=== PATIENT | male | born 1980 | race African-American/Black ===

== ENCOUNTER 2016-07-09 21:00 | Emergency (ER) | payer MEDICAID ==
[~2016-07-09] VITALS: Ht 172.7 cm; Wt 75.0 kg
[~2016-07-09 21:00] MED LIST: BACT800T5 PO; CEPH-460 PO; PERC5TAB12 PO
[2016-07-09] MEDS ORDERED: SODIUM CHLOR 0.9% 1000 ML INJ 1,000 ML IV SCH (21:13)
[2016-07-09 21:15] VITALS: BP 145/85; PULSE 93; RESP 18; TEMP 98.5; O2SAT 98
[2016-07-09] MEDS ORDERED: KETOROLAC TROMETHAMINE 30 MG/ML (IVP) VIAL IVP ONE (21:15)
[2016-07-09] MEDS ORDERED: ONDANSETRON HCL 4 MG/2 ML VIAL IVP ONE (21:15)
[2016-07-09 21:55] LABS: AUTOMATED NEUTROPHIL # 4.3 TH/MM3 (1.8-7.7); BASOPHIL % 0.4 % (0.0-2.0); EOSINOPHIL % 0.2 % (0.0-4.0); HEMATOCRIT 44.5 % (39.0-51.0); HEMO FLAGS DIFF FINAL; LYMPH % 28.1 % (9.0-44.0); MEAN CELL VOLUME 88.4 FL (80.0-100.0); MEAN CORPUSCULAR HEMOGLOBIN 29.7 PG (27.0-34.0); MEAN CORPUSCULAR HGB CONC 33.6 % (32.0-36.0); MONO % 10.5 % (0.0-8.0); NEUT % 60.8 % (16.0-70.0); PLATELET COUNT 189 TH/MM3 (150-450); RED BLOOD COUNT 5.04 MIL/MM3 (4.50-5.90); RED CELL DISTRIBUTION WIDTH 12.9 % (11.6-17.2); WHITE BLOOD COUNT 7.1 TH/MM3 (4.0-11.0)
--- NOTE | 2016-07-09 21:55 | RADRPT ---
EXAM DATE/TIME: 07/09/2016 21:44 [place] COMPARISON: SCAPULA LEFT, December 30, 2014, 20:15. CHEST SINGLE AP, January 28, 2012, 6:13. INDICATIONS : Chest Pain MEDICAL HISTORY : Unobtainable SURGICAL HISTORY : Unobtainable ENCOUNTER: Initial ACUITY: 1 day PAIN SCORE: 5/10 LOCATION: Bilateral chest FINDINGS: A single view of the chest demonstrates prominent lucency in the left upper lobe. Similar changes but to a lesser degree in the right apex. No consolidation or pleural effusion. The cardiomediastinal co ntours are unremarkable. Osseous structures are intact. CONCLUSION: Prominent lucencies in the upper lobes greater in the left upper lobe possibly related to bullous aidan nges. These are new findings from previous study. Saurabh Michaels MD on July 09, 2016 at 21:51 Board Certified Radiologist. This report was verified electronically.
[2016-07-09 22:07] LABS: BLOOD, URINE NEG (NEG); GLUCOSE,URINE 1000 mg/dL (NEG); KETONE, URINE TRACE mg/dL (NEG); NITRITE,URINE NEG (NEG); SQUAMOUS EPITHELIAL CELL URINE <1 /hpf (0-5); URINE COLOR YELLOW (YELLW/STRAW)
[2016-07-09 22:08] LABS: COMMENT (UR) CULT NOT INDICATED; CULTURE IF INDICATED CULT NOT INDICATED
[2016-07-09 22:12] LABS: AMPHETAMINE, URINE NEG (NEG); BARBITURATES, URINE NEG (NEG); COCAINE, URINE POS (NEG)
--- NOTE | 2016-07-09 22:17 | PD ---
HPI Chief Complaint: General Weakness Time Seen by Provider: 22:12 Travel History International Travel<30 days: No Contact w/Intl Traveler<30days: No Traveled to known affect area: No History of Present Illness HPI 35-year-old male that presents to the ED for evaluation of generalized weakness. Patient is not really a good historian and all of the history I can obtain from him is that he cannot eat for the past 3 days and is feeling nauseous and continues to touch his belly when I asked him if he has any pain he states that he just has no appetite. He does appear to be in some discomfort. Per the ED nurse ambulance stated that apparently the friend stated that he might have been seeing things that weren't there. This is unclear as patient doesn't seem to be complaining of this. He completely denies this. Again history is somewhat limited. He is not really a good historian. He does appear to have a history of diabetes from her medical records. Unclear if he is compliant. He denies any drug abuse or alcohol. He states that he overall doesn't feel well. He continues to mention to me that he just doesn't feel like he wants to eat. Again history is limited. Per patient the symptoms have been ongoing for 3 days but worsening today. PFSH Past Medical History Hx Anticoagulant Therapy: No Asthma: No Autoimmune Disease: No Anxiety: Yes Cardiovascular Problems: No Chemotherapy: No COPD: No Cerebrovascular Accident: No Diabetes: No Diminished Hearing: No Respiratory: No Past Surgical History Surgical History: No Previous Surgery Hysterectomy: No Social History Alcohol Use: Yes (OCCASIONALLY) Tobacco Use: Yes (HALF A PACK PER DAY) Substance Use: No Allergies-Medications (Allergen,Severity, Reaction): Coded Allergies: No Known Allergies (Verified , 07/09/16) Reported Meds & Prescriptions Reported Meds & Active Scripts Active Review of Systems ROS Limitations: Poor Historian General / Constitutional: No: Fever, Chills, Weight Gain, Weight Loss, Other Eyes: No: Diploplia, Blurred Vision, Photophobia, Drainage, Redness, Foreign Body Sensation, Pain, Tearing, Blind Spots, Visual changes, Blindness, Other HENT: No: Headaches, Vertigo, Lightheadedness, Sore Throat, Rhinitis, Rhinorrhea, Congestion, Nosebleed, Neck Stiffness, Neck Pain, Masses, Gingival Bleeding, Dental Difficulties, Ear Discharge, Earache, Other Cardiovascular: No: Chest Pain or Discomfort, Palpitations, Irregular Rhythm, Tachycardia, Diaphoresis, Syncope, Dyspnea on exertion, Varicosities, Edema, Cyanosis, Varicosities, Phlebitis, Claudication, Other Respiratory: No: Cough, Shortness of Breath, Wheezing, Sneezing, Orthopnea, Hemoptysis, Stridor, Night Sweats, Pleuritic Pain, Other Gastrointestinal: Positive: Nausea, Vomiting, Abdominal Pain, Loss of Appetite , No: Diarrhea, Hematemesis, Hematochezia, Constipation, Changes in Bowel Habits, Indigestion, Dysphagia, Other Genitourinary: No: Urgency, Frequency, Dysuria, Nocturia, Hematuria, Decreased Urinary Output, Oliguria, Hesitancy, Dribbling, Incontinence, Pelvic Pain, Flank Pain, Dyspareunia, Discharge, Dysmenorrhea, Menorrhagia, Metorrhagia, Vaginal Bleeding, Other Musculoskeletal: No: Myalgias, Arthralgias, Limited ROM, Weakness, Cramping, Edema, Pain, Atrophy, Other Skin: No Rash, No Itching, No Dryness, No Lumps, No Hives, No Change in Pigmentation, No Change in nails, No Alopecia, No Lesions, No Breast Lumps, No Breast Tenderness, No Breast Swelling, No Other Neurologic: No: Weakness, Dizziness, Syncope, Focal Abnormalities, Coordination Problem, Tremor, Ataxia, Headache, Change in Mentation, Slurred Speech, Paresthesia, Incontinence, Seizures, Sensory Disturbance, Other Psychiatric: No: Anxiety, Depression, Suicidal Ideations, Disorder of Thought, Mood Disorder, Substance Abuse, Homicidal Ideation, Other Endocrine: No: Heat Intolerance, Cold Intolerance, Polyuria, Polydipsia, Other Hematologic/Lymphatic: No: Easy Bruising, Lymph Node Enlargement, Other Physical Exam Exam Limitations: Poor Historian Narrative GENERAL: SKIN: Warm and dry. HEAD: Atraumatic. Normocephalic. EYES: Pupils equal and round. No scleral icterus. No injection or drainage. ENT: No nasal bleeding or discharge. Mucous membranes pink and moist. Tongue is midline. No uvula deviation. NECK: Trachea midline. No JVD. CARDIOVASCULAR: Regular rate and rhythm. No murmurs, S3, S4. RESPIRATORY: No accessory muscle use. Clear to auscultation. Breath sounds equal bilaterally. GASTROINTESTINAL: Abdomen soft, non-tender, nondistended. Hepatic and splenic margins not palpable. MUSCULOSKELETAL: Extremities without clubbing, cyanosis, or edema. No obvious deformities. Full range of motion of the upper and lower extremities bilaterally. 2+ pulses bilaterally. NEUROLOGICAL: Awake and alert. No obvious cranial nerve deficits. Motor grossly within normal limits. Five out of 5 muscle strength in the arms and legs. Normal speech. PSYCHIATRIC: Appropriate mood and affect; insight and judgment normal. Data Data Last Documented VS Vital Signs Date Time Temp Pulse Resp B/P Pulse Ox O2 Delivery O2 Flow Rate FiO2 07/09/16 21:18 93 18 98 Room Air 07/09/16 21:15 98.5 145/85 Orders Complete Blood Count With Diff (07/09/16 21:13) Comprehensive Metabolic Panel (07/09/16 21:13) Lipase (07/09/16 21:13) Urinalysis - C+S If Indicated (07/09/16 21:13) Magnesium (Mg) (07/09/16 21:13) Thyroid Stimulating Hormone (07/09/16 21:13) Chest, Single Ap (07/09/16 21:13) Iv Access Insert/Monitor (07/09/16 21:13) Ecg Monitoring (07/09/16 21:13) Oximetry (07/09/16 21:13) Ondansetron Inj (Zofran Inj) (07/09/16 21:15) Sodium Chlor 0.9% 1000 Ml Inj (Ns 1000 M (07/09/16 21:13) Ketorolac Inj (Toradol Inj) (07/09/16 21:15) Drug Screen, Random Urine (07/09/16 21:13) Lactic Acid (07/09/16 21:18) Creatine Kinase (Cpk) (07/09/16 21:13) Troponin I (07/09/16 22:22) Ct Abd/Pel W Iv Contrast(Rout) (07/09/16 ) Electrocardiogram (07/09/16 ) CKMB (07/09/16 21:30) CKMB% (07/09/16 21:30) Labs Laboratory Tests Test 07/09/16 07/09/16 20:30 21:30 Urine Color YELLOW Urine Turbidity CLEAR Urine pH 6.0 Urine Specific [place] 1.021 Urine Protein TRACE mg/dL Urine Glucose (UA) 1000 mg/dL Urine Ketones TRACE mg/dL Urine Occult Blood NEG Urine Nitrite NEG Urine Bilirubin NEG Urine Urobilinogen 4.0 MG/DL Urine Leukocyte Esterase NEG Urine RBC LESS THAN 1 /hpf Urine WBC LESS THAN 1 /hpf Urine Squamous Epithelial <1 /hpf Cells Microscopic Urinalysis Comment CULT NOT INDICATED Urine Opiates Screen NEG Urine Barbiturates Screen NEG Urine Amphetamines Screen NEG Urine Benzodiazepines Screen NEG Urine Cocaine Screen POS Urine Cannabinoids Screen POS White Blood Count 7.1 TH/MM3 Red Blood Count 5.04 MIL/MM3 Hemoglobin 15.0 GM/DL Hematocrit 44.5 % Mean Corpuscular Volume 88.4 FL Mean Corpuscular Hemoglobin 29.7 PG Mean Corpuscular Hemoglobin 33.6 % Concent Red Cell Distribution Width 12.9 % Platelet Count 189 TH/MM3 Mean Platelet Volume 9.0 FL Neutrophils (%) (Auto) 60.8 % Lymphocytes (%) (Auto) 28.1 % Monocytes (%) (Auto) 10.5 % Eosinophils (%) (Auto) 0.2 % Basophils (%) (Auto) 0.4 % Neutrophils # (Auto) 4.3 TH/MM3 Lymphocytes # (Auto) 2.0 TH/MM3 Monocytes # (Auto) 0.7 TH/MM3 Eosinophils # (Auto) 0.0 TH/MM3 Basophils # (Auto) 0.0 TH/MM3 CBC Comment DIFF FINAL Differential Comment Sodium Level 137 MEQ/L Potassium Level 3.9 MEQ/L Chloride Level 101 MEQ/L Carbon Dioxide Level 25.6 MEQ/L Anion Gap 10 MEQ/L Blood Urea Nitrogen 10 MG/DL Creatinine 0.84 MG/DL Estimat Glomerular Filtration 126 ML/MIN Rate Random Glucose 174 MG/DL Lactic Acid Level 1.2 mmol/L Calcium Level 9.3 MG/DL Magnesium Level 2.3 MG/DL Total Bilirubin 1.9 MG/DL Aspartate Amino Transf 17 U/L (AST/SGOT) Alanine Aminotransferase 17 U/L (ALT/SGPT) Alkaline Phosphatase 65 U/L Total Creatine Kinase 379 U/L Creatine Kinase MB 1.9 NG/ML Creatine Kinase MB % 0.5 % Troponin I LESS THAN 0.02 NG/ML Total Protein 7.3 GM/DL Albumin 4.0 GM/DL Lipase 66 U/L Thyroid Stimulating Hormone 0.449 uIU/ML 3rd Gen [facility] Medical Decision Making Medical Screen Exam Complete: Yes Emergency Medical Condition: Yes Medical Record Reviewed: Yes Interpretation(s) CBC Diagram 07/09/16 21:30 UA shows some glucose Last Impressions Chest X-Ray 07/09/163 Signed Impressions: Service Date/Time: Saturday, July 09, 2016 21:44 - CONCLUSION: Prominent lucencies in the upper lobes greater in the left upper lobe possibly related to bullous changes. These are new findings from previous study. Saurabh Michaels MD BMP Diagram 07/09/16 21:30 EKG shows sinus rhythm with no sign of acute ischemia or arrhythmia ruled out by me and attending. Lactic acid within normal limits. Differential Diagnosis Electron abnormality versus abdominal pain versus sepsis versus infection versus DKA versus nausea and vomiting versus gastroenteritis versus gastritis versus pancreatitis versus acute abdomen Narrative Course 35-year-old male that presents to the ED for evaluation of generalized weakness and nausea and vomiting. Patient was properly examined and was found to have signs and symptoms of unclear etiology. Patient is not really good historian. Patient does have a history of diabetes and last time he was here he had an elevated sugars. Unclear if is compliant. At this time I recommend labs and imaging. Patient was given IV fluids and antiemetics. Initial labs and imaging were essentially unremarkable. Patient still seems to grab his abdomen as area of pain. Because of this CT of the belly will be done to any sign of acute disease. Case will be signed out to my attending pending disposition. Before patient was signed out to my attending patient opted to leave AMA. At this time patient is capable of making this decision. AMA: The risks of leaving against medical advice without further evaluation treatment were discussed with the patient. These risks include cardiac dysfunction, cardiac dysrhythmia, possible heart attack, possible stroke or . The patient indicated understanding of these risks and appeared to have the capacity to make this decision. Diagnosis Primary Impression: Left against medical advice Scripts No Active Prescriptions or Reported Meds Disposition: 07 AGAINST MEDICAL ADVICE Condition: Stable Richie Johnson Jul 09, 2016 22:17
[2016-07-09 22:20] LABS: ANION GAP 10 MEQ/L (5-15); AST (GOT) 17 U/L (15-37); BICARBONATE 25.6 MEQ/L (21.0-32.0); BLOOD UREA NITROGEN 10 MG/DL (7-18); CHLORIDE 101 MEQ/L (98-107); GLOMERULAR FILTRATION RATE 126 ML/MIN (>89); MAGNESIUM 2.3 MG/DL (1.5-2.5); POTASSIUM 3.9 MEQ/L (3.5-5.1); SODIUM (NA) 137 MEQ/L (136-145)
[2016-07-09 22:31] LABS: ALKALINE PHOSPHATASE 65 U/L (45-117); ALT (GPT) 17 U/L (12-78); CREATINE KINASE 379 U/L (39-308); TOTAL BILIRUBIN ADULT 1.9 MG/DL (0.2-1.0)
[2016-07-09 22:43] LABS: CKMB 1.9 NG/ML (0.5-3.6)
--- NOTE | 2016-07-09 23:58 | PD ---
Physical Exam Narrative General: The patient is a well-developed well-nourished male, intermittently crying on examination, intermittently holding his head, looking about the room in a paranoid fashion, at times asking if I hear which he is hearing. Head and Neck exam: Head is normocephalic atraumatic. Eyes: EOMI, pupils are equal round and reactive to light. Nose: Midline septum with pink mucous membranes Neck: No palpable lymphadenopathy. No nuchal rigidity. No thyromegaly. Cardiovascular: Regular rate and rhythm without murmurs, gallops, or rubs. Lungs: Clear to auscultation bilaterally. No wheezes, rhonchi, or rales. Abdomen: Soft, without tenderness to palpation in all 4 quadrants of the abdomen. No guarding, rebound, or rigidity. Normal bowel sounds are audible. Extremities: No clubbing, cyanosis, or edema. 2+ pulses in all 4 extremities. Neurologic Exam: Grossly nonfocal. Skin Exam: No rash noted. Intact skin that is warm and dry. Data Data Last Documented VS Vital Signs Date Time Temp Pulse Resp B/P Pulse Ox O2 Delivery O2 Flow Rate FiO2 07/10/16 06:28 115 18 142/88 96 Room Air 07/09/16 21:15 98.5 Orders Complete Blood Count With Diff (07/09/16 21:13) Comprehensive Metabolic Panel (07/09/16 21:13) Lipase (07/09/16 21:13) Urinalysis - C+S If Indicated (07/09/16 21:13) Magnesium (Mg) (07/09/16 21:13) Thyroid Stimulating Hormone (07/09/16 21:13) Chest, Single Ap (07/09/16 21:13) Iv Access Insert/Monitor (07/09/16 21:13) Ecg Monitoring (07/09/16 21:13) Oximetry (07/09/16 21:13) Ondansetron Inj (Zofran Inj) (07/09/16 21:15) Sodium Chlor 0.9% 1000 Ml Inj (Ns 1000 M (07/09/16 21:13) Ketorolac Inj (Toradol Inj) (07/09/16 21:15) Drug Screen, Random Urine (07/09/16 21:13) Lactic Acid (07/09/16 21:18) Creatine Kinase (Cpk) (07/09/16 21:13) Troponin I (07/09/16 22:22) CKMB (07/09/16 21:30) CKMB% (07/09/16 21:30) Lorazepam Inj (Ativan Inj) (07/10/16 00:00) Haloperidol Inj (Haldol Inj) (07/10/16 00:00) Diphenhydramine Inj (Benadryl Inj) (07/10/16 00:00) Diphenhydramine Inj (Benadryl Inj) (07/10/16 00:07) Haloperidol Inj (Haldol Inj) (07/10/16 00:07) Lorazepam Inj (Ativan Inj) (07/10/16 00:07) Psych Screen (07/10/16 01:54) Alcohol (Ethanol) (07/10/16 01:54) Restraints Violent (07/10/16 02:11) Diet Regular Basic (07/10/16 Breakfast) Labs Laboratory Tests Test 07/09/16 07/09/16 20:30 21:30 Urine Color YELLOW Urine Turbidity CLEAR Urine pH 6.0 Urine Specific [place] 1.021 Urine Protein TRACE mg/dL Urine Glucose (UA) 1000 mg/dL Urine Ketones TRACE mg/dL Urine Occult Blood NEG Urine Nitrite NEG Urine Bilirubin NEG Urine Urobilinogen 4.0 MG/DL Urine Leukocyte Esterase NEG Urine RBC LESS THAN 1 /hpf Urine WBC LESS THAN 1 /hpf Urine Squamous Epithelial <1 /hpf Cells Microscopic Urinalysis Comment CULT NOT INDICATED Urine Opiates Screen NEG Urine Barbiturates Screen NEG Urine Amphetamines Screen NEG Urine Benzodiazepines Screen NEG Urine Cocaine Screen POS Urine Cannabinoids Screen POS White Blood Count 7.1 TH/MM3 Red Blood Count 5.04 MIL/MM3 Hemoglobin 15.0 GM/DL Hematocrit 44.5 % Mean Corpuscular Volume 88.4 FL Mean Corpuscular Hemoglobin 29.7 PG Mean Corpuscular Hemoglobin 33.6 % Concent Red Cell Distribution Width 12.9 % Platelet Count 189 TH/MM3 Mean Platelet Volume 9.0 FL Neutrophils (%) (Auto) 60.8 % Lymphocytes (%) (Auto) 28.1 % Monocytes (%) (Auto) 10.5 % Eosinophils (%) (Auto) 0.2 % Basophils (%) (Auto) 0.4 % Neutrophils # (Auto) 4.3 TH/MM3 Lymphocytes # (Auto) 2.0 TH/MM3 Monocytes # (Auto) 0.7 TH/MM3 Eosinophils # (Auto) 0.0 TH/MM3 Basophils # (Auto) 0.0 TH/MM3 CBC Comment DIFF FINAL Differential Comment Sodium Level 137 MEQ/L Potassium Level 3.9 MEQ/L Chloride Level 101 MEQ/L Carbon Dioxide Level 25.6 MEQ/L Anion Gap 10 MEQ/L Blood Urea Nitrogen 10 MG/DL Creatinine 0.84 MG/DL Estimat Glomerular Filtration 126 ML/MIN Rate Random Glucose 174 MG/DL Lactic Acid Level 1.2 mmol/L Calcium Level 9.3 MG/DL Magnesium Level 2.3 MG/DL Total Bilirubin 1.9 MG/DL Aspartate Amino Transf 17 U/L (AST/SGOT) Alanine Aminotransferase 17 U/L (ALT/SGPT) Alkaline Phosphatase 65 U/L Total Creatine Kinase 379 U/L Creatine Kinase MB 1.9 NG/ML Creatine Kinase MB % 0.5 % Troponin I LESS THAN 0.02 NG/ML Total Protein 7.3 GM/DL Albumin 4.0 GM/DL Lipase 66 U/L Thyroid Stimulating Hormone 0.449 uIU/ML 3rd Gen Ethyl Alcohol Level 6 MG/DL MDM Medical Record Reviewed: Yes Supervised Visit with LUIS ENRIQUE: No Interpretation(s) Last Impressions Chest X-Ray 07/09/162112 Signed Impressions: Service Date/Time: Saturday, July 09, 2016 21:44 - CONCLUSION: Prominent lucencies in the upper lobes greater in the left upper lobe possibly related to bullous changes. These are new findings from previous study. Saurabh Michaels MD Differential Diagnosis Substance-induced mood disorder, versus acute substance intoxication, versus psychosis related to schizophrenia, versus bipolar with psychotic features. Narrative Course During the course of the patients emergency department visit, the patients history, examination, and differential diagnosis were reviewed with the patient. The patient had IV access obtained and blood work sent for analysis. The patient was initially seen by Constantine, the physician blood donor unit assistant. Please see his complete history and physical. He had ordered an evaluation on the patient , however the patient decided to leave AGAINST MEDICAL ADVICE. Prior to the patient leaving and signing out AGAINST MEDICAL ADVICE the patient became agitated, paranoid, and tearful. The patient was noted to be hallucinating. The patient reports that he is hearing voices. I asked that the patient had any history of psychiatric problems and he would shake his head yes. He also should his head yes that he would like to have a psychiatrist see him, however he then became increasingly agitated and began to scream. The patient was placed in restraints for his and the staff's safety. The patient was given Ativan 2 mg IM, Benadryl 25 mg IM, and Haldol 5 mg IM. A Martinez act was written. A psychiatric screen was ordered. The patients laboratory studies were reviewed and remarkable for a white count of 7.1, hemoglobin 15, platelets 189 with 10.5 monocytes, CMP is remarkable for glucose of 174, lactic acid 1.2, total bilirubin 1.9, CPK 379 with an MB percent is 0.5, troponin I less than 0.02, TSH 0.44, lipase 66, urinalysis shows 1000 glucose otherwise unremarkable, urine drug screen is positive for cocaine and marijuana, alcohol 6. Chest x-ray shows what appears to be bolus changes in the upper lobes of the lung. The patient has been medically cleared for evaluation by the psychiatric screener for acute psychosis. Diagnosis Primary Impression: Acute psychosis Additional Impressions: Paranoid delusion Auditory hallucinations Admitting Information Admitting Physician Requests: Admit Scripts No Active Prescriptions or Reported Meds Disposition: 07 AGAINST MEDICAL ADVICE Condition: Stable Tessie Marmolejo MD Jul 09, 2016 23:58
[2016-07-10] MEDS ORDERED: LORazepam 2 MG/ML VIAL IM ONE
[2016-07-10] MEDS ORDERED: HALOPERIDOL LACTATE 5 MG/ML AMP IM ONE
[2016-07-10] MEDS ORDERED: diphenhydrAMINE HCL 50 MG/ML VIAL IM ONE
[2016-07-10] MEDS ORDERED: HALOPERIDOL LACTATE 5 MG/ML AMP ONE (00:07)
[2016-07-10] MEDS ORDERED: LORazepam 2 MG/ML VIAL ONE (00:07)
[2016-07-10] MEDS ORDERED: diphenhydrAMINE HCL 50 MG/ML VIAL ONE (00:07)
[2016-07-10 06:28] VITALS: BP 142/88; PULSE 115; RESP 18; O2SAT 96
--- NOTE | 2016-07-10 11:02 | PD ---
History of Present Illness Chief Complaint: General Weakness Time Seen by Provider: 10:45 Travel History International Travel<30 Days: No Contact w/Intl Traveler<30days: No Known affected area: No Legal Status Legal Status: Michelle Martinez Act Signed By: Michelle Jefferson Comment: Dr. Tessie Marmolejo, [place] @ [facility] [place] of Present Illness: History of Present Illness HPI 35-year-old male with no reported psychiatric history that presents to the ED initially on a voluntary basis and later BA for evaluation of generalized weakness. As per Ed documentation he presented reporting feeling weak and unable to eat x 3 days. The EMS report indicated that his friends decided to call an ambulance as he was " seeing things that were not there".While in the ED he became suspicious and guarded and began to scream that he was hearing voices and that people were out to kill him. He could not be redirected and required an ETO. Patient was then transferred to J [facility] where he was monitored overnight. he presented no behavioral concerns while in [facility]. Patient's toxicology is positive for cannabinoids as well as cocaine but he continues to deny that he uses these substances. As per EMR he has presented to Ed for evaluation of anxiety and his last visit for such was in 2004. Patient is seen in J pod. Awake, alert and oriented. He is dressed in hospital blues and is maintaining basic hygiene. Speech is low tone. he answers questions appropriately. It is clear . He appears anxious and states that he is anxious being here and that he wants to go home. He appears to be of low intellectual capacity . He denies any hallucinations and does not appear internally stimulated. he denies any suicidal or homicidal ideation, intent or plan. He continues to deny that he uses marijuana. In terms of his friend's concerns for him he states " They say I was smoking Flakka but I wasn't using that". PFSH Past Medical History Hx Anticoagulant Therapy: No Asthma: No Autoimmune Disease: No Anxiety: Yes Cardiovascular Problems: No Chemotherapy: No COPD: No Cerebrovascular Accident: No Diabetes: No Diminished Hearing: No Respiratory: No Past Surgical History Surgical History: No Previous Surgery Hysterectomy: No Psychiatric History Psychiatric History Hx Psychiatric Treatment: denies any History of Inpatient Treatment: No Guns or firearms in home: No Social History Single male . Lives with his mother. On SSI for learning disability. Hx Alcohol Use: Yes (OCCASIONALLY) Hx Tobacco Use: Yes (HALF A PACK PER DAY) Hx Substance Use: No Substance Use Type: Marijuana, Cocaine Other Substances Used: Possibly Flakka Hx of Substance Use Treatment: No Family Psychiatric History None reported Allergies-Medications (Allergen,Severity, Reaction): Coded Allergies: No Known Allergies (Verified , 07/09/16) Reported Meds & Prescriptions Reported Meds & Active Scripts Active Review of Systems Except as stated in HPI: all other systems reviewed are Neg Psychiatric: DENIES: Anxiety, Confusion, Mood changes, Depression, Hallucinations, Agitation, Suicidal Ideation, Homicidal Ideation, Delusions Exam Alert: Yes [place]: Person (ox4) Mood: Anxious Affect: Euthymic Speech: Clear, Logical Eye Contact: Indirect Memory Intact: Comment (no impairmetn) Hallucinations: Other (denies any) Delusions: No Suicidal: Ideation (denies any) Homicidal: Ideation (denies any) Insight/Judgement Poor. Not impaired MDM Medical Decision Making Medical Record Reviewed: Yes Assessment/Plan 35 year old male with no reported psychiatric history who presents to ed initially voluntary for evaluation of nausea and not eating as well as for seeing things as per his friends. While in the Ed he became agitated and paranoid. His toxicology is positive for cocaine, cannabinoids. He denies use of substances but this morning he shares that he " may have used Flakka". His presentation certainly is indicative of someone who may have ingested this substances. This morning he is clear and denies any hallucinations, paranoia or suicidal or homicidal ideation, intent or plan. The BA will be lifted and he will be discharged as he does not present criteria at this time. . Usual counseling regarding substance use is provided to this patient. Orders Complete Blood Count With Diff (07/09/16 21:13) Comprehensive Metabolic Panel (07/09/16 21:13) Lipase (07/09/16 21:13) Urinalysis - C+S If Indicated (07/09/16 21:13) Magnesium (Mg) (07/09/16 21:13) Thyroid Stimulating Hormone (07/09/16 21:13) Chest, Single Ap (07/09/16 21:13) Iv Access Insert/Monitor (07/09/16 21:13) Ecg Monitoring (07/09/16 21:13) Oximetry (07/09/16 21:13) Ondansetron Inj (Zofran Inj) (07/09/16 21:15) Sodium Chlor 0.9% 1000 Ml Inj (Ns 1000 M (07/09/16 21:13) Ketorolac Inj (Toradol Inj) (07/09/16 21:15) Drug Screen, Random Urine (07/09/16 21:13) Lactic Acid (07/09/16 21:18) Creatine Kinase (Cpk) (07/09/16 21:13) Troponin I (07/09/16 22:22) Electrocardiogram (07/09/16 ) CKMB (07/09/16 21:30) CKMB% (07/09/16 21:30) Lorazepam Inj (Ativan Inj) (07/10/16 00:00) Haloperidol Inj (Haldol Inj) (07/10/16 00:00) Diphenhydramine Inj (Benadryl Inj) (07/10/16 00:00) Diphenhydramine Inj (Benadryl Inj) (07/10/16 00:07) Haloperidol Inj (Haldol Inj) (07/10/16 00:07) Lorazepam Inj (Ativan Inj) (07/10/16 00:07) Psych Screen (07/10/16 01:54) Alcohol (Ethanol) (07/10/16 01:54) Restraints Violent (07/10/16 02:11) Diet Regular Basic (07/10/16 Breakfast) Results Vital Signs Date Time Temp Pulse Resp B/P Pulse Ox O2 Delivery O2 Flow Rate FiO2 07/10/16 06:28 115 18 142/88 96 Room Air 07/09/16 21:18 93 18 98 Room Air 07/09/16 21:15 98.5 93 18 145/85 98 Laboratory Tests Test 07/09/16 07/09/16 20:30 21:30 Urine Color YELLOW Urine Turbidity CLEAR Urine pH 6.0 Urine Specific [place] 1.021 Urine Protein TRACE Urine Glucose (UA) 1000 Urine Ketones TRACE Urine Occult Blood NEG Urine Nitrite NEG Urine Bilirubin NEG Urine Urobilinogen 4.0 Urine Leukocyte Esterase NEG Urine RBC LESS THAN 1 Urine WBC LESS THAN 1 Urine Squamous Epithelial <1 Cells Microscopic Urinalysis Comment CULT NOT INDICATED Urine Opiates Screen NEG Urine Barbiturates Screen NEG Urine Amphetamines Screen NEG Urine Benzodiazepines Screen NEG Urine Cocaine Screen POS Urine Cannabinoids Screen POS White Blood Count 7.1 Red Blood Count 5.04 Hemoglobin 15.0 Hematocrit 44.5 Mean Corpuscular Volume 88.4 Mean Corpuscular Hemoglobin 29.7 Mean Corpuscular Hemoglobin 33.6 Concent Red Cell Distribution Width 12.9 Platelet Count 189 Mean Platelet Volume 9.0 Neutrophils (%) (Auto) 60.8 Lymphocytes (%) (Auto) 28.1 Monocytes (%) (Auto) 10.5 Eosinophils (%) (Auto) 0.2 Basophils (%) (Auto) 0.4 Neutrophils # (Auto) 4.3 Lymphocytes # (Auto) 2.0 Monocytes # (Auto) 0.7 Eosinophils # (Auto) 0.0 Basophils # (Auto) 0.0 CBC Comment DIFF FINAL Differential Comment Sodium Level 137 Potassium Level 3.9 Chloride Level 101 Carbon Dioxide Level 25.6 Anion Gap 10 Blood Urea Nitrogen 10 Creatinine 0.84 Estimat Glomerular Filtration 126 Rate Random Glucose 174 Lactic Acid Level 1.2 Calcium Level 9.3 Magnesium Level 2.3 Total Bilirubin 1.9 Aspartate Amino Transf 17 (AST/SGOT) Alanine Aminotransferase 17 (ALT/SGPT) Alkaline Phosphatase 65 Total Creatine Kinase 379 Creatine Kinase MB 1.9 Creatine Kinase MB % 0.5 Troponin I LESS THAN 0.02 Total Protein 7.3 Albumin 4.0 Lipase 66 Thyroid Stimulating Hormone 0.449 3rd Gen Ethyl Alcohol Level 6 Diagnosis Primary Impression: Substance-induced psychotic disorder with hallucinations Psychiatrically Cleared: Yes Med/ Other Pt Specific Info: No Meds Exist/No RX given Prescriptions No Active Prescriptions or Reported Meds Disposition: 01 DISCHARGE HOME Condition: Stable Tiffanie Seth MAURICIO Jul 10, 2016 11:02
[2016-08-10] MEDS ORDERED: BLOO1KIT65 (09:50)
== END 2016-07-10 11:30 | disposition home or self-care (01) ==
LOC: NEPE 21:00 → NEPJ 07-10 11:30
DX: F24 Shared psychotic disorder (principal); E11.9 Type 2 diabetes mellitus without complications; F17.210 Nicotine dependence, cigarettes, uncomplicated; F14.10 Cocaine abuse, uncomplicated; F12.10 Cannabis abuse, uncomplicated; R44.0 Auditory hallucinations; F22 Delusional disorders
CPT/HCPCS: 71010; 80053; 80307; 80320; 81001; 82550; 82552; 83605; 83690; 83735; 84443; 84484; 85025; 96372; 96374; 96375; 99285; J1200; J1630; J1885; J2060; J2405; J7030

== ENCOUNTER 2016-07-17 12:29 | Emergency (ER) | payer MEDICAID ==
[2016-07-17 12:31] VITALS: BP 140/90; PULSE 100; RESP 24; TEMP 98; O2SAT 94
--- NOTE | 2016-07-17 14:44 | PD ---
HPI Chief Complaint: Skin Problem Time Seen by Provider: 14:44 Travel History International Travel<30 days: No Contact w/Intl Traveler<30days: No Traveled to known affect area: No History of Present Illness HPI 35-year-old male presents to emergency department for evaluation of an abscess on his right buttock. Patient states the worse and over the last few days. Reports 10 on 10 pain. Cannot sit on it without significant pain. No fevers or chills. No other symptoms to report. PFSH Past Medical History Hx Anticoagulant Therapy: No Asthma: No Autoimmune Disease: No Anxiety: Yes Cardiovascular Problems: No Chemotherapy: No COPD: No Cerebrovascular Accident: No Diabetes: No Diminished Hearing: No Respiratory: No Past Surgical History Hysterectomy: No Social History Alcohol Use: Yes (OCCASIONALLY) Tobacco Use: Yes (HALF A PACK PER DAY) Substance Use: No Allergies-Medications (Allergen,Severity, Reaction): Coded Allergies: No Known Allergies (Verified , 07/09/16) Reported Meds & Prescriptions Reported Meds & Active Scripts Active Ibuprofen 800 Mg Tab 800 Mg PO Q8H PRN Clindamycin (Clindamycin HCl) 150 Mg Cap 300 Mg PO Q6H Review of Systems Except as stated in HPI: all other systems reviewed are Neg Physical Exam Narrative GENERAL: Well-nourished, well-developed male patient no acute distress SKIN: There is an indurated area in the right buttock which measures about 7 cm in diameter. It is fluctuant but there is no pointing or drainage. There is a zone of inflammation around it but no lymphangitis. HEAD: Normocephalic. EYES: No scleral icterus. No injection or drainage. NECK: Supple, trachea midline. No JVD or lymphadenopathy. CARDIOVASCULAR: Regular rate and rhythm without murmurs, gallops, or rubs. RESPIRATORY: Breath sounds equal bilaterally. No accessory muscle use. GASTROINTESTINAL: Abdomen soft, non-tender, nondistended. MUSCULOSKELETAL: No cyanosis, or edema. BACK: Nontender without obvious deformity. No CVA tenderness. Data Data Last Documented VS Vital Signs Date Time Temp Pulse Resp B/P Pulse Ox O2 Delivery O2 Flow Rate FiO2 07/17/16 12:31 98.0 100 24 140/90 94 Room Air Orders Wound Culture And Gram Stain (07/17/16 15:10) MDM Medical Decision Making Medical Screen Exam Complete: Yes Emergency Medical Condition: Yes Medical Record Reviewed: Yes Differential Diagnosis abscess versus erysipelas versus cellulitis Narrative Course 35-year-old male presents to the emergency department for evaluation of an abscess on his right buttock. Patient appears otherwise well. I&D is complete. Patient is counseled on care. He agrees to return immediately with any acute worsening of symptoms. Procedures Procedure Narrative INCISION AND DRAINAGE OF ABSCESS: The area was prepped and was sterilely draped. Topical Sutton chloride was used to anesthetize the area. The area was properly anesthetized. A number 11 scalpel was used to make a 1-1/2-cm incision across the area of the abscess. Cultures were obtained. The abscess was drained an irrigated with normal saline. Quarter inch iodoform packing was placed in the wound. Sterile dressing applied. Patient advised to have packing removed in two days. Diagnosis Primary Impression: Abscess of right buttock Referrals: Primary Care Physician Patient Instructions: Abscess Incision and Drainage (ED), General Instructions Additional Instructions: Warm compresses Follow-up with primary care provider Remove packing in 2 days Return immediately to the emergency department with any acute worsening of symptoms Med/Other Pt SpecificInfo: Prescription(s) given Scripts Ibuprofen 800 Mg [id number] Mg PO Q8H PRN (PAIN SCALE 1 TO 10) #30 TAB Ref 0 Prov:Barbara Ridley 07/17/16 Clindamycin 150 Mg [id number] Mg PO Q6H #10 CAP Ref 0 Prov:Barbara Ridley 07/17/16 Disposition: 01 DISCHARGE HOME Condition: Stable Barbara Ridley Jul 17, 2016 14:44
[2016-07-17] MEDS ORDERED: IBUP800T23 PO (15:29)
[2016-07-17] MEDS ORDERED: CLIN1CAP5 PO (15:29)
[2016-08-10] MEDS ORDERED: BLOO1KIT65 (09:50)
== END 2016-07-17 16:03 | disposition home or self-care (01) ==
LOC: NEPB 12:29
DX: L02.31 Cutaneous abscess of buttock (principal); F17.210 Nicotine dependence, cigarettes, uncomplicated
CPT/HCPCS: 10061; 87070

== ENCOUNTER 2016-08-08 04:04 | Emergency (ER) | payer MEDICAID, OTHER ==
[~2016-08-08] VITALS: Ht 162.6 cm; Wt 72.0 kg
[~2016-08-08 04:04] MED LIST changes: -BACT800T5 PO; -CEPH-460 PO; +CLIN1CAP5 PO; +IBUP800T23 PO; -PERC5TAB12 PO
--- NOTE | 2016-08-08 04:20 | PD ---
HPI Chief Complaint: psychiatric evaluation Time Seen by Provider: 04:16 Travel History International Travel<30 days: No Contact w/Intl Traveler<30days: No History of Present Illness HPI Patient comes in under a Martinez act by police for seeing people chasing him. Patient reports that several hours ago he smoked Flakka, which is what was causing him to see things. Patient states he was knocking on people's doors trying to get help and that is what caused police to be called and having him brought to the hospital. Patient denies any medical concerns at this time. States he just wants to sleep. Denies any chest pain, shortness of breath, abdominal pain, headache, fevers, or currently seeing things. Denies any suicidal or homicidal ideations. PFSH Past Medical History Hx Anticoagulant Therapy: No Asthma: No Autoimmune Disease: No Anxiety: Yes Cardiovascular Problems: No Chemotherapy: No COPD: No Cerebrovascular Accident: No Diabetes: No Diminished Hearing: No Respiratory: No Past Surgical History Hysterectomy: No Social History Alcohol Use: Yes (OCCASIONALLY) Tobacco Use: Yes (HALF A PACK PER DAY) Substance Use: No Allergies-Medications (Allergen,Severity, Reaction): Coded Allergies: No Known Allergies (Verified , 08/08/16) Reported Meds & Prescriptions Reported Meds & Active Scripts Active Review of Systems Except as stated in HPI: all other systems reviewed are Neg Physical Exam Narrative GENERAL: Well-developed, well nourished, in no acute distress, and non-ill appearing. SKIN: Warm and dry. HEAD: Atraumatic. Normocephalic. EYES: Pupils equal and round. EOMI. No scleral icterus. No injection or drainage. ENT: No nasal bleeding or discharge. Mucous membranes pink and moist. NECK: Trachea midline. Supple. No nuclear rigidity. CARDIOVASCULAR: Regular rate and rhythm. No murmur appreciated. RESPIRATORY: No accessory muscle use. No respiratory distress. Clear to auscultation. Breath sounds equal bilaterally. MUSCULOSKELETAL: No obvious deformities. No clubbing. No cyanosis. No edema. Full range of motion. NEUROLOGICAL: Awake and alert. No obvious cranial nerve deficits. Motor grossly within normal limits. Normal speech. PSYCHIATRIC: Appropriate mood and affect; insight and judgment normal. Data Data Last Documented VS Vital Signs Date Time Temp Pulse Resp B/P Pulse Ox O2 Delivery O2 Flow Rate FiO2 08/08/16 18:00 86 18 117/85 Room Air 3/28/17 12:23 99 08/08/16 04:32 98.4 Orders Complete Blood Count With Diff (08/08/16 04:11) Comprehensive Metabolic Panel (08/08/16 04:11) Psych Screen (08/08/16 04:11) Drug Screen, Random Urine (08/08/16 04:11) Alcohol (Ethanol) (08/08/16 04:11) Salicylates (Aspirin) (08/08/16 04:11) Tylenol (Acetaminophen) (08/08/16 04:11) Lorazepam Inj (Ativan Inj) (08/08/16 05:15) Iv Access Insert/Monitor (08/08/16 05:23) Sodium Chlor 0.9% 1000 Ml Inj (Ns 1000 M (08/08/16 05:30) Lorazepam Inj (Ativan Inj) (08/08/16 05:45) Lorazepam Inj (Ativan Inj) (08/08/16 06:15) Blood Glucose (08/08/16 06:20) Diet Regular Basic (08/08/16 Lunch) Diet Regular Basic (08/08/16 Dinner) Labs Laboratory Tests Test 08/08/16 04:30 White Blood Count 8.6 TH/MM3 Red Blood Count 4.83 MIL/MM3 Hemoglobin 14.2 GM/DL Hematocrit 42.5 % Mean Corpuscular Volume 88.1 FL Mean Corpuscular Hemoglobin 29.3 PG Mean Corpuscular Hemoglobin 33.3 % Concent Red Cell Distribution Width 12.8 % Platelet Count 232 TH/MM3 Mean Platelet Volume 8.7 FL Neutrophils (%) (Auto) 74.3 % Lymphocytes (%) (Auto) 14.7 % Monocytes (%) (Auto) 10.1 % Eosinophils (%) (Auto) 0.2 % Basophils (%) (Auto) 0.7 % Neutrophils # (Auto) 6.4 TH/MM3 Lymphocytes # (Auto) 1.3 TH/MM3 Monocytes # (Auto) 0.9 TH/MM3 Eosinophils # (Auto) 0.0 TH/MM3 Basophils # (Auto) 0.1 TH/MM3 CBC Comment DIFF FINAL Differential Comment Sodium Level 135 MEQ/L Potassium Level 4.4 MEQ/L Chloride Level 101 MEQ/L Carbon Dioxide Level 22.1 MEQ/L Anion Gap 12 MEQ/L Blood Urea Nitrogen 11 MG/DL Creatinine 1.37 MG/DL Estimat Glomerular Filtration 72 ML/MIN Rate Random Glucose 479 MG/DL Calcium Level 9.8 MG/DL Total Bilirubin 1.0 MG/DL Aspartate Amino Transf 14 U/L (AST/SGOT) Alanine Aminotransferase 17 U/L (ALT/SGPT) Alkaline Phosphatase 72 U/L Total Protein 7.4 GM/DL Albumin 3.8 GM/DL Salicylates Level 5.2 MG/DL Urine Opiates Screen NEG Acetaminophen Level LESS THAN 2.0 MCG/ML Urine Barbiturates Screen NEG Urine Amphetamines Screen NEG Urine Benzodiazepines Screen NEG Urine Cocaine Screen NEG Urine Cannabinoids Screen NEG Ethyl Alcohol Level LESS THAN 3 MG/DL MDM Medical Decision Making Medical Screen Exam Complete: Yes Emergency Medical Condition: Yes Differential Diagnosis Acute psychosis, substance abuse, alcohol intoxication, paranoia, delusional, other Narrative Course Patient denies any known history of diabetes, however reviewing his record has had blood sugars in the 400s April 2015 but does not appear to have ever been started on any medication. Patient has had visits since with blood sugars below 200. I discussed patient with Dr. Killian, who is in agreement with plan of care and diagnosis. Patient was seen and examined. Labs were obtained and reviewed. Patient is given IV fluid due to his elevated blood sugar. Patient was given Ativan to help treat his substance-induced psychosis. Patient medically cleared for further treatment and evaluation by psych. Final disposition per psych. Diagnosis Primary Impression: Diabetes mellitus Qualified Code: E11.9 - Type 2 diabetes mellitus without complication, without long-term current use of insulin Additional Impression: Substance-induced psychotic disorder with hallucinations Referrals: [facility] Diabetes Education-Out [facility] Patient Instructions: General Instructions, Type 2 Diabetes in Adults (ED) Additional Instructions: Follow-up with your primary care physician and/or primary care clinic in one to 3 days for reevaluation of your diabetes and possible starting of medication. Return to the emergency department if symptoms get worse. Condition: Stable Guy Aguayo Aug 08, 2016 04:20
[2016-08-08 04:32] VITALS: BP 148/83; PULSE 109; RESP 16; TEMP 98.4; O2SAT 98
[2016-08-08 04:37] LABS: AUTOMATED NEUTROPHIL # 6.4 TH/MM3 (1.8-7.7); BASOPHIL # 0.1 TH/MM3 (0-0.2); BASOPHIL % 0.7 % (0.0-2.0); EOSINOPHIL % 0.2 % (0.0-4.0); HEMATOCRIT 42.5 % (39.0-51.0); HEMO FLAGS DIFF FINAL; LYMPH % 14.7 % (9.0-44.0); LYMPHOCYTE # 1.3 TH/MM3 (1.0-4.8); MEAN CELL VOLUME 88.1 FL (80.0-100.0); MEAN CORPUSCULAR HEMOGLOBIN 29.3 PG (27.0-34.0); MEAN CORPUSCULAR HGB CONC 33.3 % (32.0-36.0); MONO % 10.1 % (0.0-8.0); NEUT % 74.3 % (16.0-70.0); PLATELET COUNT 232 TH/MM3 (150-450); RED BLOOD COUNT 4.83 MIL/MM3 (4.50-5.90); RED CELL DISTRIBUTION WIDTH 12.8 % (11.6-17.2); WHITE BLOOD COUNT 8.6 TH/MM3 (4.0-11.0)
[2016-08-08 04:50] LABS: AMPHETAMINE, URINE NEG (NEG); BARBITURATES, URINE NEG (NEG); COCAINE, URINE NEG (NEG)
[2016-08-08 05:14] LABS: ACETAMINOPHEN LESS THAN 2.0 MCG/ML (10.0-30.0); ALKALINE PHOSPHATASE 72 U/L (45-117); ALT (GPT) 17 U/L (12-78); ANION GAP 12 MEQ/L (5-15); AST (GOT) 14 U/L (15-37); BICARBONATE 22.1 MEQ/L (21.0-32.0); BLOOD UREA NITROGEN 11 MG/DL (7-18); CHLORIDE 101 MEQ/L (98-107); GLOMERULAR FILTRATION RATE 72 ML/MIN (>89); POTASSIUM 4.4 MEQ/L (3.5-5.1); SODIUM (NA) 135 MEQ/L (136-145)
[2016-08-08] MEDS ORDERED: LORazepam 2 MG/ML VIAL IM ONE (05:15)
[2016-08-08] MEDS ORDERED: SODIUM CHLOR 0.9% 1000 ML INJ 1,000 ML IV ONE (05:30)
[2016-08-08] MEDS ORDERED: LORazepam 2 MG/ML VIAL IV PUSH ONE ×2 (05:45→06:15)
[2016-08-08 06:05] VITALS: PULSE 90; RESP 16; O2SAT 97
[2016-08-08 07:57] VITALS: BP 123/76; PULSE 66; RESP 16; O2SAT 98
[2016-08-08 12:23] VITALS: BP 120/71; PULSE 72; RESP 16; O2SAT 99
[2016-08-08 18:00] VITALS: BP 117/85; PULSE 86; RESP 18
[2016-08-08 22:28] VITALS: BP 136/76; PULSE 81; RESP 18; O2SAT 97
[2016-08-09 02:18] VITALS: BP 126/68; PULSE 71; RESP 18; O2SAT 95
[2016-08-09 06:12] VITALS: BP 139/64; PULSE 81; RESP 18; O2SAT 97
[2016-08-09 10:23] VITALS: BP 128/71; PULSE 72; RESP 16; O2SAT 100; O2SAT 98
[2016-08-09] MEDS ORDERED: SODIUM CHLOR 0.9% 1000 ML INJ 1,000 ML IV ONE (10:32)
[2016-08-09] MEDS ORDERED: SODIUM CHLORIDE 0.9% FLUSH 10 ML FLUSH IVF PRN (10:45)
[2016-08-09] MEDS ORDERED: metFORMIN HCL 500 MG TAB PO ONE (10:45)
[2016-08-09] MEDS ORDERED: INSULIN HUMAN REGULAR 1,000 UNITS/10 ML VIAL SQ ONE (10:45)
--- NOTE | 2016-08-09 10:51 | PD ---
HPI Chief Complaint: Psychiatric Symptoms Time Seen by Provider: 10:32 Travel History International Travel<30 days: No Contact w/Intl Traveler<30days: No Traveled to known affect area: No History of Present Illness HPI 35-year-old male was medically cleared yesterday and sent to the psych pod for psych evaluation. His blood work did have some hyperglycemia yesterday. Patient does not have history of diabetes. He says that his mother has diabetes. He does not have a primary care. He had breakfast this morning which included dinh, biscuit, orange juice and some other items. He was still in psych pod and they did a fingerstick and his blood sugar read more than 500. At this point they had cleared him from psych perspective but sent him back to the medical pod in the ER to reevaluate his hyperglycemia. His vital signs are stable. I went and spoke with the patient. He reiterated that he did not have a knowledge of diabetes that he had. His mother has history of diabetes. He does not seem to be in any other distress currently. No history of vomiting or diarrhea. No history of fever. His blood test from yesterday besides hyperglycemia was within normal limits. [facility] Past Medical History Narrative Medical List of his past medical, surgical, social and family history was reviewed from the nursing note. Hx Anticoagulant Therapy: No Asthma: No Autoimmune Disease: No Anxiety: Yes Cardiovascular Problems: No Chemotherapy: No COPD: No Cerebrovascular Accident: No Diabetes: No Diminished Hearing: No Respiratory: No Immunizations Current: Yes Tetanus Vaccination: < 5 Years Influenza Vaccination: Yes Past Surgical History Hysterectomy: No Social History Alcohol Use: Yes (OCCASIONALLY) Tobacco Use: Yes (HALF A PACK PER DAY) Substance Use: No Allergies-Medications (Allergen,Severity, Reaction): Coded Allergies: No Known Allergies (Verified , 08/08/16) Comments No known drug allergies. Reported Meds & Prescriptions Reported Meds & Active Scripts Active Accu-Chek Cyndi Connect W/Device (Blood Glucose Monitoring Suppl) 1 Kit Kit 1 Kit .ROUTE DIRECTED Glucophage (Metformin HCl) 500 Mg Tab 500 Mg PO BIDPC With meals Narrative Medication List of his home medications reviewed from the nursing note. Review of Systems Except as stated in HPI: all other systems reviewed are Neg Physical Exam Narrative GENERAL: Awake, alert, no obvious distress SKIN: Warm and dry. HEAD: Atraumatic. Normocephalic. EYES: Pupils equal and round. No scleral icterus. No injection or drainage. ENT: No nasal bleeding or discharge. Mucous membranes pink and moist. NECK: Trachea midline. No JVD. CARDIOVASCULAR: Regular rate and rhythm. No murmur appreciated. RESPIRATORY: No accessory muscle use. Clear to auscultation. Breath sounds equal bilaterally. GASTROINTESTINAL: Abdomen soft, non-tender, nondistended. Hepatic and splenic margins not palpable. MUSCULOSKELETAL: No obvious deformities. No clubbing. No cyanosis. No edema. NEUROLOGICAL: Awake and alert. No obvious cranial nerve deficits. Motor grossly within normal limits. Normal speech. PSYCHIATRIC: Appropriate mood and affect; insight and judgment normal. Data Data Last Documented VS Vital Signs Date Time Temp Pulse Resp B/P Pulse Ox O2 Delivery O2 Flow Rate FiO2 08/09/16 10:23 72 16 128/71 98 Room Air 08/08/16 04:32 98.4 Orders Complete Blood Count With Diff (08/08/16 04:11) Comprehensive Metabolic Panel (08/08/16 04:11) Psych Screen (08/08/16 04:11) Drug Screen, Random Urine (08/08/16 04:11) Alcohol (Ethanol) (08/08/16 04:11) Salicylates (Aspirin) (08/08/16 04:11) Tylenol (Acetaminophen) (08/08/16 04:11) Lorazepam Inj (Ativan Inj) (08/08/16 05:15) Iv Access Insert/Monitor (08/08/16 05:23) Sodium Chlor 0.9% 1000 Ml Inj (Ns 1000 M (08/08/16 05:30) Lorazepam Inj (Ativan Inj) (08/08/16 05:45) Lorazepam Inj (Ativan Inj) (08/08/16 06:15) Blood Glucose (08/08/16 06:20) Diet Regular Basic (08/08/16 Lunch) Diet Regular Basic (08/08/16 Dinner) Diet Regular Basic (08/09/16 Breakfast) Complete Blood Count With Diff (08/09/16 10:32) Magnesium (Mg) (08/09/16 10:32) Beta Hydroxybutyrate (Acetone) (08/09/16 10:32) Blood Glucose (08/09/16 10:32) Blood Glucose (08/09/16 11:32) Ecg Monitoring (08/09/16 10:32) Iv Access Insert/Monitor (08/09/16 10:32) Oximetry (08/09/16 10:32) NPO (08/09/16 10:32) Sodium Chlor 0.9% 1000 Ml Inj (Ns 1000 M (08/09/16 10:32) Sodium Chloride 0.9% Flush (Ns Flush) (08/09/16 10:45) Basic Metabolic Panel (Bmp) (08/09/16 10:32) Insulin Human Regular Inj (Novolin R Inj (08/09/16 10:45) Metformin (Glucophage) (08/09/16 10:45) Labs Laboratory Tests Test 08/08/16 08/09/16 04:30 10:45 White Blood Count 8.6 TH/MM3 7.6 TH/MM3 Red Blood Count 4.83 MIL/MM3 4.91 MIL/MM3 Hemoglobin 14.2 GM/DL 14.4 GM/DL Hematocrit 42.5 % 44.1 % Mean Corpuscular Volume 88.1 FL 89.7 FL Mean Corpuscular Hemoglobin 29.3 PG 29.3 PG Mean Corpuscular Hemoglobin 33.3 % 32.6 % Concent Red Cell Distribution Width 12.8 % 12.8 % Platelet Count 232 TH/MM3 219 TH/MM3 Mean Platelet Volume 8.7 FL 9.1 FL Neutrophils (%) (Auto) 74.3 % 67.4 % Lymphocytes (%) (Auto) 14.7 % 20.5 % Monocytes (%) (Auto) 10.1 % 11.0 % Eosinophils (%) (Auto) 0.2 % 0.3 % Basophils (%) (Auto) 0.7 % 0.8 % Neutrophils # (Auto) 6.4 TH/MM3 5.1 TH/MM3 Lymphocytes # (Auto) 1.3 TH/MM3 1.6 TH/MM3 Monocytes # (Auto) 0.9 TH/MM3 0.8 TH/MM3 Eosinophils # (Auto) 0.0 TH/MM3 0.0 TH/MM3 Basophils # (Auto) 0.1 TH/MM3 0.1 TH/MM3 CBC Comment DIFF FINAL DIFF FINAL Differential Comment Sodium Level 135 MEQ/L 135 MEQ/L Potassium Level 4.4 MEQ/L 5.2 MEQ/L Chloride Level 101 MEQ/L 102 MEQ/L Carbon Dioxide Level 22.1 MEQ/L 28.9 MEQ/L Anion Gap 12 MEQ/L 4 MEQ/L Blood Urea Nitrogen 11 MG/DL 12 MG/DL Creatinine 1.37 MG/DL 1.19 MG/DL Estimat Glomerular Filtration 72 ML/MIN 84 ML/MIN Rate Random Glucose 479 MG/DL 408 MG/DL Calcium Level 9.8 MG/DL 9.3 MG/DL Total Bilirubin 1.0 MG/DL Aspartate Amino Transf 14 U/L (AST/SGOT) Alanine Aminotransferase 17 U/L (ALT/SGPT) Alkaline Phosphatase 72 U/L Total Protein 7.4 GM/DL Albumin 3.8 GM/DL Salicylates Level 5.2 MG/DL Urine Opiates Screen NEG Acetaminophen Level LESS THAN 2.0 MCG/ML Urine Barbiturates Screen NEG Urine Amphetamines Screen NEG Urine Benzodiazepines Screen NEG Urine Cocaine Screen NEG Urine Cannabinoids Screen NEG Ethyl Alcohol Level LESS THAN 3 MG/DL Magnesium Level 2.3 MG/DL B-Hydroxybutyrate 0.10 MMOL/L MDM Medical Decision Making Medical Screen Exam Complete: Yes Emergency Medical Condition: Yes Medical Record Reviewed: Yes Differential Diagnosis Hyperglycemia, DKA, new onset diabetes Narrative Course 10:49 AM patient does not have a primary care. He says he'll try to find a primary care for himself. I've ordered blood test again to rule out DKA. I have ordered IV fluid bolus 2 L along with subcutaneous 10 units of regular insulin and by mouth Glucophage 500 mg. A repeat blood sugar will be done and an hour. If patient is not in DKA decide to send him home with prescription for Glucophage and Accu-Chek equipment. 11:35 AM blood test results are back. The anion gap is within normal limits. Awaiting further repeat blood sugar check. I will discharge him home with a prescription. Procedures EKG Prior to Arrival: No Diagnosis Primary Impression: Diabetes mellitus Qualified Code: E11.9 - Type 2 diabetes mellitus without complication, without long-term current use of insulin Additional Impressions: Substance-induced psychotic disorder with hallucinations Diabetes mellitus, new onset Referrals: [facility] Diabetes Education-Out Pt [facility] Patient Instructions: General Instructions, Type 2 Diabetes in Adults (ED) Additional Instructions: Follow-up with your primary care physician and/or primary care clinic in one to 3 days for reevaluation of your diabetes and possible starting of medication. Return to the emergency department if symptoms get worse. Med/Other Pt SpecificInfo: Prescription(s) given Scripts Blood Glucose Monitoring Suppl (Accu-Chek Cyndi Connect W/Device)1 Kit Kit #1 KIT .ROUTE DIRECTED Ref 0 Prov:Holli Shirley MD 08/10/16 Metformin (Glucophage)500 Mg Cjo847 Mg PO BIDPC #60 TAB Ref 0 With meals Prov:Holli Shirley MD 08/09/16 Disposition: 01 DISCHARGE HOME Condition: Stable Holli Shirley MD Aug 09, 2016 10:50
[2016-08-09 11:00] LABS: AUTOMATED NEUTROPHIL # 5.1 TH/MM3 (1.8-7.7); BASOPHIL # 0.1 TH/MM3 (0-0.2); BASOPHIL % 0.8 % (0.0-2.0); EOSINOPHIL % 0.3 % (0.0-4.0); HEMATOCRIT 44.1 % (39.0-51.0); HEMO FLAGS DIFF FINAL; LYMPH % 20.5 % (9.0-44.0); LYMPHOCYTE # 1.6 TH/MM3 (1.0-4.8); MEAN CELL VOLUME 89.7 FL (80.0-100.0); MEAN CORPUSCULAR HEMOGLOBIN 29.3 PG (27.0-34.0); MEAN CORPUSCULAR HGB CONC 32.6 % (32.0-36.0); NEUT % 67.4 % (16.0-70.0); PLATELET COUNT 219 TH/MM3 (150-450); RED BLOOD COUNT 4.91 MIL/MM3 (4.50-5.90); RED CELL DISTRIBUTION WIDTH 12.8 % (11.6-17.2); WHITE BLOOD COUNT 7.6 TH/MM3 (4.0-11.0)
[2016-08-09 11:22] LABS: BETA-HYDROXYBUTYRATE 0.1 MMOL/L (0.00-0.39); BICARBONATE 28.9 MEQ/L (21.0-32.0); MAGNESIUM 2.3 MG/DL (1.5-2.5)
[2016-08-09 11:25] LABS: POTASSIUM 5.2 MEQ/L (3.5-5.1)
[2016-08-09] MEDS ORDERED: METF500 PO (11:45)
--- NOTE | 2016-08-09 15:18 | PD.CONS ---
Provisional Diagnosis Admission Date [place] I. Substance induced psychosis, amphetamines and cannabis use disorder [place] II. Borderline intellectual dysfunction? [place] III. None [place] IV. Frequent visits to the ER with drug intoxication [place] V. 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 Patient reports that several hours ago he smoked Flakka, which is what was causing him to see things. Patient initially stated he was knocking on people' s doors trying to get help and that is what caused police to be called and having him brought to the hospital. On psychiatric evaluation today patient is found in his room, is calm, cooperative, a little bit restless, he states that he wasn't smoking weed yesterday with some friends "but apparently somebody put some shit in my cigarette and I became crazy". At the moment of this evaluation patient is logical, coherent, relevant, he denies depressive symptoms , he denies anxiety, denies perceptual disturbances, he denies suicidal and homicidal ideation. Patient denies visual and auditory hallucinations. On longitudinal observation in the ER patient has been show any aggressive behavior or agitation in the last 12 hours. Patient reports daily use of marijuana, denies the use of other drugs and alcohol. Patient has presented repeated high blood sugar reading, last one was 500. After psychiatric clearance he would be sent to the regular ER. Review of Systems Constitutional: DENIES: Diaphoretic episodes, Fatigue, Fever, Weight gain, Weight loss, Chills, Dizziness, Change in appetite, Night Sweats Endocrine: DENIES: Heat/cold intolerance, Polydipsia, Polyuria, Polyphagia Eyes: DENIES: Blurred vision, Diplopia, Eye inflammation, Eye pain, Vision loss , Photosensitivity, Double Vision Ears, nose, mouth, throat: DENIES: Tinnitus, Hearing loss, Vertigo, Nasal discharge, Oral lesions, Throat pain, Hoarseness, Ear Pain, Running Nose, Epistaxis, Sinus Pain, Toothache, Odynophagia Respiratory: DENIES: Apneas, Cough, Snoring, Wheezing, Hemoptysis, Sputum production, Shortness of breath Cardiovascular: DENIES: Chest pain, Palpitations, Syncope, Dyspnea on Exertion , PND, Lower Extremity Edema, Orthopnea, Claudication Gastrointestinal: DENIES: Abdominal pain, Black stools, Bloody stools, Constipation, Diarrhea, Nausea, Vomiting, Difficulty Swallowing, Anorexia Musculoskeletal: DENIES: Joint pain, Muscle aches, Stiffness, Joint Swelling, Back pain, Neck pain Integumentary: DENIES: Abnormal pigmentation, Nail changes, Pruritus, Rash Hematologic/lymphatic: DENIES: Bruising, Lymphadenopathy Immunologic/allergic: DENIES: Eczema, Urticaria Neurologic: DENIES: Abnormal gait, Headache, Localized weakness, Paresthesias, Seizures, Speech Problems, Tremor, Poor Balance Psychiatric: DENIES: Anxiety, Confusion, Mood changes, Depression, Hallucinations, Agitation, Suicidal Ideation, Homicidal Ideation, Delusions Past Family Social History Coded Allergies: No Known Allergies (Verified , 08/08/16) Active Scripts Metformin (Glucophage)500 Mg Fct287 Mg PO BIDPC #60 TAB Ref 0 With meals Prov:Holli Shirley MD 08/09/16 Discontinued Scripts Ibuprofen 800 Mg [id number] Mg PO Q8H PRN (PAIN SCALE 1 TO 10) #30 TAB Ref 0 Prov:Barbara Ridley 07/17/16 Clindamycin 150 Mg [id number] Mg PO Q6H #10 CAP Ref 0 Prov:Barbara Ridley 07/17/16 Family History He denies Social History Patient was born and raised in [place], he lives with girlfriend in [place], 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 Physical Exam Patient on physical exam seems to be restless, but no agitation, no aggressive behavior, no EPS, no tremors, no symptomatology of withdrawal, no rigidity. Vital Signs Vital Signs Date Time Temp Pulse Resp B/P Pulse Ox O2 Delivery O2 Flow Rate FiO2 08/09/16 10:23 72 16 128/71 98 Room Air 08/08/16 04:32 98.4 Lab Results WBC 7.6, HBG 14.2, HTC 14.2, NA 135, K5.2, random glucose is 479, creatinine 1.19, BUN 4, AST 1, AST 14, toxicology is negative Mental Status Examination Appearance man, fair hygiene, [facility], age appearing, restless, but calm and cooperative Speech: Unremarkable Orientation: x3 Thought Process: Logical, Other (concrete) Thought Content: Unremarkable Hallucination Type: None Suicidal Ideation: No Previous Suicide Attempts: No Homicidal Ideation: No Previous Homicide Attempts: No Insight: Good Judgement: WNL Affect: Good Mood: Appropriate Motor Activity: Normal gait Assessment & Plan Problem List: (1) Substance-induced psychotic disorder with hallucinations Assessment & Plan: On psychiatric evaluation today patient is clinically sober , he does not present any acute symptomatology of psychosis, delusions, perceptual disturbances. He denies suicidal or homicidal ideation, he denies visual and auditory hallucinations. Patient is logical, coherent and relevant, a little bit restless but this seems to be part of baseline. Patient has a concrete thought process which might suggest a possible borderline intellectual dysfunction. Patient admits the use of Flakka and cannabis, so his recent described bizarre and paranoid behavior in the street which led to Martinez act was most probably secondary to drug intoxication. He does not meet criteria for psychiatric admission at this moment. Motivation psycho education was provided. Patient will be sent to medical ER to address high levels of blood glucose. ICD Code: F19.951 Assessment & Plan Estimated LOS: Edilberto Amaral MD Aug 09, 2016 15:18
[2016-08-10] MEDS ORDERED: BLOO1KIT65 (09:50)
== END 2016-08-09 12:43 | disposition home or self-care (01) ==
LOC: NEPB 04:04 → NEPC 08-09 12:43
DX: F19.951 Other psychoactive substance use, unspecified with psychoactive substance-induced psychotic disorder with hallucinations (principal); E11.65 Type 2 diabetes mellitus with hyperglycemia; F17.200 Nicotine dependence, unspecified, uncomplicated
CPT/HCPCS: 80048; 80053; 80307; 82010; 83735; 85025; 96361; 96372; 96374; 96376; 99285; J1815; J2060; J7030

== ENCOUNTER 2016-10-17 14:08 | Emergency (ER) | payer MEDICAID, OTHER ==
[~2016-10-17] VITALS: Ht 172.7 cm; Wt 68.0 kg
[~2016-10-17 14:08] MED LIST changes: +BLOO1KIT65; -CLIN1CAP5 PO; -IBUP800T23 PO; +METF500 PO
[2016-10-17 14:09] VITALS: BP 135/84; PULSE 101; RESP 18; TEMP 97.8; O2SAT 99
[2016-10-17] MEDS ORDERED: SODIUM CHLOR 0.9% 1000 ML INJ 1,000 ML IV ONE ×2 (15:00)
[2016-10-17] MEDS ORDERED: INSULIN ASPART 1,000 UNITS/10 ML VIAL SQ ONE (15:00)
[2016-10-17 15:17] LABS: AUTOMATED NEUTROPHIL # 6.2 TH/MM3 (1.8-7.7); BASOPHIL # 0.1 TH/MM3 (0-0.2); BASOPHIL % 1.1 % (0.0-2.0); EOSINOPHIL # 0.1 TH/MM3 (0-0.4); EOSINOPHIL % 0.7 % (0.0-4.0); HEMATOCRIT 41.6 % (39.0-51.0); LYMPH % 19.2 % (9.0-44.0); LYMPHOCYTE # 1.7 TH/MM3 (1.0-4.8); MEAN CELL VOLUME 90.3 FL (80.0-100.0); MEAN CORPUSCULAR HEMOGLOBIN 30.5 PG (27.0-34.0); MEAN CORPUSCULAR HGB CONC 33.7 % (32.0-36.0); MONO % 8.3 % (0.0-8.0); NEUT % 70.7 % (16.0-70.0); PLATELET COUNT 196 TH/MM3 (150-450); RED BLOOD COUNT 4.61 MIL/MM3 (4.50-5.90); RED CELL DISTRIBUTION WIDTH 13.5 % (11.6-17.2); WHITE BLOOD COUNT 8.7 TH/MM3 (4.0-11.0)
--- NOTE | 2016-10-17 15:19 | PD ---
HPI Chief Complaint: Psychiatric Symptoms Time Seen by Provider: 14:16 Travel History International Travel<30 days: No Contact w/Intl Traveler<30days: No Traveled to known affect area: No History of Present Illness HPI So 36-year-old man, presents to the emergency department complaining of hearing voices. He left a residential facility in early angioedema of August. He states he lost his medications recently and has been out of her month or so. Doesn't know what they are. He also states he hasn't been able to get his metformin or glucometer. States he lives here now needs to get set up with a psychiatrist here. History Past Medical History Narrative Medical Schizophrenia Diabetes Tetanus Vaccination: < 5 Years Past Surgical History Surgical History: No Previous Surgery Social History Alcohol Use: No Tobacco Use: Yes (1/2 ppd) Allergies-Medications (Allergen,Severity, Reaction): Coded Allergies: No Known Allergies (Verified , 08/08/16) Reported Meds & Prescriptions Reported Meds & Active Scripts Active Accu-Chek Cyndi Connect W/Device (Blood Glucose Monitoring Suppl) 1 Kit Kit 1 Kit .ROUTE DIRECTED Glucophage (Metformin HCl) 500 Mg Tab 500 Mg PO BIDPC With meals Review of Systems Except as stated in HPI: all other systems reviewed are Neg Physical Exam Narrative GENERAL: Well-appearing 36-year-old man, no acute distress. SKIN: Focused skin assessment warm/dry. HEAD: Atraumatic. Normocephalic. CARDIOVASCULAR: Regular rate and rhythm. No murmur appreciated. RESPIRATORY: No accessory muscle use. Clear to auscultation. Breath sounds equal bilaterally. GASTROINTESTINAL: Abdomen soft, non-tender, nondistended. Hepatic and splenic margins not palpable. MUSCULOSKELETAL: No obvious deformities. No clubbing. No cyanosis. No edema. NEUROLOGICAL: Awake and alert. No obvious cranial nerve deficits. Motor grossly within normal limits. Normal speech. PSYCHIATRIC: Appropriate mood and affect; not obviously responding to internal stimuli. Insight and judgment fair. Data Data Last Documented VS Vital Signs Date Time Temp Pulse Resp B/P Pulse Ox O2 Delivery O2 Flow Rate FiO2 10/17/16 14:09 97.8 101 18 135/84 99 Orders Complete Blood Count With Diff (10/17/16 14:50) Basic Metabolic Panel (Bmp) (10/17/16 14:50) Iv Access Insert/Monitor (10/17/16 14:50) Sodium Chlor 0.9% 1000 Ml Inj (Ns 1000 M (10/17/16 15:00) Sodium Chlor 0.9% 1000 Ml Inj (Ns 1000 M (10/17/16 15:00) Insulin Aspart Inj (Novolog Inj) (10/17/16 15:00) Labs Laboratory Tests Test 10/17/16 15:00 White Blood Count 8.7 TH/MM3 Red Blood Count 4.61 MIL/MM3 Hemoglobin 14.0 GM/DL Hematocrit 41.6 % Mean Corpuscular Volume 90.3 FL Mean Corpuscular Hemoglobin 30.5 PG Mean Corpuscular Hemoglobin 33.7 % Concent Red Cell Distribution Width 13.5 % Platelet Count 196 TH/MM3 Mean Platelet Volume 9.3 FL Neutrophils (%) (Auto) 70.7 % Lymphocytes (%) (Auto) 19.2 % Monocytes (%) (Auto) 8.3 % Eosinophils (%) (Auto) 0.7 % Basophils (%) (Auto) 1.1 % Neutrophils # (Auto) 6.2 TH/MM3 Lymphocytes # (Auto) 1.7 TH/MM3 Monocytes # (Auto) 0.7 TH/MM3 Eosinophils # (Auto) 0.1 TH/MM3 Basophils # (Auto) 0.1 TH/MM3 CBC Comment AUTO DIFF Differential Comment AUTO DIFF CONFIRMED Platelet Estimate NORMAL Platelet Morphology Comment NORMAL Red Cell Morphology Comment NORMAL Sodium Level 136 MEQ/L Potassium Level 4.1 MEQ/L Chloride Level 101 MEQ/L Carbon Dioxide Level 25.0 MEQ/L Anion Gap 10 MEQ/L Blood Urea Nitrogen 16 MG/DL Creatinine 1.30 MG/DL Estimat Glomerular Filtration 76 ML/MIN Rate Random Glucose 500 MG/DL Calcium Level 8.7 MG/DL [facility] Medical Decision Making Medical Screen Exam Complete: Yes Emergency Medical Condition: Yes Interpretation(s) LABS: CBC is unremarkable. BMP remarkable for glucose of 500. Differential Diagnosis Schizophrenia, psychosis, diabetes, other Narrative Course Medical decision making 36-year-old man, presents complaining of hearing voices. Out of his medications for a month. Also complaining of diabetes symptoms. Blood sugars elevated. We'll check basic labs, IV fluid, refill metformin. We'll try to contact his residential facility throughout what medications he was on, either way we'll refer him to [facility]. Diagnosis Primary Impression: Hyperglycemia Additional Impression: Schizophrenia Additional Instructions: Follow-up with [facility] tomorrow to begin psychiatric care here. Return to the emergency department for any thoughts of hurting herself or others. Take metformin as prescribed. Med/Other Pt SpecificInfo: Prescription(s) given Scripts Metformin 1,000 Mg Tab1,000 Mg PO BIDPC #60 TAB Ref 0 With meals Prov:Keon Gamino MD 10/17/16 Disposition: 01 DISCHARGE HOME Condition: Stable Keon Gamino MD Oct 17, 2016 15:19
[2016-10-17 15:25] LABS: HEMO FLAGS AUTO DIFF
[2016-10-17 15:56] LABS: PLATELET ESTIMATE SMEAR NORMAL (NORMAL); PLATELET MORPHOLOGY NORMAL (NORMAL); SCAN/DIFF AUTO DIFF CONFIRMED
[2016-10-17 16:05] LABS: POTASSIUM 4.1 MEQ/L (3.5-5.1)
[2016-10-17] MEDS ORDERED: METF1000 PO (16:17)
== END 2016-10-17 16:45 | disposition home or self-care (01) ==
LOC: NEPD 14:08
DX: R73.9 Hyperglycemia, unspecified (principal); F20.9 Schizophrenia, unspecified; E11.9 Type 2 diabetes mellitus without complications; F17.210 Nicotine dependence, cigarettes, uncomplicated
CPT/HCPCS: 80048; 85025; 96360; 96372; 99284; J1815; J7030

== ENCOUNTER 2016-10-19 00:44 | Emergency (ER) | payer MEDICAID, OTHER ==
[~2016-10-19] VITALS: Ht 172.7 cm; Wt 70.0 kg
[~2016-10-19 00:44] MED LIST changes: +METF1000 PO
[2016-10-19 01:00] VITALS: BP 121/58; PULSE 71; RESP 14; TEMP 98.1; O2SAT 97
[2016-10-19 01:44] LABS: AUTOMATED NEUTROPHIL # 6.6 TH/MM3 (1.8-7.7); BASOPHIL # 0.1 TH/MM3 (0-0.2); BASOPHIL % 0.8 % (0.0-2.0); EOSINOPHIL # 0.1 TH/MM3 (0-0.4); EOSINOPHIL % 0.6 % (0.0-4.0); HEMATOCRIT 42.1 % (39.0-51.0); HEMO FLAGS DIFF FINAL; LYMPH % 20.3 % (9.0-44.0); LYMPHOCYTE # 1.9 TH/MM3 (1.0-4.8); MEAN CELL VOLUME 88.9 FL (80.0-100.0); MEAN CORPUSCULAR HEMOGLOBIN 29.5 PG (27.0-34.0); MEAN CORPUSCULAR HGB CONC 33.2 % (32.0-36.0); MONO % 9.5 % (0.0-8.0); NEUT % 68.8 % (16.0-70.0); PLATELET COUNT 189 TH/MM3 (150-450); RED BLOOD COUNT 4.74 MIL/MM3 (4.50-5.90); RED CELL DISTRIBUTION WIDTH 13.1 % (11.6-17.2); WHITE BLOOD COUNT 9.5 TH/MM3 (4.0-11.0)
[2016-10-19 01:51] LABS: AMPHETAMINE, URINE NEG (NEG); BARBITURATES, URINE NEG (NEG); COCAINE, URINE NEG (NEG)
--- NOTE | 2016-10-19 02:06 | PD ---
HPI Chief Complaint: Psychiatric Symptoms Time Seen by Provider: 01:16 Travel History International Travel<30 days: No Contact w/Intl Traveler<30days: No Traveled to known affect area: No History of Present Illness HPI 36yo M with PMH of bipolar disorder presents to the ED under Martinez Act for hearing voices. As per Martinez Act form, it states that the voices is telling him to hurt himself or others. Pt denies any suicidal or homicidal ideations. Denies any fever, chest pain, sob, n/v, abdominal pain, focal weakness or numbness. Denies any alcohol or drug use. PFSH Past Medical History Hx Anticoagulant Therapy: No Asthma: No Autoimmune Disease: No Anxiety: Yes Cardiovascular Problems: No Chemotherapy: No COPD: No Cerebrovascular Accident: No Diabetes: Yes Patient Takes Glucophage: Yes (10/18/161999) Diminished Hearing: No Psychiatric: Yes Respiratory: No Immunizations Current: Yes Past Surgical History Surgical History: No Previous Surgery Hysterectomy: No Social History Alcohol Use: Yes (occ) Tobacco Use: Yes (/2 ppd) Substance Use: No Allergies-Medications (Allergen,Severity, Reaction): Coded Allergies: No Known Allergies (Verified , 10/19/16) Reported Meds & Prescriptions Reported Meds & Active Scripts Active Metformin (Metformin HCl) 1,000 Mg Tab 1,000 Mg PO BIDPC With meals Accu-Chek Cyndi Connect W/Device (Blood Glucose Monitoring Suppl) 1 Kit Kit 1 Kit .ROUTE DIRECTED Review of Systems Except as stated in HPI: all other systems reviewed are Neg Physical Exam Narrative GENERAL: 36yo M not in distress. SKIN: Focused skin assessment warm/dry. HEAD: Atraumatic. Normocephalic. EYES: Pupils equal and round. No scleral icterus. No injection or drainage. CARDIOVASCULAR: Regular rate and rhythm. No murmur appreciated. RESPIRATORY: No accessory muscle use. Clear to auscultation. Breath sounds equal bilaterally. GASTROINTESTINAL: Abdomen soft, non-tender, nondistended. MUSCULOSKELETAL: No obvious deformities. No clubbing. No cyanosis. No edema. NEUROLOGICAL: Awake and alert. No obvious cranial nerve deficits. Motor grossly within normal limits. Normal speech. Data Data Last Documented VS Vital Signs Date Time Temp Pulse Resp B/P Pulse Ox O2 Delivery O2 Flow Rate FiO2 10/19/16 01:00 98.1 71 14 121/58 97 Room Air Orders Complete Blood Count With Diff (10/19/16 01:16) Comprehensive Metabolic Panel (10/19/16 01:16) Psych Screen (10/19/16 01:16) Drug Screen, Random Urine (10/19/16 01:16) Alcohol (Ethanol) (10/19/16 01:16) Labs Laboratory Tests Test 10/19/16 01:25 White Blood Count 9.5 TH/MM3 Red Blood Count 4.74 MIL/MM3 Hemoglobin 14.0 GM/DL Hematocrit 42.1 % Mean Corpuscular Volume 88.9 FL Mean Corpuscular Hemoglobin 29.5 PG Mean Corpuscular Hemoglobin 33.2 % Concent Red Cell Distribution Width 13.1 % Platelet Count 189 TH/MM3 Mean Platelet Volume 9.1 FL Neutrophils (%) (Auto) 68.8 % Lymphocytes (%) (Auto) 20.3 % Monocytes (%) (Auto) 9.5 % Eosinophils (%) (Auto) 0.6 % Basophils (%) (Auto) 0.8 % Neutrophils # (Auto) 6.6 TH/MM3 Lymphocytes # (Auto) 1.9 TH/MM3 Monocytes # (Auto) 0.9 TH/MM3 Eosinophils # (Auto) 0.1 TH/MM3 Basophils # (Auto) 0.1 TH/MM3 CBC Comment DIFF FINAL Differential Comment Sodium Level 138 MEQ/L Potassium Level 3.8 MEQ/L Chloride Level 103 MEQ/L Carbon Dioxide Level 27.8 MEQ/L Anion Gap 7 MEQ/L Blood Urea Nitrogen 9 MG/DL Creatinine 0.98 MG/DL Estimat Glomerular Filtration 105 ML/MIN Rate Random Glucose 304 MG/DL Calcium Level 9.0 MG/DL Total Bilirubin 1.0 MG/DL Aspartate Amino Transf 10 U/L (AST/SGOT) Alanine Aminotransferase 21 U/L (ALT/SGPT) Alkaline Phosphatase 77 U/L Total Protein 6.6 GM/DL Albumin 3.4 GM/DL Urine Opiates Screen NEG Urine Barbiturates Screen NEG Urine Amphetamines Screen NEG Urine Benzodiazepines Screen NEG Urine Cocaine Screen NEG Urine Cannabinoids Screen POS Ethyl Alcohol Level LESS THAN 3 MG/DL MDM Medical Decision Making Medical Screen Exam Complete: Yes Emergency Medical Condition: Yes Differential Diagnosis Bipolar disorder vs. schizophrenia vs. drug abuse vs. malingering Narrative Course 36yo M under martinez act for auditory hallucinations. Pt is well appearing and denies any other complaints. Labs reviewed, no leukocytosis. Glucose elevated at 304. CO2 normal. No increased anion gap. Pt has diabetes and is suppose to be on metformin. Will write standing metformin orders while pt wait for psych evaluation. Alcohol negative. U tox positive for cannabinoids. Pt is medically clear for psych evaluation. Diagnosis Primary Impression: Auditory hallucination Shama Marsh DO Oct 19, 2016 02:06
[2016-10-19 02:09] LABS: ALKALINE PHOSPHATASE 77 U/L (45-117); ALT (GPT) 21 U/L (12-78); ANION GAP 7 MEQ/L (5-15); AST (GOT) 10 U/L (15-37); BICARBONATE 27.8 MEQ/L (21.0-32.0); BLOOD UREA NITROGEN 9 MG/DL (7-18); CHLORIDE 103 MEQ/L (98-107); GLOMERULAR FILTRATION RATE 105 ML/MIN (>89); POTASSIUM 3.8 MEQ/L (3.5-5.1); SODIUM (NA) 138 MEQ/L (136-145)
[2016-10-19 03:30] VITALS: BP 130/66; PULSE 74; RESP 16; O2SAT 99
[2016-10-19 05:58] VITALS: BP 123/62; PULSE 68; RESP 12; O2SAT 98
[2016-10-19] MEDS ORDERED: OLANZapine ODT 10 MG TAB PO ONE (08:15)
[2016-10-19] MEDS: metFORMIN HCL 500 MG TAB PO SCH ×2 (08:46→21:00)
[2016-10-19 10:52] VITALS: BP 117/71; PULSE 64; RESP 18; TEMP 97.6; O2SAT 97
[2016-10-19 18:33] VITALS: BP 102/73; PULSE 80; RESP 18; TEMP 98.4; O2SAT 95
[2016-10-19 22:44] VITALS: BP 116/58; PULSE 66; RESP 18; O2SAT 97
[2016-10-20 02:43] VITALS: BP 113/65; PULSE 95; RESP 16
[2016-10-20 06:17] VITALS: BP 104/63; PULSE 51; RESP 16
[2016-10-20] MEDS: metFORMIN HCL 500 MG TAB PO SCH (09:27)
[2016-10-20 11:37] VITALS: BP 126/83; PULSE 88; RESP 18; O2SAT 100
--- NOTE | 2016-10-20 13:01 | PD ---
History of Present Illness Chief Complaint: Psychiatric Symptoms Time Seen by Provider: 13:00 Travel History International Travel<30 Days: No Contact w/Intl Traveler<30days: No Known affected area: No Legal Status Legal Status: Martinez Act Martinez Act Comment: BA signed by: PATRICK HERNANDEZ Badge#[id number], Case# [id number] History of Present Illness: 36-year-old male with a history of schizophrenia. Patient reports he is hearing voices that are critical of him. However he is not suicidal or homicidal and is cognitively intact enough to verbally contract for safety. He states he is treated in [place]. He would like prescriptions for medication to treat the voices and his anxiety. He doesn't know what he's been treated with before but states he's been off the medicines for a week. PFSH Past Medical History Medical History: Denies Significant Hx Hx Anticoagulant Therapy: No Asthma: No Autoimmune Disease: No Anxiety: Yes Cardiovascular Problems: No Chemotherapy: No COPD: No Cerebrovascular Accident: No Diabetes: Yes Patient Takes Glucophage: Yes (10/18/161999) Diminished Hearing: No Psychiatric: Yes Respiratory: No Immunizations Current: Yes Past Surgical History Surgical History: No Previous Surgery Hysterectomy: No Psychiatric History Psychiatric History Hx Psychiatric Treatment: Sees a psychiatrist in [place], cannot doctors name recall name or medications History of Inpatient Treatment: Yes Social History Hx Alcohol Use: Yes (occ) Hx Tobacco Use: Yes (1/2 ppd) Hx Substance Use: No Substance Use Type: Marijuana, Cocaine Other Substances Used: Flakka Hx of Substance Use Treatment: Yes Allergies-Medications (Allergen,Severity, Reaction): Coded Allergies: No Known Allergies (Verified , 10/19/16) Reported Meds & Prescriptions Reported Meds & Active Scripts Active Metformin (Metformin HCl) 1,000 Mg Tab 1,000 Mg PO BIDPC With meals Accu-Chek Cyndi Connect W/Device (Blood Glucose Monitoring Suppl) 1 Kit Kit 1 Kit .ROUTE DIRECTED Review of Systems Except as stated in HPI: all other systems reviewed are Neg Exam Exam Limitations: Clinical Condition, Psychotic Alert: Yes [place]: Person, Place, Date, Situation Mood: Calm Affect: Labile Speech: Clear, Logical Eye Contact: Indirect Memory Intact: Recent, Remote Hallucinations: Auditory Delusions: Yes Delusion Type: Paranoid Insight/Judgement Adequate MDM Medical Decision Making Medical Record Reviewed: Yes Assessment/Plan Martinez act being lifted and patient being discharged home with prescriptions for Zyprexa 5 mg by mouth twice a day and Ativan 1 mg by mouth twice a day. He'll be given a prescription for one-month supply. He is being referred back to [place] for outpatient psychiatric assistance. Orders Diet Regular Basic (10/19/16 Dinner) Diet Diabetic (10/20/16 Breakfast) Diet Regular Basic (10/20/16 Lunch) Results Vital Signs Date Time Temp Pulse Resp B/P Pulse Ox O2 Delivery O2 Flow Rate FiO2 10/20/16 11:37 88 18 126/83 100 Room Air 10/20/16 06:17 51 16 104/63 10/20/16 02:43 95 16 113/65 10/19/16 22:44 66 18 116/58 97 Room Air 10/19/16 18:33 98.4 80 18 102/73 95 Diagnosis Primary Impression: Auditory hallucination Additional Impression: Paranoid schizophrenia, chronic condition Problem Qualifiers Awais Guajardo MD Oct 20, 2016 13:01
[2016-10-20] MEDS ORDERED: LORA-392 PO (13:02)
[2016-10-20] MEDS ORDERED: ZYPR5TAB PO (13:02)
[2016-10-20 14:09] VITALS: BP 126/83; TEMP 97.8
== END 2016-10-20 13:45 | disposition home or self-care (01) ==
LOC: NEPC 00:44 → NEPJ 10-20 13:45
DX: F20.0 Paranoid schizophrenia (principal)
CPT/HCPCS: 80053; 80307; 85025; 99284

== ENCOUNTER 2017-02-11 08:55 | Inpatient (IN) | payer OTHER ==
[2017-02-11] VITALS (7 sets, daily range): BP systolic 106–152; BP diastolic 56–77; PULSE 82–141; RESP 18–20; TEMP 97.4–98.8; O2SAT 93–97
[~2017-02-11] VITALS: Ht 175.3 cm; Wt 74.0 kg
[~2017-02-11 08:55] MED LIST changes: +LORA-392 PO; -METF500 PO; +ZYPR5TAB PO
[2017-02-11] MEDS ORDERED: SODIUM CHLOR 0.9% 1000 ML INJ 1,000 ML IV SCH (09:05)
[2017-02-11] MEDS ORDERED: SODIUM CHLORIDE 0.9% FLUSH 5 ML FLUSH IV FLUSH PRN (09:15)
[2017-02-11] MEDS ORDERED: SODIUM CHLOR 0.9% 1000 ML INJ 1,000 ML IV ONE (09:15)
--- NOTE | 2017-02-11 09:16 | PD ---
HPI Chief Complaint: Alcohol/Drug Intoxication Time Seen by Provider: 09:05 Travel History International Travel<30 days: No Contact w/Intl Traveler<30days: No Traveled to known affect area: No History of Present Illness HPI The patient is 36 years old. He arrives as a pachceo act after he was found altered in public, paranoid, agitated. He received Ativan twice, 2 mg each time. He reports abusing "2 Mollys" last night. Police are concerned the patient might have used Flakka. Location generalized. Timing constant. Severity moderate. Hx provided by PD and EMS. PFSH Past Medical History Hx Anticoagulant Therapy: No Asthma: No Autoimmune Disease: No Anxiety: Yes Cardiovascular Problems: No Chemotherapy: No COPD: No Cerebrovascular Accident: No Diabetes: Yes Diminished Hearing: No Psychiatric: Yes Respiratory: No Immunizations Current: Yes ?: Not Past Surgical History Hysterectomy: No Social History Alcohol Use: Yes (occ) Tobacco Use: Yes (1/2 ppd) Substance Use: No Allergies-Medications (Allergen,Severity, Reaction): Coded Allergies: No Known Allergies (Verified , 10/19/16) Reported Meds & Prescriptions Reported Meds & Active Scripts Active Ativan (Lorazepam) 0.5 Mg Tab 0.5 Mg PO EVERY 12 HOURS PRN Zyprexa (Olanzapine) 5 Mg Tab 5 Mg PO BID Metformin (Metformin HCl) 1,000 Mg Tab 1,000 Mg PO BIDPC With meals Accu-Chek Cyndi Connect W/Device (Blood Glucose Monitoring Suppl) 1 Kit Kit 1 Kit .ROUTE DIRECTED Review of Systems ROS Limitations: Clinical Condition, Intoxication, Altered Mental Status Physical Exam Narrative GENERAL: 36 yo M, moderate distress 2/2 anxiety and/or intoxication SKIN: Warm. Diaphoretic. HEAD: Atraumatic. Normocephalic. EYES: Pupils equal and round. No scleral icterus. No injection or drainage. ENT: No nasal bleeding or discharge. Mucous membranes pink and moist. NECK: Trachea midline. No JVD. CARDIOVASCULAR: Tachycardia. Regular rhythm. RESPIRATORY: No accessory muscle use. Clear to auscultation. Breath sounds equal bilaterally. GASTROINTESTINAL: Abdomen soft, non-tender, nondistended. Hepatic and splenic margins not palpable. MUSCULOSKELETAL: Extremities without clubbing, cyanosis, or edema. No obvious deformities. NEUROLOGICAL: Awake alert. Moving all extremities. Speech normal. PSYCHIATRIC: Agitated. Handcuffs. Data Data Last Documented VS Vital Signs Date Time Temp Pulse Resp B/P (MAP) Pulse Ox O2 Delivery O2 Flow Rate FiO2 02/11/17 11:00 90 20 120/60 (80) 97 Room Air 02/11/17 09:06 98.8 Vs reviewed Orders Orders Complete Blood Count With Diff (02/11/17 09:05) Comprehensive Metabolic Panel (02/11/17 09:05) Creatine Kinase (Cpk) (02/11/17 09:05) Blood Glucose (02/11/17 09:05) Ecg Monitoring (02/11/17 09:05) Iv Access Insert/Monitor (02/11/17 09:05) Oximetry (02/11/17 09:05) Sodium Chloride 0.9% Flush (Ns Flush) (02/11/17 09:15) Sodium Chlor 0.9% 1000 Ml Inj (Ns 1000 M (02/11/17 09:05) Drug Screen, Random Urine (02/11/17 09:05) Alcohol (Ethanol) (02/11/17 09:05) Tylenol (Acetaminophen) (02/11/17 09:05) Salicylates (Aspirin) (02/11/17 09:05) Sodium Chlor 0.9% 1000 Ml Inj (Ns 1000 M (02/11/17 09:15) Blood Glucose (02/11/17 09:06) Blood Glucose (02/11/17 10:06) Cath For Specimen (02/11/17 09:16) Restraints Violent (02/11/17 09:17) CKMB (02/11/17 09:11) CKMB% (02/11/17 09:11) Electrocardiogram (02/11/17 09:37) Consult Psychiatry (02/11/17 ) Admit Order (Ed Use Only) (02/11/17 11:31) Labs Laboratory Tests Test 02/11/17 09:11 White Blood Count 11.7 TH/MM3 Red Blood Count 5.25 MIL/MM3 Hemoglobin 15.1 GM/DL Hematocrit 45.6 % Mean Corpuscular Volume 86.7 FL Mean Corpuscular Hemoglobin 28.7 PG Mean Corpuscular Hemoglobin Concent 33.2 % Red Cell Distribution Width 13.5 % Platelet Count 268 TH/MM3 Mean Platelet Volume 9.6 FL Neutrophils (%) (Auto) 84.2 % Lymphocytes (%) (Auto) 6.8 % Monocytes (%) (Auto) 8.4 % Eosinophils (%) (Auto) 0.0 % Basophils (%) (Auto) 0.6 % Neutrophils # (Auto) 9.8 TH/MM3 Lymphocytes # (Auto) 0.8 TH/MM3 Monocytes # (Auto) 1.0 TH/MM3 Eosinophils # (Auto) 0.0 TH/MM3 Basophils # (Auto) 0.1 TH/MM3 CBC Comment AUTO DIFF Differential Comment AUTO DIFF CONFIRMED Blood Urea Nitrogen 19 MG/DL Creatinine 2.12 MG/DL Random Glucose 310 MG/DL Total Protein 8.5 GM/DL Albumin 4.6 GM/DL Calcium Level 10.1 MG/DL Alkaline Phosphatase 78 U/L Aspartate Amino Transf (AST/SGOT) 37 U/L Alanine Aminotransferase (ALT/SGPT) 21 U/L Total Bilirubin 2.4 MG/DL Sodium Level 136 MEQ/L Potassium Level 4.4 MEQ/L Chloride Level 99 MEQ/L Carbon Dioxide Level 13.4 MEQ/L Anion Gap 24 MEQ/L Estimat Glomerular Filtration Rate 43 ML/MIN Total Creatine Kinase 1679 U/L Creatine Kinase MB 3.9 NG/ML Creatine Kinase MB % 0.2 % Salicylates Level 3.3 MG/DL Acetaminophen Level LESS THAN 2.0 MCG/ML Ethyl Alcohol Level 7 MG/DL [facility] Medical Decision Making Medical Screen Exam Complete: Yes Emergency Medical Condition: Yes Differential Diagnosis Altered mental status/psychosis due to infection/environmental exposure/ metabolic abnormality, polypharmacy, alcohol abuse/intoxication, illicit or prescribed drug abuse, malingering/secondary gain, non-organic psychiatric disease Narrative Course CBC & BMP Diagram 02/11/17 09:11 Total Protein 8.5 H, Albumin 4.6, Calcium Level 10.1, Alkaline Phosphatase 78, Aspartate Amino Transf (AST/SGOT) 37, Alanine Aminotransferase (ALT/SGPT) 21, Total Bilirubin 2.4 H Anion gap 24 Total creatinine kinase 1679 Alcohol 7 Tylenol and salicylates negative The patient has rhabdomyolysis. The patient has acute kidney injury. The patient also has anion gap acidosis. He'll be admitted for IV hydration, acute kidney injury evaluation and psychiatry screen. Heart rate 92 11:10 AM after about 1500 cc saline. Upon arrival heart rate 130. EMS gave Ativan 2 mg 2. d/w [employer], Dr. Ann, admission under Dr Conti. Critical Care Narrative Aggregate critical care time was 35 minutes. Time to perform other separately billable procedures was not included in the critical care time. My time did not include minutes spent treating any other patients simultaneously or on activities that did not directly contribute to the patient's treatment. The services I provided to this patient were to treat and/or prevent clinically significant deterioration that could result in: Harm to self or others, multiorgan injury, cardiopulmonary arrest I provided critical care services requiring my management, as noted below: Chart data review, documentation time, medication orders and management, vital sign assessments/reviewing monitor data, ordering and reviewing lab tests, ordering and interpreting/reviewing x-rays and diagnostic studies, care of the patient and discussion of the patient with the admitting physicians. Diagnosis Primary Impression: Rhabdomyolysis Qualified Codes: M62.82 - Rhabdomyolysis Additional Impressions: JEFRY (acute kidney injury) Psychosis Qualified Codes: F29 - Unspecified psychosis not due to a substance or known physiological condition Polysubstance abuse Admitting Information Admitting Physician Requests: Conner Zimmerman MD Feb 11, 2017 09:16
[2017-02-11 09:32] LABS: AUTOMATED NEUTROPHIL # 9.8 TH/MM3 (1.8-7.7); BASOPHIL # 0.1 TH/MM3 (0-0.2); BASOPHIL % 0.6 % (0.0-2.0); HEMATOCRIT 45.6 % (39.0-51.0); HEMO FLAGS AUTO DIFF; LYMPH % 6.8 % (9.0-44.0); LYMPHOCYTE # 0.8 TH/MM3 (1.0-4.8); MEAN CELL VOLUME 86.7 FL (80.0-100.0); MEAN CORPUSCULAR HEMOGLOBIN 28.7 PG (27.0-34.0); MEAN CORPUSCULAR HGB CONC 33.2 % (32.0-36.0); MONO % 8.4 % (0.0-8.0); NEUT % 84.2 % (16.0-70.0); PLATELET COUNT 268 TH/MM3 (150-450); RED BLOOD COUNT 5.25 MIL/MM3 (4.50-5.90); RED CELL DISTRIBUTION WIDTH 13.5 % (11.6-17.2); WHITE BLOOD COUNT 11.7 TH/MM3 (4.0-11.0)
[2017-02-11 09:45] LABS: ALT (GPT) 21 U/L (12-78)
[2017-02-11 10:02] LABS: ALKALINE PHOSPHATASE 78 U/L (45-117); CREATINE KINASE 1679 U/L (39-308); TOTAL BILIRUBIN ADULT 2.4 MG/DL (0.2-1.0)
[2017-02-11 10:10] LABS: ANION GAP 24 MEQ/L (5-15); AST (GOT) 37 U/L (15-37); BICARBONATE 13.4 MEQ/L (21.0-32.0); BLOOD UREA NITROGEN 19 MG/DL (7-18); CHLORIDE 99 MEQ/L (98-107); GLOMERULAR FILTRATION RATE 43 ML/MIN (>89); POTASSIUM 4.4 MEQ/L (3.5-5.1); SODIUM (NA) 136 MEQ/L (136-145)
[2017-02-11 10:16] LABS: SCAN/DIFF AUTO DIFF CONFIRMED
[2017-02-11 10:26] LABS: CKMB 3.9 NG/ML (0.5-3.6)
[2017-02-11 10:28] LABS: ACETAMINOPHEN LESS THAN 2.0 MCG/ML (10.0-30.0); ALCOHOL 7 MG/DL (0-5)
[2017-02-11] MEDS ORDERED: LACTULOSE SYRUP 20 GM/30 ML CUP PO PRN (12:00)
[2017-02-11] MEDS ORDERED: FLUMAZENIL 0.5 MG/5 ML VIAL IV PUSH PRN (12:00)
[2017-02-11] MEDS ORDERED: LORazepam 2 MG/ML VIAL IV PUSH PRN ×2 (12:00)
[2017-02-11] MEDS ORDERED: LORazepam 2 MG TAB PO PRN (12:00)
[2017-02-11] MEDS ORDERED: BISACODYL 10 MG SUPP RECTAL PRN (12:00)
[2017-02-11] MEDS ORDERED: SENNOSIDES 8.6 MG TAB PO PRN (12:00)
[2017-02-11] MEDS ORDERED: SODIUM CHLORIDE 0.9% FLUSH 10 ML FLUSH IV FLUSH PRN (12:00)
[2017-02-11] MEDS ORDERED: MAGNESIUM HYDROXIDE SUSP 30 ML CUP PO PRN (12:00)
[2017-02-11] MEDS ORDERED: LORazepam 1 MG TAB PO PRN (12:00)
[2017-02-11] MEDS ORDERED: ONDANSETRON HCL 4 MG/2 ML VIAL IVP PRN (12:00)
[2017-02-11] MEDS ORDERED: NALOXONE HCL 0.4 MG/ML AMP IV PUSH PRN (12:00)
--- NOTE | 2017-02-11 12:05 | EKG ---
Date Performed: 02/11/2017 Time Performed: 09:37:35 PTAGE: 36 years EKG: SINUS TACHYCARDIA ABNORMAL RHYTHM ECG NO PREVIOUS TRACING DOCTOR: Maikol Wilson Interpretating Date/Time 02/11/2017 12:03:37
[2017-02-11] MEDS ORDERED: GLUCAGON 1 MG/ML VIAL OTHER PRN (12:30)
[2017-02-11] MEDS ORDERED: DEXTROSE 50% IN WATER 50 ML VIAL(D50) IV PUSH PRN (12:30)
--- NOTE | 2017-02-11 14:08 | HHI.HP ---
HPI Service Family Medicine Primary Care Physician Unknown Admission Diagnosis JEFRY, Psychosis, Polysubstance Abuse, Metabolic Acidosis Diagnoses: International Travel<30 Days: No Contact w/Intl Traveler<30days: No Known Affected Area: No History of Present Illness 36-year-old male with possible past history of bipolar disorder per EMR who presented to the ED under the Martinez act after he was found altered in public. It is reported that he received 2 mg of Ativan 2 in transit. Upon interview issue is poor historian and difficult to understand secondary to low mumbling speech. Patient reports he is here because he was acting strange. Unable to obtain events immediately previous to transport. Reports he has taken 2 tabs of Katherine in the past 24 hours. Notes he has not drank any water over the past day, was hot and had to take off his shirt. Does not endorse any other drug use, alcohol use. No headache, chest pain, abdominal pain, difficulty breathing, change in vision. (James Ann MD R1) Review of Systems Constitutional: DENIES: Fever Eyes: DENIES: Blurred vision Respiratory: DENIES: Cough Cardiovascular: DENIES: Chest pain Gastrointestinal: DENIES: Abdominal pain, Nausea, Vomiting Neurologic: DENIES: Headache Psychiatric: DENIES: Confusion Other Unable to obtain most ROS due to patient's limited cooperation and ability to speak (James Ann MD R1) Past Family Social History Past Medical History Unable to obtain, possibly bipolar and diabetes per EMR Past Surgical History Unable to obtain due to limited patient cooperation ability to speak (James Ann MD R1) Allergies: Coded Allergies: No Known Allergies (Verified , 10/19/16) Family History Unable to obtain due to limited patient cooperation ability to speak Social History Alcohol: none reported recently Tobacco: Unable to obtain Drugs: Ktaherine, denies other drugs (James Ann MD R1) Physical Exam Vital Signs Vital Signs Date Time Temp Pulse Resp B/P (MAP) Pulse Ox O2 Delivery O2 Flow Rate FiO2 02/11/17 11:00 90 20 120/60 (80) 97 Room Air 02/11/17 10:00 92 20 126/68 (87) 96 Room Air 02/11/17 09:16 95 Room Air 02/11/17 09:06 141 18 02/11/17 09:06 98.8 141 20 152/67 (95) 95 Room Air 02/11/17 09:06 141 20 95 Room Air 02/11/17 09:01 98.8 141 18 152/67 (95) 95 Physical Exam GENERAL: This is a well-nourished, well-developed patient, writhing/in restraints in bed, on/off sleeping during exam. SKIN: No rashes, ecchymoses or lesions. Cool. Dry mucous membranes. HEAD: Atraumatic. Normocephalic. No temporal or scalp tenderness. EYES: Pupils equal round and reactive. Extraocular motions intact. No scleral icterus. No injection or drainage. ENT: Nose without bleeding, purulent drainage or septal hematoma. Throat without erythema, tonsillar hypertrophy or exudate. Uvula midline. Airway patent. NECK: Trachea midline. No JVD or lymphadenopathy. Supple, nontender, no meningeal signs. CARDIOVASCULAR: Regular rate and rhythm without murmurs, gallops, or rubs. RESPIRATORY: Clear to auscultation. Breath sounds equal bilaterally. No wheezes , rales, or rhonchi. GASTROINTESTINAL: Abdomen soft, non-tender, nondistended. No hepato-splenomegaly , or palpable masses. No guarding. MUSCULOSKELETAL: Extremities without clubbing, cyanosis, or edema. No joint tenderness, effusion, or edema noted. No calf tenderness. NEUROLOGICAL: Awake and alert. Oriented to person, place not time. Motor and sensory grossly within normal limits. Five out of 5 muscle strength in all muscle groups. Mumbling nearly inaudible speech, short answers. Laboratory Laboratory Tests Test 02/11/17 09:11 White Blood Count 11.7 Red Blood Count 5.25 Hemoglobin 15.1 Hematocrit 45.6 Mean Corpuscular Volume 86.7 Mean Corpuscular Hemoglobin 28.7 Mean Corpuscular Hemoglobin Concent 33.2 Red Cell Distribution Width 13.5 Platelet Count 268 Mean Platelet Volume 9.6 Neutrophils (%) (Auto) 84.2 Lymphocytes (%) (Auto) 6.8 Monocytes (%) (Auto) 8.4 Eosinophils (%) (Auto) 0.0 Basophils (%) (Auto) 0.6 Neutrophils # (Auto) 9.8 Lymphocytes # (Auto) 0.8 Monocytes # (Auto) 1.0 Eosinophils # (Auto) 0.0 Basophils # (Auto) 0.1 CBC Comment AUTO DIFF Differential Comment AUTO DIFF CONFIRMED Blood Urea Nitrogen 19 Creatinine 2.12 Random Glucose 310 Total Protein 8.5 Albumin 4.6 Calcium Level 10.1 Alkaline Phosphatase 78 Aspartate Amino Transf (AST/SGOT) 37 Alanine Aminotransferase (ALT/SGPT) 21 Total Bilirubin 2.4 Sodium Level 136 Potassium Level 4.4 Chloride Level 99 Carbon Dioxide Level 13.4 Anion Gap 24 Estimat Glomerular Filtration Rate 43 Total Creatine Kinase 1679 Creatine Kinase MB 3.9 Creatine Kinase MB % 0.2 Salicylates Level 3.3 Acetaminophen Level LESS THAN 2.0 Ethyl Alcohol Level 7 (James Ann MD R1) Result Diagram: 02/11/1791002/11/17910 Caprini VTE Risk Assessment Caprini VTE Risk Assessment: No/Low Risk (score <= 1) Caprini Risk Assessment Model Point Value = 1 Point Value = 2 Point Value = 3 Point Value = 5 Age 41-60 Minor surgery BMI > 25 kg/m2 Swollen legs Varicose veins or History of unexplained or recurrent spontaneous Oral contraceptives or hormone replacement Sepsis (< 1 month) Serious lung disease, including pneumonia (< 1 month) Abnormal pulmonary function Acute myocardial infarction Congestive heart failure (< 1 month) History of inflammatory bowel disease Medical patient at bed rest Age 61-74 Arthroscopic surgery Major open surgery (> 45 min) Laparoscopic surgery (> 45 min) Malignancy Confined to bed (> 72 hours) Immobilizing plaster cast Central venous access Age >= 75 History of VTE Family history of VTE Factor V Leiden Prothrombin [id number] Lupus anticoagulant Anticardiolipin antibodies Elevated serum homocysteine Heparin-induced thrombocytopenia Other congenital or acquired thrombophilia Stroke (< 1 month) Elective arthroplasty Hip, pelvis, or leg fracture Acute spinal cord injury (< 1 month) Prophylaxis Regimen Total Risk Factor Score Risk Level Prophylaxis Regimen 0-1 Low Early ambulation 2 Moderate Order ONE of the following: *Sequential Compression Device (SCD) *Heparin 5000 units SQ BID 3-4 Higher Order ONE of the following medications: *Heparin 5000 units SQ TID *Enoxaparin/Lovenox 40 mg SQ daily (WT < 150 kg, CrCl > 30 mL/min) *Enoxaparin/Lovenox 30 mg SQ daily (WT < 150 kg, CrCl > 10-29 mL/min) *Enoxaparin/Lovenox 30 mg SQ BID (WT < 150 kg, CrCl > 30 mL/min) AND/OR *Sequential Compression Device (SCD) 5 or more Highest Order ONE of the following medications: *Heparin 5000 units SQ TID (Preferred with Epidurals) *Enoxaparin/Lovenox 40 mg SQ daily (WT < 150 kg, CrCl > 30 mL/min) *Enoxaparin/Lovenox 30 mg SQ daily (WT < 150 kg, CrCl > 10-29 mL/min) *Enoxaparin/Lovenox 30 mg SQ BID (WT < 150 kg, CrCl > 30 mL/min) AND *Sequential Compression Device (SCD) (James Ann MD R1) Assessment and Plan Assessment and Plan 36-year-old male with possible past history of diabetes and bipolar, noted in past EMR, who came in via EMS for being altered in public. Martinez acted. 2 mg of Ativan 2 en route. Reports use of Mollys last night. Denies other drug use. Denies headache, chest pain, shortness of breath, abdominal pain. Tachycardic and hypertensive on admission. (James Ann MD R1) Attending Attestation The patient has been seen and examined. The chart and all resident notes have been reviewed. I agree that inpatient care is appropriate and that a two midnight stay is expected for the reasons documented in the resident history and physical. I have discussed this with the resident and certify the resident s order for inpatient admission. (Lindsey Conti MD) Problem List: (1) Intoxication by drug ICD Codes: F19.929 - Other psychoactive substance use, unspecified with intoxication, unspecified Plan: Reports use of 2 Mollys last night. Denies other drugs or alcohol this time. Sleepy, limited ability to communicate, mumbling. * EKG shows sinus tachycardia * Has rhabdomyolysis, plan below * Salicylates within normal limits * Acetaminophen and less than 2.0 normal * Alcohol 7 high * Follow-up drug screen * Follow-up chest x-ray * Follow-up troponin * Psychology consult (2) Rhabdomyolysis ICD Codes: M62.82 - Rhabdomyolysis Status: Acute Plan: Patient came in partially altered likely under the influence of drugs. Current incontinence found to be 1679. Received 2 L of fluids in the ED. * F/U current CK lab * Boluses needed * Trend creatine kinase * On approximately 1.5 maintenance fluids (3) Diabetes mellitus ICD Codes: E11.9 - Type 2 diabetes mellitus without complications Status: Acute Plan: Possible diabetes noted in EMR. Metformin in reconciled med list. Glucose 310 on admission. * Verify once patient is more coherent * On low-dose sliding scale insulin * Monitor glucose (4) JEFRY (acute kidney injury) ICD Codes: N17.9 - Acute kidney failure, unspecified Status: Acute Plan: Creatinine 2.12 on admission, historically reported as 0.98 and 1.30. Reports decreased water intake take over the past day. Endorses Katherine use. Given 2 L of saline in the ED. Has rhabdomyolysis. * Monitor I's and O's * Approximately 1.5 maintenance fluids * Monitor creatinine * Follow up drug screen (5) Psychiatric disorder ICD Codes: F99 - Mental disorder, not otherwise specified Plan: Past history of possible bipolar disorder or paranoid schizophrenia per EMR. On along the pain in reconciled meds * Interview when more coherent * Follow-up psych consult (6) FEN Plan: Fluids * Approximately by 1.5 maintenance fluids Electrolytes * Monitor and correct as needed Nutrition * Regular diet GI prophylaxis * As needed (James Ann MD R1) Physician Certification 2 Midnight Certification Type: Admission for Inpatient Services Order for Inpatient Services The services are ordered in accordance with Medicare regulations or non- Medicare payer requirements, as applicable. In the case of services not specified as inpatient-only, they are appropriately provided as inpatient services in accordance with the 2-midnight benchmark. Estimated LOS (days): 2 2 days is the estimated time the patient will need to remain in the hospital, assuming treatment plan goals are met and no additional complications. Post-Hospital Plan: Home (James Ann MD R1) Problem Qualifiers (1) Rhabdomyolysis: Qualified Codes: M62.82 - Rhabdomyolysis James Ann MD R1 Feb 11, 2017 14:08 Lindsey Conti MD Feb 12, 2017 16:52
--- NOTE | 2017-02-11 14:58 | RADRPT ---
EXAM DATE/TIME: 02/11/2017 14:29 [facility] COMPARISON: CHEST SINGLE AP, July 09, 2016, 21:44. INDICATIONS : Shortness of breath and dizzy. MEDICAL HISTORY : None. SURGICAL HISTORY : None. ENCOUNTER: Initial ACUITY: 1 day PAIN SCORE: Non-responsive. LOCATION: Bilateral chest FINDINGS: A single view of the chest demonstrates the lungs to be symmetrically aerated except for a large bleb in the left lung apex. There is very little lung markings therefore is difficult to rule out a pneum othorax but it is quite similar to June. The cardiomediastinal contours are unremarkable. [place] us structures are intact. CONCLUSION: Large bleb left lung apex. Rest lungs are clear. Keon Spencer MD on February 11, 2017 at 14:56 Board Certified Radiologist. This report was verified electronically.
[2017-02-11] MEDS: SODIUM CHLOR 0.9% 1000 ML INJ 1,000 ML IV SCH ×2 (16:17→22:33)
[2017-02-11] MEDS: INSULIN ASPART SUPPLEMENTAL SCALE SQ SCH ×2 (17:12→20:36)
[2017-02-11] MEDS: SODIUM CHLORIDE 0.9% FLUSH 10 ML FLUSH IV FLUSH SCH (20:28)
[2017-02-11] MEDS: LORazepam 2 MG/ML VIAL IV PUSH PRN (20:28)
[2017-02-11] MEDS: DOCUSATE SODIUM 50 MG/SENNA 8.6 MG TAB PO SCH (20:28)
[2017-02-11 21:45] LABS: HEMATOCRIT 42.4 % (39.0-51.0); MEAN CELL VOLUME 87.1 FL (80.0-100.0); MEAN CORPUSCULAR HEMOGLOBIN 28.5 PG (27.0-34.0); MEAN CORPUSCULAR HGB CONC 32.7 % (32.0-36.0); PLATELET COUNT 189 TH/MM3 (150-450); RED BLOOD COUNT 4.87 MIL/MM3 (4.50-5.90); RED CELL DISTRIBUTION WIDTH 13.5 % (11.6-17.2); REVIEW FLAG FINAL; WHITE BLOOD COUNT 13.9 TH/MM3 (4.0-11.0)
[2017-02-11 21:58] LABS: PROTHROMBIN TIME - PATIENT 11.2 SEC (9.8-11.6)
[2017-02-11 22:05] LABS: BICARBONATE 25.2 MEQ/L (21.0-32.0); POTASSIUM 3.3 MEQ/L (3.5-5.1)
[2017-02-11 22:29] LABS: CKMB 22.9 NG/ML (0.5-3.6)
[2017-02-11] MEDS ORDERED: POTASSIUM CHLORIDE 10 MEQ CONTROLLED RELEASE TAB PO ONE (22:30)
[2017-02-11 23:11] LABS: MAGNESIUM 2.6 MG/DL (1.5-2.5)
[2017-02-12] VITALS: BP 114/57; PULSE 87; RESP 18; TEMP 97.8; O2SAT 95
[2017-02-12] MEDS: LORazepam 2 MG/ML VIAL IV PUSH PRN ×3 (00:04→10:12)
[2017-02-12 04:00] VITALS: BP 148/92; PULSE 72; RESP 21; TEMP 98; O2SAT 99
[2017-02-12] MEDS: SODIUM CHLOR 0.9% 1000 ML INJ 1,000 ML IV SCH ×2 (04:21→10:11)
[2017-02-12 08:00] VITALS: BP 132/83; PULSE 84; RESP 20; TEMP 97.8; O2SAT 100
[2017-02-12] MEDS: SODIUM CHLORIDE 0.9% FLUSH 10 ML FLUSH IV FLUSH SCH (09:00)
[2017-02-12 09:20] LABS: BACTERIA, URINE OCC /hpf; BLOOD, URINE LARGE (NEG); COMMENT (UR) CULT NOT INDICATED; CULTURE IF INDICATED CULT NOT INDICATED; GLUCOSE,URINE 1000 mg/dL (NEG); HYALINE CAST, URINE 7 /lpf (RARE); KETONE, URINE 40 mg/dL (NEG); MUCUS URINE FEW /lpf (OCC); NITRITE,URINE NEG (NEG); PH, URINE 5.5 (5.0-8.5); SQUAMOUS EPITHELIAL CELL URINE 1 /hpf (0-5); URIC ACID CRYSTALS, URINE FEW /hpf; URINE COLOR YELLOW (YELLW/STRAW)
[2017-02-12] MEDS: DOCUSATE SODIUM 50 MG/SENNA 8.6 MG TAB PO SCH (09:31)
[2017-02-12] MEDS: INSULIN ASPART SUPPLEMENTAL SCALE SQ SCH ×2 (09:32→12:00)
[2017-02-12 12:00] VITALS: BP 121/70; PULSE 59; RESP 18; TEMP 97.3; O2SAT 98
[2017-02-12 12:17] LABS: HEMATOCRIT 46.6 % (39.0-51.0); MEAN CELL VOLUME 90.7 FL (80.0-100.0); MEAN CORPUSCULAR HEMOGLOBIN 28.9 PG (27.0-34.0); MEAN CORPUSCULAR HGB CONC 31.9 % (32.0-36.0); PLATELET COUNT 136 TH/MM3 (150-450); RED BLOOD COUNT 5.14 MIL/MM3 (4.50-5.90); RED CELL DISTRIBUTION WIDTH 14.2 % (11.6-17.2); WHITE BLOOD COUNT 7.3 TH/MM3 (4.0-11.0)
[2017-02-12 12:20] LABS: REVIEW FLAG FINAL
[2017-02-12 12:27] LABS: ANION GAP 7 MEQ/L (5-15); AST (GOT) 113 U/L (15-37); BICARBONATE 19.9 MEQ/L (21.0-32.0); BLOOD UREA NITROGEN 13 MG/DL (7-18); CHLORIDE 112 MEQ/L (98-107); GLOMERULAR FILTRATION RATE 122 ML/MIN (>89); SODIUM (NA) 139 MEQ/L (136-145)
[2017-02-12 12:29] LABS: ALT (GPT) 42 U/L (12-78); POTASSIUM 4.4 MEQ/L (3.5-5.1)
[2017-02-12 12:41] LABS: ALKALINE PHOSPHATASE 65 U/L (45-117); CREATINE KINASE 5235 U/L (39-308); TOTAL BILIRUBIN ADULT 3.1 MG/DL (0.2-1.0)
--- NOTE | 2017-02-12 14:56 | PD.PSY.CON ---
Provisional Diagnosis Admission Date Feb 11, 2017 at 12:03 Leary I. Substance induced psychosis, history of schizophrenia, intellectual disability Leary II. Deferred Leary III. No significant medical history History of Present Illness Service Psychiatry Consult Requested By Reason for Consult Bizarre behavior Primary Care Physician Unknown HPI The patient is a 36-year-old man, domiciled, single, with psychiatric history of schizophrenia, intellectual disability, polysubstance dependence, no previous psychiatric hospitalizations, multiple point encounters on the Martinez act due to drug related issues, is known by the psychiatric service , no previous suicidal attempts, no significant medical history, who presented to the ED under the Martinez act after he was found altered in public. It is reported that he received 2 mg of Ativan 2 in transit. Upon interview issue is poor historian and difficult to understand secondary to low mumbling speech. Patient reports he is here because he was acting strange. Unable to obtain events immediately previous to transport. Reports he has taken 2 tabs of Katherine in the past 24 hours. Notes he has not drank any water over the past day, was hot and had to take off his shirt. He also reports occasional use of Flacca cocaine. On psychiatric evaluation today patient is restrained in 2 points. However he is calm, cooperative, difficult to understand. Patient reports good mood, he denies suicidal and homicidal ideation, he denies visual and auditory hallucinations. Fully oriented 3, without any attention deficit, no fluctuation of consciousness. He denies visual and auditory hallucinations at this moment. Review of Systems Constitutional: DENIES: Diaphoretic episodes, Fatigue, Fever, Weight gain, Weight loss, Chills, Dizziness, Change in appetite, Night Sweats Endocrine: DENIES: Heat/cold intolerance, Polydipsia, Polyuria, Polyphagia Eyes: DENIES: Blurred vision, Diplopia, Eye inflammation, Eye pain, Vision loss , Photosensitivity, Double Vision Ears, nose, mouth, throat: DENIES: Tinnitus, Hearing loss, Vertigo, Nasal discharge, Oral lesions, Throat pain, Hoarseness, Ear Pain, Running Nose, Epistaxis, Sinus Pain, Toothache, Odynophagia Respiratory: DENIES: Apneas, Cough, Snoring, Wheezing, Hemoptysis, Sputum production, Shortness of breath Cardiovascular: DENIES: Chest pain, Palpitations, Syncope, Dyspnea on Exertion , PND, Lower Extremity Edema, Orthopnea, Claudication Gastrointestinal: DENIES: Abdominal pain, Black stools, Bloody stools, Constipation, Diarrhea, Nausea, Vomiting, Difficulty Swallowing, Anorexia Musculoskeletal: DENIES: Joint pain, Muscle aches, Stiffness, Joint Swelling, Back pain, Neck pain Integumentary: DENIES: Abnormal pigmentation, Nail changes, Pruritus, Rash Hematologic/lymphatic: DENIES: Bruising, Lymphadenopathy Immunologic/allergic: DENIES: Eczema, Urticaria Neurologic: DENIES: Abnormal gait, Headache, Localized weakness, Paresthesias, Seizures, Speech Problems, Tremor, Poor Balance Psychiatric: DENIES: Anxiety, Confusion, Mood changes, Depression, Hallucinations, Agitation, Suicidal Ideation, Homicidal Ideation, Delusions Past Family Social History Coded Allergies: No Known Allergies (Verified , 10/19/16) Active Scripts Lorazepam (Ativan) 0.5 Mg Tab, 0.5 MG PO every 12 hours Y for ANXIETY AND/OR AGITATION, #60 TAB 0 Refills Prov:Awais Guajardo MD 10/20/16 Olanzapine (Zyprexa) 5 Mg Tab, 5 MG PO BID, #60 TAB 0 Refills Prov:Awais Guajardo MD 10/20/16 Metformin (Metformin) 1,000 Mg Tab, 1000 MG PO BIDPC for Blood Sugar Management , #60 TAB 0 Refills With meals Prov:Keon Gamino MD 10/17/16 Blood Glucose Monitoring Suppl (Accu-Chek Cyndi Connect W/Device) 1 Kit Kit, 1 KIT .ROUTE DIRECTED for Blood Sugar Management, #1 KIT 0 Refills Prov:Holli Shirley MD 08/10/16 Current Medications Medications (Trade) Dose Ordered Sig/Jaxon Route Start Time Stop Time Status Last Admin Sodium Chloride 1,000 ml @ 175 mls/hr Q5H43M IV 02/11/17 12:00 02/12/17 10:11 (NS Flush) 2 ml UNSCH PRN IV FLUSH 02/11/17 12:00 (NS Flush) 2 ml BID IV FLUSH 02/11/17 21:00 02/11/17 20:28 (Zofran Inj) 4 mg Q6H PRN IVP 02/11/17 12:00 (Narcan Inj) 0.4 mg UNSCH PRN IV PUSH 02/11/17 12:00 (Liberty-Colace) 1 tab BID PO 02/11/17 21:00 02/12/17 09:31 (Milk Of Magnesia Liq) 30 ml Q12H PRN PO 02/11/17 12:00 (Senokot) 17.2 mg Q12H PRN PO 02/11/17 12:00 (Dulcolax Supp) 10 mg DAILY PRN RECTAL 02/11/17 12:00 (Lactulose Liq) 30 ml DAILY PRN PO 02/11/17 12:00 (Romazicon Inj) 0.2 mg Q1M PRN IV PUSH 02/11/17 12:00 (Ativan) 1 mg Q4H PRN PO 02/11/17 12:00 (Ativan Inj) 1 mg Q4H PRN IV PUSH 02/11/17 12:00 02/12/17 04:20 (Ativan) 2 mg Q2H PRN PO 02/11/17 12:00 02/11/17 21:51 (Ativan Inj) 2 mg Q2H PRN IV PUSH 02/11/17 12:00 02/12/17 10:12 (Ativan Inj) 2 mg Q1H PRN IV PUSH 02/11/17 12:00 (Ativan Inj) 2 mg Q15M PRN IV PUSH 02/11/17 12:00 02/11/17 15:34 (NovoLOG SUPPLEMENTAL SCALE) 1 ACHS SLIDING SCALE SQ 02/11/17 17:00 02/12/17 09:32 (D50w (Vial) Inj) 50 ml UNSCH PRN IV PUSH 02/11/17 12:30 (Glucagon Inj) 1 mg UNSCH PRN OTHER 02/11/17 12:30 Family History No family psychiatric history Social History Patient was born and raised in [place], he lives [facility], single, unemployed, Patient's Strengths (min. 2) Verbal communication Physical Exam No EPS, no tremors, no psychomotor agitation or retardation, no gait disturbances, no skin abnormalities. Vital Signs Vital Signs Date Time Temp Pulse Resp B/P (MAP) Pulse Ox O2 Delivery O2 Flow Rate FiO2 02/12/17 12:00 97.3 59 18 121/70 (87) 98 02/12/17 04:00 Room Air I/O 02/12/17 02/12/17 02/13/17 08:00 16:00 00:00 Intake Total 1140 ml 1000 ml Balance 1140 ml 1000 ml Lab Results Test 02/11/17 21:00 02/12/17 09:00 02/12/17 09:35 02/12/17 11:11 White Blood Count 13.9 TH/MM3 7.3 TH/MM3 Red Blood Count 4.87 MIL/MM3 5.14 MIL/MM3 Hemoglobin 13.9 GM/DL 14.9 GM/DL Hematocrit 42.4 % 46.6 % Mean Corpuscular Volume 87.1 FL 90.7 FL Mean Corpuscular Hemoglobin 28.5 PG 28.9 PG Mean Corpuscular Hemoglobin Concent 32.7 % 31.9 % Red Cell Distribution Width 13.5 % 14.2 % Platelet Count 189 TH/MM3 136 TH/MM3 Mean Platelet Volume 9.3 FL 9.2 FL Prothrombin Time 11.2 SEC Prothromb Time International Ratio 1.0 RATIO Activated Partial Thromboplast Time 23.0 SEC Blood Urea Nitrogen 18 MG/DL 13 MG/DL Creatinine 1.16 MG/DL 0.86 MG/DL Random Glucose 103 MG/DL 150 MG/DL Calcium Level 9.2 MG/DL 8.7 MG/DL Sodium Level 140 MEQ/L 139 MEQ/L Potassium Level 3.3 MEQ/L 4.4 MEQ/L Chloride Level 107 MEQ/L 112 MEQ/L Carbon Dioxide Level 25.2 MEQ/L 19.9 MEQ/L Anion Gap 8 MEQ/L 7 MEQ/L Estimat Glomerular Filtration Rate 86 ML/MIN 122 ML/MIN Lactic Acid Level 2.1 mmol/L 1.4 mmol/L Phosphorus Level 2.5 MG/DL Magnesium Level 2.6 MG/DL Total Creatine Kinase 6953 U/L 5235 U/L Creatine Kinase MB 22.9 NG/ML 14.0 NG/ML Creatine Kinase MB % 0.3 % 0.3 % Troponin I 0.04 NG/ML Total Protein 6.7 GM/DL Albumin 3.2 GM/DL Alkaline Phosphatase 65 U/L Aspartate Amino Transf (AST/SGOT) 113 U/L Alanine Aminotransferase (ALT/SGPT) 42 U/L Total Bilirubin 3.1 MG/DL Mental Status Examination Appearance man, disheveled, age appearing, he is calm and cooperative Speech: Unremarkable Memory: Unremarkable Thought Process: Logical Thought Content: Unremarkable Hallucination Type: None Suicidal Ideation: No Previous Suicide Attempts: No Homicidal Ideation: No Previous Homicide Attempts: No Affect: Good Mood: Appropriate Motor Activity: Normal gait Assessment & Plan Problem List: (1) Polysubstance abuse ICD Codes: F19.10 - Other psychoactive substance abuse, uncomplicated Status: Acute Assessment & Plan: At the moment of the psychiatric evaluation the patient does not present any acute, concerning her significant symptomatology of depression, anxiety, david or psychosis. Denies suicidal and homicidal ideation , he denies visual and auditory hallucinations. His bizarre, psychotic, agitated behavior reported by staff and Martinez act is most probably secondary to acute drug intoxication. Patient admitted that he has been using Katherine and also Flacca, two strong psychogenic substances. He seems to be clinically sober at this moment. I did not see any indication for psychiatric admission at this moment. Patient should be referred to a comprehensive rehabilitation program. No psychotropics indicated at this moment. Motivation, support and psychoeducation provided. Consult appreciated. Assessment & Plan Estimated LOS: Edilberto Amaral MD Feb 12, 2017 14:56
--- NOTE | 2017-02-12 15:36 | HHI.FPPN ---
Subjective Subjective Patient seen and examined with the resident team this am. Case reviewed and discussed Please refer to resident H&P for further details regarding HPI, ROS, PMH, SurgHx , FH and SocHx In summary, patient is a 36yoM with a history of prior psychiatric admission presenting under Martinez Act after unusual behvior in public. Patient reportedly had unusual behavior over the 2 days prior to admission after suspected drug use initially thought to be Mollys At the time of our encounter, patient is restrained, mother present at bedside reporting patient has a history of Flakka use. Patient obviously agitated at time of our encounter, had already ripped off soft restraints. [facility] Objective Objective Last Impressions Chest X-Ray 02/11/17 0000 Signed Impressions: Service Date/Time: Saturday, February 11, 2017 14:29 - CONCLUSION: Large bleb left lung apex. Rest lungs are clear. Keon Spencer MD Laboratory Tests - Abnormals Test 02/11/17 21:00 02/12/17 09:00 02/12/17 09:35 02/12/17 11:11 White Blood Count 13.9 TH/MM3 Activated Partial Thromboplast Time 23.0 SEC Potassium Level 3.3 MEQ/L Estimat Glomerular Filtration Rate 86 ML/MIN Lactic Acid Level 2.1 mmol/L Magnesium Level 2.6 MG/DL Total Creatine Kinase 6953 U/L 5235 U/L Creatine Kinase MB 22.9 NG/ML 14.0 NG/ML Mean Corpuscular Hemoglobin Concent 31.9 % Platelet Count 136 TH/MM3 Random Glucose 150 MG/DL Albumin 3.2 GM/DL Aspartate Amino Transf (AST/SGOT) 113 U/L Total Bilirubin 3.1 MG/DL Chloride Level 112 MEQ/L Carbon Dioxide Level 19.9 MEQ/L Vital Signs 02/11/17 02/11/17 02/11/17 02/11/17 15:40 18:10 20:00 20:00 Temp 97.4 97.9 Pulse 82 96 Resp 18 19 B/P (MAP) 106/56 (73) 108/77 (87) Pulse Ox 96 93 O2 Delivery Room Air 02/12/17 02/12/17 02/12/17 02/12/17 00:00 00:00 04:00 04:00 Temp 97.8 98.0 Pulse 87 72 Resp 18 21 B/P (MAP) 114/57 (76) 148/92 (110) Pulse Ox 95 99 O2 Delivery Room Air Room Air 02/12/17 02/12/17 08:00 12:00 Temp 97.8 97.3 Pulse 84 59 Resp 20 18 B/P (MAP) 132/83 (99) 121/70 (87) Pulse Ox 100 98 INTAKE & OUTPUT 02/13/17 06:59 Intake Total 1000 ml Balance 1000 ml Physical exam GENERAL: wdwn male, sitting up in bed, anxious SKIN: Warm and dry. No rashes HEAD: Normocephalic. AT EYES: No scleral icterus. No injection or drainage. ENT: OP dry NECK: Supple, trachea midline. No JVD or lymphadenopathy. CARDIOVASCULAR: Regular rate and rhythm without murmurs, gallops, or rubs. RESPIRATORY: Breath sounds equal bilaterally. No accessory muscle use. GASTROINTESTINAL: Abdomen soft, non-tender, nondistended. Normal active BS MUSCULOSKELETAL: No cyanosis, or edema. No calf tenderness BACK: Nontender without obvious deformity. No CVA tenderness. NEURO: Awake and alert. PSYCH: Anxious, paranoid. Denies hallucinations. Assessment Assessment 36yoM with: Bipolar/Schizophrenia AMS, suspect substance-induced Martinez Act Substance abuse Rhabdomyolysis ARF Dehydration Leukocytosis DM Lactic Acidosis PLAN PLAN IVF resuscitation Psych consult Trend BMP, cbc Accu-checks Strict Is/Os UDS Trend CK Patient seen and examined. Case reviewed and discussed Agree with plan of care as discussed with me and documented in the resident note. Lindsey Conti MD Feb 12, 2017 15:36
[2017-02-12 16:00] VITALS: BP 117/73; PULSE 55; RESP 18; TEMP 97.5; O2SAT 97
--- NOTE | 2017-02-12 17:49 | HHI.PR ---
Addendum to Inpatient Note Addendum Reason: Additional Documentation Additional Information Patient was seen and interviewed around 5:00 pm this afternoon. He wished to leave the hospital at this point. When speaking with the patient he was fully alert and oriented and seemed capable to make informed decisions. It was explained to him the reasons for keeping him in the hospital, including his current diagnoses and the possible negative outcomes upon leaving. He expressed understanding and still demonstrated a desire to leave. He did not endorse homicidal or suicidal ideation and did not pose a threat to himself or others at this time. It was encouraged he continue care to completion of treatment in the hospital. James Ann MD R1 Feb 12, 2017 17:49
--- NOTE | 2017-02-12 18:17 | PD.AMA ---
Against Medical Advice Note Diagnosis: (1) Rhabdomyolysis (2) Acute kidney injury (3) Intoxication by drug Discharge Disposition: Against Medical Advice AMA Statement Patient Jovan Cristina has decided to leave the hospital against medical advice. This patient has the capacity to refuse care and understands the risks of leaving, including permanent disability and/or , and has had an opportunity to ask questions about his condition. The patient has been informed that he may return for care at any time, and follow up has been arranged/ advised. Patient will not be accepted back to family medicine physician assistant service James Ann MD R1 Feb 12, 2017 18:17
[2017-02-12 19:37] LABS: HEMOGLOBIN A1a 0.6 %; HEMOGLOBIN A1b 1.8 %; HEMOGLOBIN Ao 81.4 %; HEMOGLOBIN LA1C 2.8 %; HEMOGLOBIN P3 4.1 %
[2017-02-16 07:42] LABS: HEROIN (6-ACETYLMORPHINE) UR NEG (NEG); OBMETHADONE UR NEG (NEG); PHENCYCLIDINE URINE NEG (NEG)
[2017-02-16 07:43] LABS: BATH SALTS (MDPV) UR NEG (NEG); ECSTASY (MDMA) UR NEG (NEG); GABAPENTIN UR NEG (NEG); K2 SPICE UR NEG (NEG)
[2017-02-16 07:44] LABS: HYDROMORPHONE U NEG (NEG)
== END 2017-02-12 17:22 | disposition left against medical advice (07) | DRG 683 ==
LOC: NEPC 08:55 → NEDA 11:33 → OBSVTOIN 12:03 → N04A 15:13
PROVIDERS: ADMIT Family Medicine; ATTEND Family Medicine
DX: N17.9 Acute kidney failure, unspecified (principal); M62.82 Rhabdomyolysis; E87.2 Acidosis; Z78.1 Physical restraint status; E11.9 Type 2 diabetes mellitus without complications; D72.829 Elevated white blood cell count, unspecified; Y90.0 Blood alcohol level of less than 20 mg/100 ml; F17.210 Nicotine dependence, cigarettes, uncomplicated; Z79.84 Long term (current) use of oral hypoglycemic drugs; F20.9 Schizophrenia, unspecified; F31.9 Bipolar disorder, unspecified; E86.0 Dehydration; R00.0 Tachycardia, unspecified; F19.159 Other psychoactive substance abuse with psychoactive substance-induced psychotic disorder, unspecified; F79 Unspecified intellectual disabilities
CPT/HCPCS: 71010; 80048; 80053; 80307; 81001; 82550; 82552; 82570; 82948; 83036; 83605; 83735; 84100; 84300; 84484; 85025; 85027; 85610; 85730; 93005; 96360; G0481; J1815; J2060; J7030

== ENCOUNTER 2017-03-13 08:36 | Inpatient (IN) | payer OTHER ==
[~2017-03-13] VITALS: Ht 175.3 cm; Wt 74.0 kg
[2017-03-13 08:47] VITALS: BP 146/74; PULSE 74; RESP 16; TEMP 98.7; O2SAT 99
[2017-03-13] MEDS ORDERED: METF500T PO (08:51)
--- NOTE | 2017-03-13 09:47 | PD ---
HPI Chief Complaint: Psychiatric Symptoms Time Seen by Provider: 09:04 Travel History International Travel<30 days: No Contact w/Intl Traveler<30days: No Traveled to known affect area: No History of Present Illness HPI 36-year-old man with a history of schizophrenia presents emergency department stating "I need to be Martinez acted". He was placed under Martinez act by law enforcement. He states he needs to be back on his medications. States that he' s been sick "a little bit" as well as "real tired". Denies any other recent illness or injury. No other complaints. History Past Medical History Narrative Medical Schizophrenia, bipolar disorder Social History Alcohol Use: Yes (occ) Tobacco Use: Yes (/2 ppd) Allergies-Medications (Allergen,Severity, Reaction): Coded Allergies: No Known Allergies (Verified , 10/19/16) Reported Meds & Prescriptions Reported Meds & Active Scripts Active Reported Metformin (Metformin HCl) 500 Mg Tab 500 Mg PO BIDPC Review of Systems Except as stated in HPI: all other systems reviewed are Neg Physical Exam Narrative GENERAL: 36-year-old man, no acute distress. SKIN: Focused skin assessment warm/dry. HEAD: Atraumatic. Normocephalic. EYES: Pupils equal and round. No scleral icterus. No injection or drainage. ENT: No nasal bleeding or discharge. Mucous membranes pink and moist. NECK: Trachea midline. No JVD. CARDIOVASCULAR: Regular rate and rhythm. No murmur appreciated. RESPIRATORY: No accessory muscle use. Clear to auscultation. Breath sounds equal bilaterally. GASTROINTESTINAL: Abdomen soft, non-tender, nondistended. Hepatic and splenic margins not palpable. MUSCULOSKELETAL: No obvious deformities. No clubbing. No cyanosis. No edema. NEUROLOGICAL: Awake and alert. No obvious cranial nerve deficits. Motor grossly within normal limits. Normal speech. PSYCHIATRIC: Appropriate mood and affect; insight and judgment normal. Data Data Last Documented VS Vital Signs Date Time Temp Pulse Resp B/P (MAP) Pulse Ox O2 Delivery O2 Flow Rate FiO2 03/13/17 08:47 98.7 74 16 146/74 (98) 99 Room Air Orders Orders Psych Screen (03/13/17 09:12) MDM Medical Decision Making Medical Screen Exam Complete: Yes Emergency Medical Condition: Yes Interpretation(s) Blood glucose little bit elevated Differential Diagnosis Mental health problems, adjustment reaction, schizophrenia, lingering, other Narrative Course 36-year-old man, presents emergency department complaining that he needs to be Martinez acted to get back on his medications. He has no other somatic complaints. Reviewed recent labs as a little bit of dehydration and elevated blood sugar. Blood sugars little bit elevated today. Patient medically clear for psychiatric evaluation. Will need blood work psychiatry decide to admit him. Otherwise outpatient follow-up for psychiatry. Keon Gamino MD Mar 13, 2017 09:47
[2017-03-13 09:57] VITALS: BP 159/82; PULSE 90; RESP 20; TEMP 97.8; O2SAT 100
[2017-03-13] MEDS ORDERED: diphenhydrAMINE HCL 50 MG CAP PO PRN (14:00)
[2017-03-13] MEDS ORDERED: ALUMINUM/MAGNESIUM/SIMETH 30 ML CUP PO PRN (14:00)
[2017-03-13] MEDS ORDERED: LORazepam 2 MG/ML VIAL IM PRN (14:00)
[2017-03-13] MEDS ORDERED: diphenhydrAMINE HCL 50 MG/ML VIAL IM PRN (14:00)
[2017-03-13] MEDS ORDERED: LORazepam 1 MG TAB PO PRN (14:00)
[2017-03-13] MEDS ORDERED: MAGNESIUM HYDROXIDE SUSP 30 ML CUP PO PRN (14:00)
[2017-03-13] MEDS ORDERED: ACETAMINOPHEN 325 MG TAB PO PRN (14:00)
--- NOTE | 2017-03-13 14:02 | HHI.HP ---
Provisional Diagnosis Admission Date [place]. schizophrenia Certification of Person's Competence To Provide Express and Informed Consent I have personally examined Jovan Cristina , a person being served at [facility] on, Mar 13, 2017 13:52. Express and informed consent means consent voluntarily given in writing, by a competent person, after sufficient explanation and disclosure of the subject matter involved to enable the person to make a knowing and willful decision without any element of force, fraud, deceit, duress, or other form of constraint or coercion. This person is 18 years of age or older, is not now known to be incompetent to consent to treatment with a guardian advocate, and does not have a health care surrogate or proxy currently making medical treatment decisions. I have found this person to be one of the following: [x] Competent to provide express and informed consent, as defined above, for voluntary admission to this facility and is competent to provide express and informed consent for treatment. He/she has the consistent capacity to make well reasoned, willful, and knowing decisions concerning his or her medical or mental health treatment. The person fully and consistently understands the purpose of the admission for examination/placement and is fully capable of personally exercising all rights [place] Incompetent to provide express and informed consent to voluntary admission, and this is incompetent to provide express and informed consent to treatment. The person must be transferred to involuntary status and a petition for a guardian advocate filed with the Circuit Court. [] Refusing to provide express and informed consent to voluntary admission but is competent to provide express and informed consent for treatment. The person must be discharged or transferred to involuntary status. Form shall be completed within 24 hours of a person's arrival at the receiving facility and filed in the clinical record of each person: 1. Admitted on a voluntary basis 2. Permitted to provide express and informed consent to his/her own treatment 3. Allowed to transfer from involuntary to voluntary status 4. Prior to permitting a person to consent to his or her own treatment after having been previously found incompetent to consent to treatment. History of Present Illness Capacity: Has Capacity HPI 36-year-old male presents stating "I need to be Martinez acted". The patient describes a multiyear history of schizophrenia and bipolar disorder. He appears to be schizophrenic and this physician has treated him with the schizophrenia diagnosis in the past. He presents now with a history of being off his antipsychotic medicines for multiple months. He has been living with a girlfriend but is feeling paranoid and does not wish to return to her. He feels he is being persecuted by people in general in the public but he is unable to provide a plan or more information as to how he is being persecuted. He does feel he is being watched by others. He also describes auditory hallucinations. These hallucinations are critical of him. He therefore has suicidal ideation from time to time. He is unsure as to his last thought of suicide but he is unable to contract for safety. He would like to be placed back on his antipsychotic medicine although he does not remember its name. He has been treated at [facility] in the past, but again can't recall the last time he was seen there or why he stopped going. He denies the use of any alcohol or drugs and his toxicology screen is negative. Review of Systems Psychiatric: COMPLAINS OF: Anxiety Except as stated in HPI: all other systems reviewed are Neg Past Psych History Psychological trauma history Unknown for psychological trauma. Patient has been treated for schizophrenia in the past. Violence risk - others (6 mos) Moderate Violence risk - self (6 mos) High Substance Abuse History Drugs/Alcohol past 12 months Denied and toxicology screen negative. Past Family Social History Coded Allergies: No Known Allergies (Verified , 10/19/16) Reported Medications Metformin (Metformin) 500 Mg Tab, 500 MG PO BIDPC for Blood Sugar Management, TAB 0 Refills 03/13/17 Discontinued Scripts Lorazepam (Ativan) 0.5 Mg Tab, 0.5 MG PO every 12 hours Y for ANXIETY AND/OR AGITATION, #60 TAB 0 Refills Prov:Awais Guajardo MD 10/20/16 Olanzapine (Zyprexa) 5 Mg Tab, 5 MG PO BID, #60 TAB 0 Refills Prov:Awais Guajardo MD 10/20/16 Metformin (Metformin) 1,000 Mg Tab, 1000 MG PO BIDPC for Blood Sugar Management , #60 TAB 0 Refills With meals Prov:Keon Gamino MD 10/17/16 Blood Glucose Monitoring Suppl (Accu-Chek Cyndi Connect W/Device) 1 Kit Kit, 1 KIT .ROUTE DIRECTED for Blood Sugar Management, #1 KIT 0 Refills Prov:Holli Shirley MD 08/10/16 Family Psych History Positive for mood and anxiety disorders. Social History Patient reportedly has been living with a girlfriend but is now homeless. Denies the use of alcohol or drugs. Unemployed. Minimal family support. Does receive Medicaid. Patient's Strengths (min. 2) Verbal and has access to healthcare. Physical Exam GENERAL: SKIN: Warm and dry. HEAD: Normocephalic. EYES: No scleral icterus. No injection or drainage. NECK: Supple, trachea midline. No JVD or lymphadenopathy. CARDIOVASCULAR: Regular rate and rhythm without murmurs, gallops, or rubs. RESPIRATORY: Breath sounds equal bilaterally. No accessory muscle use. GASTROINTESTINAL: Abdomen soft, non-tender, nondistended. MUSCULOSKELETAL: No cyanosis, or edema. BACK: Nontender without obvious deformity. No CVA tenderness. Vital Signs Vital Signs Date Time Temp Pulse Resp B/P (MAP) Pulse Ox O2 Delivery O2 Flow Rate FiO2 03/13/17 09:57 97.8 90 20 159/82 (107) 100 03/13/17 08:47 Room Air Lab Results Test 03/13/17 10:30 Urine Opiates Screen NEG Urine Barbiturates Screen NEG Urine Amphetamines Screen NEG Urine Benzodiazepines Screen NEG Urine Cocaine Screen NEG Urine Cannabinoids Screen NEG Mental Status Examination Appearance: Disheveled Consciousness: Alert Orientation: x4 Motor Activity: Normal gait Speech: Hesitant Language: Adequate Fund of Knowledge: Adequate Attention and Concentration: Easily Distracted Memory: Unremarkable Mood: Anxious Affect: Flat Thought Process & Associations: Loose associations, Circumstantial, Tangential Thought Content: Bizarre thinking, Ideas of reference, Delusional Hallucination Type: Auditory Delusion Type: Bizarre, Paranoid Suicidal Ideation: Yes Suicidal Plan: Yes Suicidal Intention: No Homicidal Ideation: No Homicidal Plan: No Homicidal Intention: No Insight: Adequate Judgment: Adequate Assessment & Plan Problem List: (1) Paranoid schizophrenia, chronic condition ICD Codes: F20.0 - Paranoid schizophrenia Status: Acute Assessment & Plan Estimated LOS: days. 36-year-old male under a Martinez act for psychotic symptoms and suicidal thinking. Patient is known to this physician from previous inpatient treatment. He is currently complaining of paranoia as well as auditory hallucinations and suicidal ideation. He is unable to verbally contract for safety and he would like to be placed back on medicines. This physician feels he is at high risk for self-harm and therefore he is being admitted and started back on Abilify. This physician has ordered a CBC and comprehensive metabolic panel. This is to rule out any infectious or metabolic process which may be causing or contributing to his psychosis. Furthermore, the patient has type 2 diabetes and is on metformin. He has been non-compliant with his medications and this physician is concerned about his diabetes as well as any exacerbation of his diabetes that is caused by psychotropic medicines. Additionally, this physician has ordered a thyroid-stimulating hormone level, vitamin B-12 level and vitamin D level. This is to determine if any deficiencies in these areas are causing or contributing to his psychosis. He will receive a hospitalist consult to examine him for his history of diabetes. He will also receive an EKG to evaluate his cardiac conduction system prior to significant changes in psychotropic medicine. This physician spoke to the patient's nurse regarding his recent behavior. Finally, the patient will have case management assigned to assist with further information gathering and appropriate disposition planning. Awais Guajardo MD Mar 13, 2017 14:02
[2017-03-13 15:17] VITALS: BP 144/77; PULSE 84; RESP 16; TEMP 98.1; O2SAT 99
--- NOTE | 2017-03-13 15:54 | PD.CONS ---
[facility] By Doctor Awais Guajardo Reason for Consult Medical Management Primary Care Physician Unknown Diagnoses: History of Present Illness This is a pleasant 36 y/o Male with Schizophrenia who came to ER under Martinez act by law enforcement, he stood he was back on his medicines, and that he is been sick for a little bit, as well as tired, admitted to psychiatric unit and asked for Medicine evaluation. seen in [facility] stable. we were asked to see him for Medical management of his Diabetes. Review of Systems Constitutional: DENIES: Fever, Chills, Change in appetite Endocrine: DENIES: Heat/cold intolerance Eyes: DENIES: Blurred vision, Eye pain Except as stated in HPI: all other systems reviewed are Neg Past Family Social History Allergies: Coded Allergies: No Known Allergies (Verified , 10/19/16) Past Medical History Schizophrenia Bipolar disorder DM II. Past Surgical History No past surgical history Reported Medications Reported Meds & Active Scripts Active Reported Metformin (Metformin HCl) 500 Mg Tab 500 Mg PO BIDPC Active Ordered Medications Current Medications Medications (Trade) Dose Ordered Sig/Jaxon Route Start Time Stop Time Status Last Admin (Ativan) 1 mg Q6H PRN PO 03/13/17 14:00 (Ativan Inj) 1 mg Q6H PRN IM 03/13/17 14:00 (Benadryl) 50 mg Q6H PRN PO 03/13/17 14:00 (Benadryl Inj) 50 mg Q6H PRN IM 03/13/17 14:00 (Tylenol) 650 mg Q4H PRN PO 03/13/17 14:00 (Milk Of Magnesia Liq) 30 ml DAILY PRN PO 03/13/17 14:00 (Mag-Al Plus Susp Liq) 30 ml Q6H PRN PO 03/13/17 14:00 (Abilify) 5 mg HS PO 03/13/17 21:00 (Glucophage) 500 mg BIDPC PO 03/13/17 18:00 Family History Father and mother with DM and Hypertension Social History Lives with his girlfriend alcohol abuse yes 3 drinks daily Tobacco dependence one pack per day since he was 12 years of age Marijuana abuse occasional. Physical Exam Vital Signs Vital Signs Date Time Temp Pulse Resp B/P (MAP) Pulse Ox O2 Delivery O2 Flow Rate FiO2 03/13/17 15:17 98.1 84 16 144/77 (99) 99 03/13/17 14:41 03/13/17 09:57 97.8 90 20 159/82 (107) 100 03/13/17 08:47 98.7 74 16 146/74 (98) 99 Room Air Physical Exam GENERAL: alert and oriented no acute distress. SKIN: Focused skin assessment warm/dry. HEAD: Atraumatic. Normocephalic. EYES: Pupils equal and round. No scleral icterus. No injection or drainage. ENT: No nasal bleeding or discharge. Mucous membranes pink and moist. NECK: Trachea midline. No JVD. CARDIOVASCULAR: Regular rate and rhythm. No murmur appreciated. RESPIRATORY: No accessory muscle use. Clear to auscultation. Breath sounds equal bilaterally. GASTROINTESTINAL: Abdomen soft, non-tender, nondistended. Hepatic and splenic margins not palpable. MUSCULOSKELETAL: No obvious deformities. No clubbing. No cyanosis. No edema. NEUROLOGICAL: Awake and alert. No obvious cranial nerve deficits. Motor grossly within normal limits. Normal speech. PSYCHIATRIC: Appropriate mood and affect; insight and judgment normal. Laboratory Laboratory Tests Test 03/13/17 10:30 Urine Opiates Screen NEG Urine Barbiturates Screen NEG Urine Amphetamines Screen NEG Urine Benzodiazepines Screen NEG Urine Cocaine Screen NEG Urine Cannabinoids Screen NEG Imaging No new imaging studies. Assessment and Plan Assessment and Plan 1. Diabetes mellitus II asked for laboratory and following, will continue Metformin from home and sliding scale follow Hemoglobin A1C 2. Schizophrenia and Bipolar disorder. continue psychiatry specialist management Follow laboratory no need for DVT prophylaxis the patient is active at this time walking in the aisle. Code Status Full Code. Discussed Condition With Patient and nurse. Donny Arndt MD Mar 13, 2017 15:54
[2017-03-13] MEDS: metFORMIN HCL 500 MG TAB PO SCH (16:06)
[2017-03-13] MEDS: INSULIN ASPART SUPPLEMENTAL SCALE SQ SCH ×2 (16:17→21:00)
[2017-03-13] MEDS ORDERED: ARIPiprazole 5 MG TAB PO SCH (21:00)
[2017-03-14 05:48] VITALS: BP 135/73; PULSE 90; RESP 16; TEMP 98.2; O2SAT 97
[2017-03-14] MEDS: INSULIN ASPART SUPPLEMENTAL SCALE SQ SCH ×4 (07:26→20:56)
[2017-03-14] MEDS: metFORMIN HCL 500 MG TAB PO SCH (07:27)
--- NOTE | 2017-03-14 09:45 | HHI.PYPN ---
Subjective Remarks Patient seen and examined with nurse. Chart reviewed. I note multiple prior psychiatric consultations in the ED. 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 Case discussed with nursing staff. On my examination today, the patient presents as somewhat irritable. He says that he has come into the hospital because "I've been hearing voices and shit." He is a vague historian and says he has been hearing these voices "for a while." These voices are described as deprecatory, constant, in his head. He cannot describe the quality of the voices in any detail. No depressive or hypomanic/ manic symptoms. No delusions, although he is a little guarded. Says his goal is to "sit in here and get my mind back right." Denies side effects from Abilify. He is agreeable to titration of this agent to antipsychotic doses after discussion of R/B/A. PPH: Reports a history of schizophrenia. Says that he has been scheduled for [facility] follow-[facility] through [facility] but "never got it done." No reported history of suicide attempts. FH: Denies a family history of mental illness. CD: Says that he smokes cannabis occasionally. Denies any other substance use, although I do note that flakka use has been suggested in the past. SH: Says that he had been living with his girlfriend although he has not welcome to return there for unclear reasons. Review of Systems ROS Limitations: Poor Historian Except as stated in HPI: all other systems reviewed are Neg Mental Status Examination Appearance: Disheveled Consciousness: Alert Orientation: x4 Motor Activity: Normal gait, Other (no motor abnormalities noted) Speech: Unremarkable Language: Adequate Fund of Knowledge: Adequate Attention and Concentration: Adequate Memory: Unremarkable (grossly intact on clinical exam) Mood: Irritable Affect: Other (consistent with stated mood) Thought Process & Associations: Logical, Linear Thought Content: Appropriate, Delusional Hallucination Type: Auditory (deprecatory) Delusion Type: Other (guarded, possibly some degree of paranoia) Suicidal Ideation: No Suicidal Plan: No Suicidal Intention: No Homicidal Ideation: No Homicidal Plan: No Homicidal Intention: No Insight: Poor Judgment: Poor Results Labs Labs reviewed. Hyponatremia noted. Low vitamin D noted. Item Value Date Time White Blood Count 8.5 TH/MM3 03/14/17 1016 Hemoglobin 14.4 GM/DL 03/14/17 1016 Platelet Count 255 TH/MM3 03/14/17 1016 Sodium Level 134 MEQ/L L 03/14/17 1047 Potassium Level 4.1 MEQ/L 03/14/17 1047 Chloride Level 99 MEQ/L 03/14/17 1047 Carbon Dioxide Level 25.2 MEQ/L 03/14/17 1047 Blood Urea Nitrogen 12 MG/DL 03/14/17 1047 Creatinine 0.91 MG/DL 03/14/17 1047 Aspartate Amino Transf (AST/SGOT) 17 U/L 03/14/17 1047 Alanine Aminotransferase (ALT/SGPT) 19 U/L 03/14/17 1047 Alkaline Phosphatase 73 U/L 03/14/17 1047 Vitamin B12 Level 430 PG/ML 03/14/17 1047 25-Hydroxy Vitamin D Total 9.7 ng/ML L 03/14/17 1047 Thyroid Stimulating Hormone 3rd Gen 0.534 uIU/ML 03/14/17 1047 Urine Opiates Screen NEG 03/13/17 1030 Urine Barbiturates Screen NEG 03/13/17 1030 Urine Amphetamines Screen NEG 03/13/17 1030 Urine Benzodiazepines Screen NEG 03/13/17 1030 Urine Cocaine Screen NEG 03/13/17 1030 Urine Cannabinoids Screen NEG 03/13/17 1030 Urine Random Creatinine 181 MG/DL 03/13/17 1030 Urine Microalbumin/Creatinine Ratio 32 MG/G CRE H 03/13/17 1030 EKG from 02/11 reveals sinus tach with QTc 413ms. Vitals/IOs Vital Signs Date Time Temp Pulse Resp B/P (MAP) Pulse Ox O2 Delivery O2 Flow Rate FiO2 03/14/17 05:48 98.2 90 16 135/73 (93) 97 03/13/17 08:47 Room Air Assessment & Plan Problem List: (1) Other psychotic disorder not due to a substance or known physiological condition ICD Codes: F28 - Other psychotic disorder not due to a substance or known physiological condition Assessment & Plan: Rule out drug-induced psychosis. Rule-out malingering as reported AH have several features of malingered AH. Assessment & Plan Initiate petition for involuntary psychiatric hospitalization. Consult for second opinion. Patient retains capacity to consent for medications. Titrate Abilify to 15 mg daily to target reported psychotic symptoms. Vitamin D replacement. Extended urine toxicology screening. Diabetic diet. Hospitalist input noted and appreciated. Continue to monitor on the high acuity unit. Continue other medications and care as ordered. Justification for Cont. Inpt. Med changes. 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 Discharge Planning Pending stabilization. ELOS: 3-5 days. Request HC Surrog/Guard Advoc?: No Foster Gill MD Mar 14, 2017 09:45
[2017-03-14 11:52] LABS: AUTOMATED NEUTROPHIL # 5.8 TH/MM3 (1.8-7.7); BASOPHIL % 0.5 % (0.0-2.0); EOSINOPHIL % 0.3 % (0.0-4.0); HEMATOCRIT 44.4 % (39.0-51.0); HEMOGLOBIN 14.4 GM/DL (13.0-17.0); LYMPHOCYTE # 1.9 TH/MM3 (1.0-4.8); MEAN CELL VOLUME 89.8 FL (80.0-100.0); MEAN CORPUSCULAR HEMOGLOBIN 29.2 PG (27.0-34.0); MEAN CORPUSCULAR HGB CONC 32.5 % (32.0-36.0); MEAN PLATELET VOLUME 9.3 FL (7.0-11.0); MONO % 8.8 % (0.0-8.0); MONOCYTE # 0.7 TH/MM3 (0-0.9); NEUT % 68.4 % (16.0-70.0); PLATELET COUNT 255 TH/MM3 (150-450); RED BLOOD COUNT 4.95 MIL/MM3 (4.50-5.90); RED CELL DISTRIBUTION WIDTH 13.4 % (11.6-17.2); WHITE BLOOD COUNT 8.5 TH/MM3 (4.0-11.0)
[2017-03-14 12:01] LABS: ALBUMIN 3.7 GM/DL (3.4-5.0); AST (GOT) 17 U/L (15-37); BICARBONATE 25.2 MEQ/L (21.0-32.0); BLOOD UREA NITROGEN 12 MG/DL (7-18); CALCIUM 9.6 MG/DL (8.5-10.1); CHLORIDE 99 MEQ/L (98-107); CREATININE 0.91 MG/DL (0.60-1.30); GLOMERULAR FILTRATION RATE 114 ML/MIN (>89); GLUCOSE,RANDOM 245 MG/DL (74-106); SODIUM (NA) 134 MEQ/L (136-145)
[2017-03-14 12:02] LABS: ALT (GPT) 19 U/L (12-78); CHOLESTEROL 160 MG/DL (120-200)
[2017-03-14 12:28] LABS: ALKALINE PHOSPHATASE 73 U/L (45-117); CHOLESTEROL/ HDL RATIO 1.78 RATIO; HDL CHOLESTEROL 89.4 MG/DL (40.0-60.0); LDL CHOLESTEROL 52 MG/DL (0-99); TOTAL PROTEIN 7.2 GM/DL (6.4-8.2); TRIGLYCERIDES 94 MG/DL (42-150)
--- NOTE | 2017-03-14 12:51 | PD.PSY.CON ---
Provisional Diagnosis Admission Date Mar 13, 2017 at 13:50 [place] schizophrenia History of Present Illness Service Psychiatry Consult Requested By Dr. Jairo Lua Reason for Consult Second opinion Primary Care Physician Unknown HPI 36-year-old male presents stating "I need to be Martinez acted". The patient describes a multiyear history of schizophrenia and bipolar disorder. He appears to be schizophrenic and this physician has treated him with the schizophrenia diagnosis in the past. He presents now with a history of being off his antipsychotic medicines for multiple months. He has been living with a girlfriend but is feeling paranoid and does not wish to return to her. He feels he is being persecuted by people in general in the public but he is unable to provide a plan or more information as to how he is being persecuted. He does feel he is being watched by others. He also describes auditory hallucinations. These hallucinations are critical of him. He therefore has suicidal ideation from time to time. He is unsure as to his last thought of suicide but he is unable to contract for safety. He would like to be placed back on his antipsychotic medicine although he does not remember its name. He has been treated at [facility] in the past, but again can't recall the last time he was seen there or why he stopped going. He denies the use of any alcohol or drugs and his toxicology screen is negative. The patient is a 36-year-old man, domiciled, single, with psychiatric history of schizophrenia, intellectual disability??, polysubstance dependence, no previous psychiatric hospitalizations, multiple point encounters on the Martinez act due to drug related issues, is known by the psychiatric service , no previous suicidal attempts, no significant medical history, who presented to the ED under the Martinez act after the paranoia. Patient reports that he has been feeling better today. However he does report known commanding type auditory hallucinations of voices and making derogatory comments about him. Asked reports episodic paranoia of people wanting to hurt him. He denies suicidal and homicidal ideation. He is oriented 3. Review of Systems Constitutional: DENIES: Diaphoretic episodes, Fatigue, Fever, Weight gain, Weight loss, Chills, Dizziness, Change in appetite, Night Sweats Endocrine: DENIES: Heat/cold intolerance, Polydipsia, Polyuria, Polyphagia Eyes: DENIES: Blurred vision, Diplopia, Eye inflammation, Eye pain, Vision loss , Photosensitivity, Double Vision Ears, nose, mouth, throat: DENIES: Tinnitus, Hearing loss, Vertigo, Nasal discharge, Oral lesions, Throat pain, Hoarseness, Ear Pain, Running Nose, Epistaxis, Sinus Pain, Toothache, Odynophagia Respiratory: DENIES: Apneas, Cough, Snoring, Wheezing, Hemoptysis, Sputum production, Shortness of breath Cardiovascular: DENIES: Chest pain, Palpitations, Syncope, Dyspnea on Exertion , PND, Lower Extremity Edema, Orthopnea, Claudication Genitourinary: DENIES: Sexual dysfunction, Urinary frequency, Urinary incontinence, Urgency, Hematuria, Dysuria, Nocturia, Penile Discharge, Testicular Pain, Testicular Swelling Musculoskeletal: DENIES: Joint pain, Muscle aches, Stiffness, Joint Swelling, Back pain, Neck pain Integumentary: DENIES: Abnormal pigmentation, Nail changes, Pruritus, Rash Hematologic/lymphatic: DENIES: Bruising, Lymphadenopathy Immunologic/allergic: DENIES: Eczema, Urticaria Neurologic: DENIES: Abnormal gait, Headache, Localized weakness, Paresthesias, Seizures, Speech Problems, Tremor, Poor Balance Psychiatric: DENIES: Anxiety, Confusion, Mood changes, Depression, Hallucinations, Agitation, Suicidal Ideation, Homicidal Ideation, Delusions Past Family Social History Coded Allergies: No Known Allergies (Verified , 10/19/16) Reported Medications Metformin (Metformin) 500 Mg Tab, 500 MG PO BIDPC for Blood Sugar Management, TAB 0 Refills 03/13/17 Discontinued Scripts Lorazepam (Ativan) 0.5 Mg Tab, 0.5 MG PO every 12 hours Y for ANXIETY AND/OR AGITATION, #60 TAB 0 Refills Prov:Awais Guajardo MD 10/20/16 Olanzapine (Zyprexa) 5 Mg Tab, 5 MG PO BID, #60 TAB 0 Refills Prov:Awais Guajardo MD 10/20/16 Metformin (Metformin) 1,000 Mg Tab, 1000 MG PO BIDPC for Blood Sugar Management , #60 TAB 0 Refills With meals Prov:Keon Gamino MD 10/17/16 Blood Glucose Monitoring Suppl (Accu-Chek Cyndi Connect W/Device) 1 Kit Kit, 1 KIT .ROUTE DIRECTED for Blood Sugar Management, #1 KIT 0 Refills Prov:Holli Shirley MD 08/10/16 Current Medications Medications (Trade) Dose Ordered Sig/Jaxon Route Start Time Stop Time Status Last Admin (Ativan) 1 mg Q6H PRN PO 03/13/17 14:00 (Ativan Inj) 1 mg Q6H PRN IM 03/13/17 14:00 (Benadryl) 50 mg Q6H PRN PO 03/13/17 14:00 (Benadryl Inj) 50 mg Q6H PRN IM 03/13/17 14:00 (Tylenol) 650 mg Q4H PRN PO 03/13/17 14:00 (Milk Of Magnesia Liq) 30 ml DAILY PRN PO 03/13/17 14:00 (Mag-Al Plus Susp Liq) 30 ml Q6H PRN PO 03/13/17 14:00 (Glucophage) 500 mg BIDPC PO 03/13/17 18:00 03/14/17 07:27 (NovoLOG SUPPLEMENTAL SCALE) 1 ACHS SLIDING SCALE SQ 03/13/17 17:00 03/14/17 11:09 (Abilify) 15 mg DAILY PO 03/15/17 09:00 Patient's Strengths (min. 2) Verbal and has access to healthcare. Physical Exam Vital Signs Vital Signs Date Time Temp Pulse Resp B/P (MAP) Pulse Ox O2 Delivery O2 Flow Rate FiO2 03/14/17 05:48 98.2 90 16 135/73 (93) 97 03/13/17 08:47 Room Air Lab Results Test 03/14/17 10:16 03/14/17 10:47 White Blood Count 8.5 TH/MM3 Red Blood Count 4.95 MIL/MM3 Hemoglobin 14.4 GM/DL Hematocrit 44.4 % Mean Corpuscular Volume 89.8 FL Mean Corpuscular Hemoglobin 29.2 PG Mean Corpuscular Hemoglobin Concent 32.5 % Red Cell Distribution Width 13.4 % Platelet Count 255 TH/MM3 Mean Platelet Volume 9.3 FL Neutrophils (%) (Auto) 68.4 % Lymphocytes (%) (Auto) 22.0 % Monocytes (%) (Auto) 8.8 % Eosinophils (%) (Auto) 0.3 % Basophils (%) (Auto) 0.5 % Neutrophils # (Auto) 5.8 TH/MM3 Lymphocytes # (Auto) 1.9 TH/MM3 Monocytes # (Auto) 0.7 TH/MM3 Eosinophils # (Auto) 0.0 TH/MM3 Basophils # (Auto) 0.0 TH/MM3 CBC Comment DIFF FINAL Differential Comment Blood Urea Nitrogen 12 MG/DL Creatinine 0.91 MG/DL Random Glucose 245 MG/DL Total Protein 7.2 GM/DL Albumin 3.7 GM/DL Calcium Level 9.6 MG/DL Alkaline Phosphatase 73 U/L Aspartate Amino Transf (AST/SGOT) 17 U/L Alanine Aminotransferase (ALT/SGPT) 19 U/L Total Bilirubin 1.0 MG/DL Sodium Level 134 MEQ/L Potassium Level 4.1 MEQ/L Chloride Level 99 MEQ/L Carbon Dioxide Level 25.2 MEQ/L Anion Gap 10 MEQ/L Estimat Glomerular Filtration Rate 114 ML/MIN Triglycerides Level 94 MG/DL Cholesterol Level 160 MG/DL LDL Cholesterol 52 MG/DL HDL Cholesterol 89.4 MG/DL Cholesterol/HDL Ratio 1.78 RATIO Vitamin B12 Level 430 PG/ML 25-Hydroxy Vitamin D Total 9.7 ng/ML Thyroid Stimulating Hormone 3rd Gen 0.534 uIU/ML Mental Status Examination Appearance: Disheveled Consciousness: Alert Orientation: x4 Motor Activity: Normal gait Speech: Hesitant Language: Adequate Fund of Knowledge: Adequate Attention and Concentration: Easily Distracted Memory: Unremarkable Mood: Anxious Affect: Flat Thought Process & Associations: Loose associations, Circumstantial, Tangential Thought Content: Bizarre thinking, Ideas of reference, Delusional Hallucination Type: Auditory Delusion Type: Bizarre, Paranoid Suicidal Ideation: Yes Suicidal Plan: Yes Suicidal Intention: No Homicidal Ideation: No Homicidal Plan: No Homicidal Intention: No Insight: Adequate Judgment: Adequate Assessment & Plan Problem List: (1) Paranoid schizophrenia, chronic condition ICD Codes: F20.0 - Paranoid schizophrenia Status: Acute Assessment & Plan: I have seen and examined the patient, documentation, this is a patient that I know from prior encounters, and I agree and concur Dr. Gill assessment and plan. Consult appreciated. Assessment & Plan Estimated LOS: Edilberto Amaral MD Mar 14, 2017 12:51
[2017-03-14] MEDS: ARIPiprazole 15 MG TAB PO SCH (15:19)
[2017-03-14] MEDS: INSULIN HUMAN REGULAR 1,000 UNITS/10 ML VIAL SQ SCH (16:16)
--- NOTE | 2017-03-14 16:17 | HHI.PR ---
Subjective Remarks This is a pleasant 36 y/o Male with Schizophrenia who came to ER under Martinez act by law enforcement, he stood he was back on his medicines, and that he is been sick for a little bit, as well as tired, admitted to psychiatric unit and asked for Medicine evaluation. seen in [facility]. we were asked to see him for Medical management of his Diabetes. 03/14: stable changes performed to his regimen today, will continue sliding scale and giving 5 units pre meal. continue metformin. no nausea, vomit or diarrhea. Objective Vital Signs Date Time Temp Pulse Resp B/P (MAP) Pulse Ox O2 Delivery O2 Flow Rate FiO2 03/14/17 05:48 98.2 90 16 135/73 (93) 97 Result Diagram: 03/14/17 1016 03/14/17 1047 Imaging No imaging studies. Procedures None Other Results Laboratory Tests Test 03/13/17 10:30 03/14/17 10:16 03/14/17 10:47 Urine Random Creatinine 181 MG/DL Urine Microalbumin/Creatinine Ratio 32 MG/G CRE Urine Opiates Screen NEG Urine Barbiturates Screen NEG Urine Amphetamines Screen NEG Urine Benzodiazepines Screen NEG Urine Cocaine Screen NEG Urine Cannabinoids Screen NEG White Blood Count 8.5 TH/MM3 Red Blood Count 4.95 MIL/MM3 Hemoglobin 14.4 GM/DL Hematocrit 44.4 % Mean Corpuscular Volume 89.8 FL Mean Corpuscular Hemoglobin 29.2 PG Mean Corpuscular Hemoglobin Concent 32.5 % Red Cell Distribution Width 13.4 % Platelet Count 255 TH/MM3 Mean Platelet Volume 9.3 FL Neutrophils (%) (Auto) 68.4 % Lymphocytes (%) (Auto) 22.0 % Monocytes (%) (Auto) 8.8 % Eosinophils (%) (Auto) 0.3 % Basophils (%) (Auto) 0.5 % Neutrophils # (Auto) 5.8 TH/MM3 Lymphocytes # (Auto) 1.9 TH/MM3 Monocytes # (Auto) 0.7 TH/MM3 Eosinophils # (Auto) 0.0 TH/MM3 Basophils # (Auto) 0.0 TH/MM3 CBC Comment DIFF FINAL Differential Comment Blood Urea Nitrogen 12 MG/DL Creatinine 0.91 MG/DL Random Glucose 245 MG/DL Total Protein 7.2 GM/DL Albumin 3.7 GM/DL Calcium Level 9.6 MG/DL Alkaline Phosphatase 73 U/L Aspartate Amino Transf (AST/SGOT) 17 U/L Alanine Aminotransferase (ALT/SGPT) 19 U/L Total Bilirubin 1.0 MG/DL Sodium Level 134 MEQ/L Potassium Level 4.1 MEQ/L Chloride Level 99 MEQ/L Carbon Dioxide Level 25.2 MEQ/L Anion Gap 10 MEQ/L Estimat Glomerular Filtration Rate 114 ML/MIN Triglycerides Level 94 MG/DL Cholesterol Level 160 MG/DL LDL Cholesterol 52 MG/DL HDL Cholesterol 89.4 MG/DL Cholesterol/HDL Ratio 1.78 RATIO Vitamin B12 Level 430 PG/ML 25-Hydroxy Vitamin D Total 9.7 ng/ML Thyroid Stimulating Hormone 3rd Gen 0.534 uIU/ML Objective Remarks GENERAL: alert and oriented no acute distress. SKIN: Focused skin assessment warm/dry. HEAD: Atraumatic. Normocephalic. EYES: Pupils equal and round. No scleral icterus. No injection or drainage. ENT: No nasal bleeding or discharge. Mucous membranes pink and moist. NECK: Trachea midline. No JVD. CARDIOVASCULAR: Regular rate and rhythm. No murmur appreciated. RESPIRATORY: No accessory muscle use. Clear to auscultation. Breath sounds equal bilaterally. GASTROINTESTINAL: Abdomen soft, non-tender, nondistended. Hepatic and splenic margins not palpable. MUSCULOSKELETAL: No obvious deformities. No clubbing. No cyanosis. No edema. NEUROLOGICAL: Awake and alert. No obvious cranial nerve deficits. Motor grossly within normal limits. Normal speech. PSYCHIATRIC: Appropriate mood and affect; insight and judgment normal. Medications and IVs Current Medications Medications (Trade) Dose Ordered Sig/Jaxon Route Start Time Stop Time Status Last Admin (Ativan) 1 mg Q6H PRN PO 03/13/17 14:00 (Ativan Inj) 1 mg Q6H PRN IM 03/13/17 14:00 (Benadryl) 50 mg Q6H PRN PO 03/13/17 14:00 (Benadryl Inj) 50 mg Q6H PRN IM 03/13/17 14:00 (Tylenol) 650 mg Q4H PRN PO 03/13/17 14:00 (Milk Of Magnesia Liq) 30 ml DAILY PRN PO 03/13/17 14:00 (Mag-Al Plus Susp Liq) 30 ml Q6H PRN PO 03/13/17 14:00 (NovoLOG SUPPLEMENTAL SCALE) 1 ACHS SLIDING SCALE SQ 03/13/17 17:00 03/14/17 11:09 (Abilify) 15 mg DAILY PO 03/14/17 15:00 03/14/17 15:19 (Drisdol) 50,000 units Q7D PO 03/14/17 21:00 (NovoLIN R INJ) 5 units TIDAC SQ 03/14/17 17:00 (Glucophage) 850 mg BIDPC PO 03/14/17 18:00 A/P Assessment and Plan 1. Diabetes mellitus II asked for laboratory and following, will continue Metformin from home. add sliding scale continue Regular insulin premeal with 5 units. hemoglobin A1C. 8.6 2. Schizophrenia and Bipolar disorder. continue psychiatry specialist management Follow laboratory no need for DVT prophylaxis the patient is active at this time walking in the aisle. Code Status Full Code. Discharge Planning as per Attending physician. Donny Arndt MD Mar 14, 2017 16:17
[2017-03-14] MEDS: metFORMIN HCL 850 MG TAB PO SCH (16:36)
[2017-03-14 16:40] LABS: HEMOGLOBIN A1C 8.6 % (4.3-6.0)
[2017-03-14 17:43] VITALS: BP 124/76; PULSE 71; RESP 18; TEMP 98; O2SAT 98
[2017-03-14] MEDS: ERGOCALCIFEROL (VIT D2) 50,000 UNIT CAP PO SCH ×3 (20:18→21:00)
[2017-03-15 06:05] VITALS: BP 129/82; PULSE 79; RESP 16; TEMP 98.1; O2SAT 98
[2017-03-15] MEDS: INSULIN ASPART SUPPLEMENTAL SCALE SQ SCH ×2 (07:57→11:36)
[2017-03-15] MEDS: INSULIN HUMAN REGULAR 1,000 UNITS/10 ML VIAL SQ SCH ×3 (08:00→17:00)
[2017-03-15] MEDS ORDERED: ARIPiprazole 15 MG TAB PO SCH (09:00)
[2017-03-15] MEDS: ARIPiprazole 15 MG TAB PO SCH (09:00)
[2017-03-15] MEDS: metFORMIN HCL 850 MG TAB PO SCH ×2 (09:23→17:32)
--- NOTE | 2017-03-15 11:04 | HHI.PYPN ---
Subjective Chief Complaint: Psychosis Remarks Patient seen and examined with nurse. Chart reviewed. Case discussed with counselor and nurse. Per nursing staff, the patient is somewhat suspicious of medications, particularly those unfamiliar to him such as the vitamin D supplement. He also was reportedly leery of his sliding-scale insulin. He did accept his Abilify. Nursing noted that the patient was having an animated conversation on the phone, screaming expletives, although it was unclear who was on the other end. On my exam today, patient is fidgety. He does not describe any subjective sense of restlessness, such as is seen in akathisia. He is guarded. Thought process generally linear, although the patient does make some bizarre statements, such as "BBQ or meldoo," which he is unable to explain and which is indecipherable in context. He is discharge focused and insists that his AH are gone now, reporting "I'm straight now." He insists that he is ready to go home and will be staying with his mother now. Denies SI/ HI, but it is unclear whether he is reliable to contract for safety in his present state. No side effects from medications. No physical complaints. With patient's permission, I endeavored to reach out to his mother Jane Cristina at [phone] and at [phone] as well as at the number listed in the EMR. I left generic requesting call back at the first two and the third was non- functional. Review of Systems ROS Limitations: Psychotic, Poor Historian Except as stated in HPI: all other systems reviewed are Neg Mental Status Examination Appearance: Other (Grooming improved.) Consciousness: Alert Orientation: x4 Motor Activity: Normal gait, Other (Fidgety but no other abnormal motor movements noted.) Speech: Unremarkable Language: Adequate, Neologism Fund of Knowledge: Adequate Attention and Concentration: Adequate Memory: Unremarkable (intact on clinical exam) Mood: Anxious Affect: Anxious Thought Process & Associations: Other (perseverative on discharge) Thought Content: Delusional Hallucination Type: None (Denies AVH) Delusion Type: Other (guarded, possibly some degree of paranoia) Suicidal Ideation: No (unclear whether pt is reliable to contract for safety.) Suicidal Plan: No Suicidal Intention: No Homicidal Ideation: No Homicidal Plan: No Homicidal Intention: No Insight: Poor Judgment: Poor Results Labs Labs reviewed. Extended toxicology pending. Sodium level ordered this morning pending. 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 Patient likely would be a good candidate for Maintena, but he needs a longer oral trial to assure good tolerability before this agent can be considered. Patient's fidgetiness may be related to anxiety given his focus on discharge, but it is important to monitor the patient further on the unit to make sure this restlessness is not akathisia, more common with Abilify than with other atypicals, as akathisia has some associations with increased risk for violent behavior. Follow up extended urine toxicology and sodium level. Continue to monitor on inpatient unit. Continue other meds and care as ordered. Justification for Cont. Inpt. Monitoring for complicating conditions. Med changes. Risk for decompensation. Discharge Planning Possible discharge tomorrow so long as patient passes an uneventful night. Request HC Surrog/Guard Advoc?: No Foster Gill MD Mar 15, 2017 11:03
[2017-03-15] MEDS ORDERED: ARIPiprazole 5 MG TAB PO ONE (12:05)
--- NOTE | 2017-03-15 12:30 | HHI.PR ---
Subjective Remarks This is a pleasant 36 y/o Male with Schizophrenia who came to ER under Martinez act by law enforcement, he stood he was back on his medicines, and that he is been sick for a little bit, as well as tired, admitted to psychiatric unit and asked for Medicine evaluation. seen in [facility]. we were asked to see him for Medical management of his Diabetes. 03/14: stable changes performed to his regimen today, will continue sliding scale and giving 5 units pre meal. continue metformin. 03/15: Stable seen in his bedroom in the presence of nurse Miss Landeros, the patient states he likes his blood sugar to be around 200 and refused sometimes the dosages at this time stable will continue sliding scale and 5 units os regular insulin at discharge, continue his home medicines at discharge. Objective Vital Signs Date Time Temp Pulse Resp B/P (MAP) Pulse Ox O2 Delivery O2 Flow Rate FiO2 03/15/17 06:05 98.1 79 16 129/82 (98) 98 03/14/17 17:43 98.0 71 18 124/76 (92) 98 Result Diagram: 03/14/17 1016 03/14/17 1047 Imaging No Imaging studies. Procedures None Other Results Laboratory Tests Test 03/13/17 10:30 03/14/17 10:16 03/14/17 10:47 Urine Random Creatinine 181 MG/DL Urine Microalbumin/Creatinine Ratio 32 MG/G CRE Urine Opiates Screen NEG Urine Barbiturates Screen NEG Urine Amphetamines Screen NEG Urine Benzodiazepines Screen NEG Urine Cocaine Screen NEG Urine Cannabinoids Screen NEG White Blood Count 8.5 TH/MM3 Red Blood Count 4.95 MIL/MM3 Hemoglobin 14.4 GM/DL Hematocrit 44.4 % Mean Corpuscular Volume 89.8 FL Mean Corpuscular Hemoglobin 29.2 PG Mean Corpuscular Hemoglobin Concent 32.5 % Red Cell Distribution Width 13.4 % Platelet Count 255 TH/MM3 Mean Platelet Volume 9.3 FL Neutrophils (%) (Auto) 68.4 % Lymphocytes (%) (Auto) 22.0 % Monocytes (%) (Auto) 8.8 % Eosinophils (%) (Auto) 0.3 % Basophils (%) (Auto) 0.5 % Neutrophils # (Auto) 5.8 TH/MM3 Lymphocytes # (Auto) 1.9 TH/MM3 Monocytes # (Auto) 0.7 TH/MM3 Eosinophils # (Auto) 0.0 TH/MM3 Basophils # (Auto) 0.0 TH/MM3 CBC Comment DIFF FINAL Differential Comment Blood Urea Nitrogen 12 MG/DL Creatinine 0.91 MG/DL Random Glucose 245 MG/DL Total Protein 7.2 GM/DL Albumin 3.7 GM/DL Calcium Level 9.6 MG/DL Alkaline Phosphatase 73 U/L Aspartate Amino Transf (AST/SGOT) 17 U/L Alanine Aminotransferase (ALT/SGPT) 19 U/L Total Bilirubin 1.0 MG/DL Sodium Level 134 MEQ/L Potassium Level 4.1 MEQ/L Chloride Level 99 MEQ/L Carbon Dioxide Level 25.2 MEQ/L Anion Gap 10 MEQ/L Estimat Glomerular Filtration Rate 114 ML/MIN Hemoglobin A1c 8.6 % Triglycerides Level 94 MG/DL Cholesterol Level 160 MG/DL LDL Cholesterol 52 MG/DL HDL Cholesterol 89.4 MG/DL Cholesterol/HDL Ratio 1.78 RATIO Vitamin B12 Level 430 PG/ML 25-Hydroxy Vitamin D Total 9.7 ng/ML Thyroid Stimulating Hormone 3rd Gen 0.534 uIU/ML Objective Remarks GENERAL: alert and oriented no acute distress. SKIN: Focused skin assessment warm/dry. HEAD: Atraumatic. Normocephalic. EYES: Pupils equal and round. No scleral icterus. No injection or drainage. ENT: No nasal bleeding or discharge. Mucous membranes pink and moist. NECK: Trachea midline. No JVD. CARDIOVASCULAR: Regular rate and rhythm. No murmur appreciated. RESPIRATORY: No accessory muscle use. Clear to auscultation. Breath sounds equal bilaterally. GASTROINTESTINAL: Abdomen soft, non-tender, nondistended. Hepatic and splenic margins not palpable. MUSCULOSKELETAL: No obvious deformities. No clubbing. No cyanosis. No edema. NEUROLOGICAL: Awake and alert. No obvious cranial nerve deficits. Motor grossly within normal limits. Normal speech. PSYCHIATRIC: Appropriate mood and affect; insight and judgment normal. Medications and IVs Current Medications Medications (Trade) Dose Ordered Sig/Jaxon Route Start Time Stop Time Status Last Admin (Ativan) 1 mg Q6H PRN PO 03/13/17 14:00 (Ativan Inj) 1 mg Q6H PRN IM 03/13/17 14:00 (Benadryl) 50 mg Q6H PRN PO 03/13/17 14:00 (Benadryl Inj) 50 mg Q6H PRN IM 03/13/17 14:00 (Tylenol) 650 mg Q4H PRN PO 03/13/17 14:00 (Milk Of Magnesia Liq) 30 ml DAILY PRN PO 03/13/17 14:00 (Mag-Al Plus Susp Liq) 30 ml Q6H PRN PO 03/13/17 14:00 (Drisdol) 50,000 units Q7D PO 03/14/17 21:00 (NovoLIN R INJ) 5 units TIDAC SQ 03/14/17 17:00 03/15/17 08:00 (Glucophage) 850 mg BIDPC PO 03/14/17 18:00 03/15/17 09:23 (Abilify) 20 mg DAILY PO 03/16/17 09:00 A/P Assessment and Plan 1. Diabetes mellitus II asked for laboratory and following, will continue Metformin from home. add sliding scale continue Regular insulin premeal with 5 units. hemoglobin A1C. 8.6 , as per patient prefer to have his blood sugar around 200 explained why he needs a better control and get his blood sugar around 140 but he is reluctant to this continue his home medicines at discharge and titrate with PCP 2. Schizophrenia and Bipolar disorder. continue psychiatry specialist management seen in his bedroom in the presence of nurse Miss Landeros sign off the case. no need for DVT prophylaxis the patient is active at this time walking in the aisle. Code Status Full Code. Discharge Planning as per Attending physician. Donny Arndt MD Mar 15, 2017 12:30
[2017-03-15 18:05] VITALS: BP 119/71; PULSE 82; RESP 17; TEMP 98.1; O2SAT 98
[2017-03-16 05:34] VITALS: BP 134/87; PULSE 77; RESP 18; TEMP 97.8; O2SAT 96
[2017-03-16] MEDS: metFORMIN HCL 850 MG TAB PO SCH (08:20)
[2017-03-16] MEDS ORDERED: ARIPiprazole 10 MG TAB PO SCH (09:00)
[2017-03-16] MEDS ORDERED: ARIP1TAB12 PO (09:50)
[2017-03-16] MEDS ORDERED: NOVORP2 SQ (09:50)
[2017-03-16] MEDS ORDERED: ERGO1CAP30 PO (09:50)
[2017-03-16] MEDS ORDERED: METF850 PO (09:50)
--- NOTE | 2017-03-16 09:51 | HHI.DS ---
Psychiatry Discharge Summary Inpatient Psychiatric care?: Yes Advance Directive: No Reason Not Provided: NONE Mental Health AdvanceDirective: Clark and Number: NONE Health Care Proxy: Clark and Phone Number: NONE Admission Admission Date Mar 13, 2017 at 13:50 Admission Diagnosis: (1) Paranoid schizophrenia, chronic condition ICD Code: F20.0 - Paranoid schizophrenia Brief History 36-year-old male presents stating "I need to be Martinez acted". The patient describes a multiyear history of schizophrenia and bipolar disorder. He appears to be schizophrenic and this physician has treated him with the schizophrenia diagnosis in the past. He presents now with a history of being off his antipsychotic medicines for multiple months. He has been living with a girlfriend but is feeling paranoid and does not wish to return to her. He feels he is being persecuted by people in general in the public but he is unable to provide a plan or more information as to how he is being persecuted. He does feel he is being watched by others. He also describes auditory hallucinations. These hallucinations are critical of him. He therefore has suicidal ideation from time to time. He is unsure as to his last thought of suicide but he is unable to contract for safety. He would like to be placed back on his antipsychotic medicine although he does not remember its name. He has been treated at [facility] in the past, but again can't recall the last time he was seen there or why he stopped going. He denies the use of any alcohol or drugs and his toxicology screen is negative. Tobacco Use In Past 30 Days: No Tobacco Past 30 Days Alcohol Use: Never Hospital Course Patient was admitted to a locked, inpatient psychiatric unit. A general medical consultation was obtained. Appropriate precautions were in place throughout patient's hospital stay. Patient was seen and examined daily on the unit by psychiatry and also visited by counselor. Psychotropic medications were adjusted. Patient tolerated medications well without side effects. Patient had improvement of presenting psychiatric symptomatology. There was no evidence of any suicidality or homicidality on the inpatient unit. The patient remained in behavioral control and was medication compliant. On the day of discharge: Patient seen and examined. Chart reviewed. Case discussed in treatment team. Per nursing staff, no behavioral issues overnight. On my examination today, the patient is requesting discharge from the inpatient psychiatric unit. He denies any suicidal or homicidal ideation, intent or plan on direct questioning and contracts for safety. No depressive or hypomanic/ manic symptoms elicited. He denies any audiovisual hallucinations and does not appear internally stimulated. I can elicit no delusional beliefs. He denies side effects from medications. In particular, he denies any subjective restlessness consistent with akathisia, and in fact he appears much less fidgety today. No physical complaints. With the patient's permission, I have obtained collateral from his mother over the phone on the day of discharge. She has no concerns about the patient being discharged today. Weighing the acute, chronic, and protective factors and based on the available evidence, I jockey room custodian to a reasonable degree of medical certainty that the patient is at low imminent risk of harm to self or others from a mental illness as defined under the Martinez act and his level of function is adequate for outpatient care. Patient no longer meets criteria for involuntary psychiatric hospitalization. Given that he is requesting discharge from the inpatient unit today, I will arrange for his discharge today with psychiatric follow-up as arranged by counselor. Patient is also to follow-up with primary care. I have counseled the patient to abstain from substances of abuse and to consider chemical dependency evaluation and treatment on an outpatient basis. I have counseled the patient regarding warning signs for need to return to the psychiatric emergency room as part of the general safety plan. Results Blood Pressure 134 / 87 Vital Signs Date Time Temp Pulse Resp B/P (MAP) Pulse Ox O2 Delivery O2 Flow Rate FiO2 03/16/17 05:34 97.8 77 18 134/87 (103) 96 03/13/17 08:47 Room Air Laboratory Tests Test 03/13/17 10:30 03/14/17 10:16 03/14/17 10:47 03/15/17 17:33 Urine Microalbumin/Creatinine Ratio 32 MG/G CRE (0-30) Monocytes (%) (Auto) 8.8 % (0.0-8.0) Random Glucose 245 MG/DL (74-106) Sodium Level 134 MEQ/L (136-145) 134 MEQ/L (136-145) Hemoglobin A1c 8.6 % (4.3-6.0) HDL Cholesterol 89.4 MG/DL (40.0-60.0) 25-Hydroxy Vitamin D Total 9.7 ng/ML (30-100) Laboratory Results Test 03/14/17 10:47 Cholesterol Level 160 MG/DL (120-200) HDL Cholesterol 89.4 MG/DL (40.0-60.0) Hemoglobin A1c 8.6 % (4.3-6.0) LDL Cholesterol 52 MG/DL (0-99) Triglycerides Level 94 MG/DL (42-150) Summary of Procedures None done Imaging None done Pending results at discharge: Yes (Extended UTox) Medications # of Antipsychotic meds at D/C: 1 Approp Antipsych med options 1 - Minimum of three failed multiple trials of monotherapy. 2 - Documented plan to taper to monotherapy due to previous use of multiple meds OR cross-taper in progress at D/C. 3 - Documentation of augmentation of Clozapine. 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) ICD Code: F28 - Other psychotic disorder not due to a substance or known physiological condition Pt Condition on Discharge: Stable Discharge Disposition: Discharge Home Discharge Instructions Diet Instructions: Diabetic Diet Activities you can perform: Weight Bearing as Major Scheduled Appointment: Casimiro Jefferson Appointment Date: Mar 19, 2017 Appointment Time: 7:30 am New Orders: SODIUM - 1 Week VITAMIN D,25-HYDROXY - 2 Months New Medications: Aripiprazole (Aripiprazole) 10 Mg Tab 20 MG PO DAILY for Mental Health for 15 Days, #30 TAB 1 Refill Ergocalciferol (Ergocalciferol) 50,000 Unit Cap 88720 UNITS PO Q7D for Vitamin D supplement for 8 Days, CAP 0 Refills Insulin Human Regular Inj (Novolin R Inj) 1,000 Unit/10 Ml Vial 5 UNITS SQ TIDAC for Blood Sugar Management for 15 Days, INJECTION 1 Refill Metformin (Glucophage) 850 Mg Tab 850 MG PO BIDPC for Blood Sugar Management for 15 Days, TAB 1 Refill Discontinued Medications: Metformin (Metformin) 500 Mg Tab 500 MG PO BIDPC for Blood Sugar Management, TAB 0 Refills Discharge Time > 30 minutes Mental Status Examination Appearance: Appropriate Consciousness: Alert Orientation: x4 Motor Activity: Normal gait, Other (no hand tremor, no dystonia, no dyskinesia. No fidgetiness or restlessness. No other motoric abnormalities noted.) Speech: Unremarkable Language: Adequate Fund of Knowledge: Adequate Attention and Concentration: Adequate Memory: Unremarkable (intact on clinical exam) Mood: Appropriate Affect: Blunt (slightly blunted) Thought Process & Associations: Logical, Goal directed, Linear Thought Content: Appropriate Hallucination Type: None (denies AVH. Does not appear internally stimulated.) Delusion Type: None Suicidal Ideation: No Suicidal Plan: No Suicidal Intention: No Homicidal Ideation: No Homicidal Plan: No Homicidal Intention: No Insight: Fair Judgment: Adequate (fair) Discharge/Advance Care Plan Health Problems: (1) Other psychotic disorder not due to a substance or known physiological condition Goals to promote your health * To prevent worsening of your condition and complications * To maintain your health at the optimal level Directions to meet your goals Take your medications as prescribed Follow your dietary instruction Follow activity as directed Keep your appointments as scheduled Take your immunizations and boosters as scheduled If your symptoms worsen call your PCP, if no PCP go to Urgent Care Center or Emergency Room For 04/12 questions related to your inpatient stay or results of tests pending at discharge, please contact Dr. Foster Gill at Smoking is Dangerous to Your Health. Avoid second hand smoking Foster Gill MD Mar 16, 2017 09:51
[2017-03-16] MEDS: INSULIN HUMAN REGULAR 1,000 UNITS/10 ML VIAL SQ SCH (10:12)
[2017-03-19] MEDS ORDERED: METF850 PO (14:49)
[2017-03-19] MEDS ORDERED: ARIP1TAB12 PO (14:49)
[2017-03-19] MEDS ORDERED: NOVORP2 SQ (14:49)
== END 2017-03-16 11:30 | disposition home or self-care (01) | DRG 885 ==
LOC: NEPC 08:36 → NEDA 13:50 → H270 14:36
PROVIDERS: ADMIT Psychiatry & Neurology Psychiatry; ATTEND Psychiatry & Neurology Psychiatry
DX: F20.0 Paranoid schizophrenia (principal); R45.851 Suicidal ideations; E11.9 Type 2 diabetes mellitus without complications; F31.9 Bipolar disorder, unspecified; F10.10 Alcohol abuse, uncomplicated; F12.90 Cannabis use, unspecified, uncomplicated; F17.200 Nicotine dependence, unspecified, uncomplicated; Z91.14 Patient's other noncompliance with medication regimen; E86.0 Dehydration
CPT/HCPCS: 80053; 80061; 80307; 82043; 82306; 82607; 82948; 83036; 84295; 84443; 85025; G0481; J1815

== ENCOUNTER 2017-03-19 02:53 | Inpatient (IN) | payer OTHER ==
[~2017-03-19] VITALS: Ht 172.7 cm; Wt 71.5 kg
[~2017-03-19 02:53] MED LIST changes: +ARIP1TAB12 PO; -BLOO1KIT65; +ERGO1CAP30 PO; -LORA-392 PO; -METF1000 PO; +METF850 PO; +NOVORP2 SQ; -ZYPR5TAB PO
[2017-03-19 02:59] VITALS: BP 146/66; PULSE 103; RESP 16
--- NOTE | 2017-03-19 03:06 | PD ---
HPI Chief Complaint: BA Time Seen by Provider: 02:57 Travel History International Travel<30 days: No Contact w/Intl Traveler<30days: No Traveled to known affect area: No History of Present Illness HPI 36-year-old black male with a history of schizophrenia presents to emergency department under Martinez act. The patient states that he was just discharged from the hospital this Sunday after being seen for schizophrenia. He was given prescriptions for medications but he did not fill them. He states that he had called police this evening and had him self Martinez acted so he could get back on his medicines. He denies any suicidal ideation. No homicidal ideation. He denies any toxic ingestions. He denies any alcohol or drugs tonight. He states merely that he would like to be put back on his medications. PFSH Past Medical History Hx Anticoagulant Therapy: No Asthma: No Autoimmune Disease: No Anxiety: Yes Cardiovascular Problems: No Chemotherapy: No COPD: No Cerebrovascular Accident: No Diabetes: Yes Diminished Hearing: No Genitourinary: No Headaches: No Musculoskeletal: No Neurologic: No Psychiatric: Yes (Hx of treatment for Schizophrenia) Reproductive: No Respiratory: No Immunizations Current: Yes Past Surgical History Abdominal Surgery: No Ear Surgery: No Endocrine Surgery: Yes (NIDDM) Eye Surgery: No Genitourinary Surgery: No Gynecologic Surgery: No Hysterectomy: No Oral Surgery: No (BAD TEETH) Social History Alcohol Use: Yes (occ) Tobacco Use: Yes (1/2 ppd) Substance Use: Yes Allergies-Medications (Allergen,Severity, Reaction): Coded Allergies: No Known Allergies (Verified Adverse Reaction, Unknown, 03/19/17) Reported Meds & Prescriptions Reported Meds & Active Scripts Active Ergocalciferol 50,000 Unit Cap 50,000 Units PO Q7D 8 Days Novolin R Inj (Insulin Human Regular) 1,000 Unit/10 Ml Vial 5 Units SQ TIDAC 15 Days Glucophage (Metformin HCl) 850 Mg Tab 850 Mg PO BIDPC 15 Days Aripiprazole 10 Mg Tab 20 Mg PO DAILY 15 Days Review of Systems General / Constitutional: No: Fever Eyes: No: Visual changes HENT: No: Headaches Cardiovascular: No: Chest Pain or Discomfort Respiratory: No: Shortness of Breath Gastrointestinal: No: Abdominal Pain Genitourinary: No: Dysuria Musculoskeletal: No: Pain Skin: No Rash Neurologic: No: Weakness Psychiatric: No: Depression Endocrine: No: Polydipsia Hematologic/Lymphatic: No: Easy Bruising Physical Exam Narrative GENERAL: Well-nourished, well-developed patient. SKIN: Warm and dry. HEAD: Normocephalic and atraumatic. EYES: No scleral icterus. No injection or drainage. ENT: No nasal drainage noted. Mucous membranes pink. Airway patent. NECK: Supple, trachea midline. Moves head freely without obvious discomfort. CARDIOVASCULAR: Regular rate and rhythm without murmurs, gallops, or rubs. RESPIRATORY: Breath sounds equal bilaterally. No accessory muscle use. GASTROINTESTINAL: Abdomen soft, non-tender, nondistended. EXTREMITIES: No cyanosis or edema. BACK: Nontender without obvious deformity. No CVA tenderness. NEURO: Patient is alert and oriented. no sensorimotor deficits. Nonfocal. Normal speech. PSYCH: No delusions. No auditory or visual hallucinations. Data Data Last Documented VS Vital Signs Date Time Temp Pulse Resp B/P (MAP) Pulse Ox O2 Delivery O2 Flow Rate FiO2 03/19/17 02:59 103 16 146/66 (92) Orders Orders Psych Screen (03/19/17 03:03) Blood Glucose (03/19/17 03:57) Lorazepam Inj (Ativan Inj) (03/19/17 04:00) Olanzapine Inj (Zyprexa Inj) (03/19/17 04:00) Insulin Human Regular Inj (Novolin R Inj (03/19/17 04:00) MDM Medical Decision Making Medical Screen Exam Complete: Yes Emergency Medical Condition: Yes Medical Record Reviewed: Yes Differential Diagnosis MDM: High Differential diagnoses: Schizophrenia, schizoaffective disorder, bipolar, anxiety, depression, adjustment reaction, mood disorder NOS, ODD, depressive disorder NOS, dementia, dementia with agitation, psychosis NOS, substance induced mood disorder, DMDD, Asperger syndrome, infection,electrolyte abnormality, malingering. Narrative Course Mental health screening discussed with the patient. Psychiatric screen ordered. The patient's Accu-Chek is 360. He is given NovoLog 7 units subcutaneous, Zyprexa 10 mg IM, and 2 mg of Ativan IM. The patient is been medically cleared. This is medical clearance for psychiatric admission, schizophrenia Diagnosis Primary Impression: Medical clearance for psychiatric admission Additional Impression: Schizophrenia Qualified Codes: F20.9 - Schizophrenia, unspecified Condition: Stable Reji Warner Mar 19, 2017 03:06
[2017-03-19] MEDS ORDERED: OLANZapine IM 10 MG VIAL IM ONE ×2 (04:00)
[2017-03-19] MEDS ORDERED: LORazepam 2 MG/ML VIAL IM ONE ×2 (04:00)
[2017-03-19] MEDS ORDERED: INSULIN HUMAN REGULAR 1,000 UNITS/10 ML VIAL SQ ONE ×2 (04:00)
[2017-03-19 04:59] VITALS: BP 139/65; PULSE 89; RESP 17; TEMP 98.5; O2SAT 97
[2017-03-19] MEDS ORDERED: LORazepam 2 MG/ML VIAL IM PRN ×2 (05:00)
[2017-03-19] MEDS ORDERED: MAGNESIUM HYDROXIDE SUSP 30 ML CUP PO PRN ×2 (05:00)
[2017-03-19] MEDS ORDERED: diphenhydrAMINE HCL 50 MG/ML VIAL IM PRN ×2 (05:00)
[2017-03-19] MEDS ORDERED: LORazepam 1 MG TAB PO PRN ×2 (05:00)
[2017-03-19] MEDS ORDERED: ALUMINUM/MAGNESIUM/SIMETH 30 ML CUP PO PRN ×2 (05:00)
[2017-03-19] MEDS ORDERED: diphenhydrAMINE HCL 50 MG CAP PO PRN ×2 (05:00)
[2017-03-19] MEDS ORDERED: ACETAMINOPHEN 325 MG TAB PO PRN ×2 (05:00)
[2017-03-19] MEDS ORDERED: DEXTROSE 50% IN WATER 50 ML VIAL(D50) IV PUSH PRN (07:45)
[2017-03-19] MEDS ORDERED: GLUCAGON 1 MG/ML VIAL OTHER PRN ×2 (07:45)
[2017-03-19] MEDS: INSULIN HUMAN REGULAR 1,000 UNITS/10 ML VIAL SQ SCH ×4 (08:00→11:45)
[2017-03-19] MEDS: INSULIN ASPART SUPPLEMENTAL SCALE SQ SCH ×4 (08:00→11:45)
[2017-03-19] MEDS: NICOTINE 21 MG/24 HR PATCH T-DERMAL SCH ×4 (08:43→08:48)
[2017-03-19] MEDS ORDERED: metFORMIN HCL 850 MG TAB PO SCH ×4 (09:00→18:00)
--- NOTE | 2017-03-19 10:17 | HHI.HP ---
Provisional Diagnosis Admission Date Mar 19, 2017 at 04:36 [place] I. 1. Other psychotic disorder [place] II. Deferred Certification of Person's Competence To Provide Express and Informed Consent I have personally examined Jovan Cristina , a person being served at [facility] on, Mar 19, 2017 10:17. Express and informed consent means consent voluntarily given in writing, by a competent person, after sufficient explanation and disclosure of the subject matter involved to enable the person to make a knowing and willful decision without any element of force, fraud, deceit, duress, or other form of constraint or coercion. This person is 18 years of age or older, is not now known to be incompetent to consent to treatment with a guardian advocate, and does not have a health care surrogate or proxy currently making medical treatment decisions. I have found this person to be one of the following: [x] Competent to provide express and informed consent, as defined above, for voluntary admission to this facility and is competent to provide express and informed consent for treatment. He/she has the consistent capacity to make well reasoned, willful, and knowing decisions concerning his or her medical or mental health treatment. The person fully and consistently understands the purpose of the admission for examination/placement and is fully capable of personally exercising all rights assured under [place] Incompetent to provide express and informed consent to voluntary admission, and this is incompetent to provide express and informed consent to treatment. The person must be transferred to involuntary status and a petition for a guardian advocate filed with the Circuit Court. [] Refusing to provide express and informed consent to voluntary admission but is competent to provide express and informed consent for treatment. The person must be discharged or transferred to involuntary status. Form shall be completed within 24 hours of a person's arrival at the receiving facility and filed in the clinical record of each person: 1. Admitted on a voluntary basis 2. Permitted to provide express and informed consent to his/her own treatment 3. Allowed to transfer from involuntary to voluntary status 4. Prior to permitting a person to consent to his or her own treatment after having been previously found incompetent to consent to treatment. History of Present Illness Capacity: Has Capacity Psych Chief Complaint: "Need to get back on my meds." HPI Mr. Cristina is a 36-year-old male with a history of psychosis who presented to the ED under a Martinez act by law enforcement alleging that the patient had been nonadherent with medications and believed people were after him and so was behaving erratically. ED provider note reviewed: "He was given prescriptions for medications but he did not fill them. He states that he had called police this evening and had him self Martinez acted so he could get back on his medicines. He denies any suicidal ideation. No homicidal ideation. He denies any toxic ingestions. He denies any alcohol or drugs tonight. He states merely that he would like to be put back on his medications." Patient is known to me as he was hospitalized here under my care from 03/13-03/16/17. Electronic medical record reviewed. Patient seen and examined. Chart reviewed. I note that the patient received Zyprexa and Ativan IM this morning, although there is no indication of agitation or behavioral disturbance to necessitate these agents. Indeed, patient's nurse reports that he has been no behavioral problem on the unit. There has been no evidence of suicidality or homicidality on the inpatient unit. I endeavored to evaluate the patient this morning, but he was still too sedated as a consequence of the above medications to participate in interview. I have returned this afternoon to evaluate the patient. He is awake and alert. He is sitting calmly in the day area and is exhibiting no odd behavior or behavioral disturbance. He requests discharge from the inpatient psychiatric unit today. He reiterates that his goal in coming in to the hospital was to get back on his meds as he did not have these filled after leaving the unit last time, nor did he follow up psychiatrically after discharge. He denies the allegations of erratic behavior contained in the Martinez act. He denies any suicidal or homicidal ideation, intent or plan on direct questioning and contracts for safety. I can elicit no depressive or hypomanic/manic symptoms at this time. He denies any audiovisual hallucinations, and I can elicit no delusional material. The remainder of the psychiatric ROS is negative. He has no physical complaints. Past psychiatric history, family history, chemical dependency history and social history are as per my progress note on 03/14. No reported access to guns/ firearms. Review of Systems Except as stated in HPI: all other systems reviewed are Neg Past Psych History Psychological trauma history No reported physical complaints. Violence risk - others (6 mos) He denies any homicidal ideation. No violent behavior on the unit. No evidence of any presently unstable mental illness as defined under the Martinez act that would confer risk for violence. Violence risk - self (6 mos) Denies suicidal ideation. No evidence of suicidality on the inpatient unit. No evidence of presently unstable mental illness as defined under the Martinez act that would confer risk for suicide. He appears to be attending to his basic needs and there does not appear to be a significant self-care deficit. Substance Abuse History Drugs/Alcohol past 12 months Patient denies any substance use between admissions besides cigarettes. His extended urine toxicology screen from previous admission is negative. Past Family Social History Coded Allergies: No Known Allergies (Verified Allergy, Unknown, 03/19/17) Past Medical History See electronic medical record Active Scripts Insulin Human Regular Inj (Novolin R Inj) 1,000 Unit/10 Ml Vial, 5 UNITS SQ TIDAC for Blood Sugar Management for 7 Days, INJECTION 3 Refills Prov:Foster Gill MD 03/19/17 Metformin (Glucophage) 850 Mg Tab, 850 MG PO BIDPC for Blood Sugar Management for 7 Days, TAB 3 Refills Prov:Foster Gill MD 03/19/17 Aripiprazole (Aripiprazole) 10 Mg Tab, 20 MG PO DAILY for Mental Health for 7 Days, #14 TAB 3 Refills Prov:Foster Gill MD 03/19/17 Ergocalciferol (Ergocalciferol) 50,000 Unit Cap, 31516 UNITS PO Q7D for Vitamin D supplement for 8 Days, CAP 0 Refills Prov:Foster Gill MD 03/16/17 Discontinued Reported Medications Metformin (Metformin) 500 Mg Tab, 500 MG PO BIDPC for Blood Sugar Management, TAB 0 Refills 03/13/17 Discontinued Scripts Lorazepam (Ativan) 0.5 Mg Tab, 0.5 MG PO every 12 hours Y for ANXIETY AND/OR AGITATION, #60 TAB 0 Refills Prov:Awais Guajardo MD 10/20/16 Olanzapine (Zyprexa) 5 Mg Tab, 5 MG PO BID, #60 TAB 0 Refills Prov:Awais Guajardo MD 10/20/16 Metformin (Metformin) 1,000 Mg Tab, 1000 MG PO BIDPC for Blood Sugar Management , #60 TAB 0 Refills With meals Prov:Keon Gamino MD 10/17/16 Blood Glucose Monitoring Suppl (Accu-Chek Cyndi Connect W/Device) 1 Kit Kit, 1 KIT .ROUTE DIRECTED for Blood Sugar Management, #1 KIT 0 Refills Prov:Holli Shirley MD 08/10/16 Current Medications Medications (Trade) Dose Ordered Sig/Jaxon Route Start Time Stop Time Status Last Admin (Ativan) 1 mg Q6H PRN PO 03/19/17 05:00 (Ativan Inj) 1 mg Q6H PRN IM 03/19/17 05:00 (Benadryl) 50 mg Q6H PRN PO 03/19/17 05:00 (Benadryl Inj) 50 mg Q6H PRN IM 03/19/17 05:00 (Tylenol) 650 mg Q4H PRN PO 03/19/17 05:00 (Milk Of Magnesia Liq) 30 ml DAILY PRN PO 03/19/17 05:00 (Mag-Al Plus Susp Liq) 30 ml Q6H PRN PO 03/19/17 05:00 (Habitrol 21 Mg Patch.24 Hr) 1 patch DAILY T-DERMAL 03/19/17 09:00 Miscellaneous Information 1 HS T-DERMAL 03/19/17 21:00 (Abilify) 20 mg DAILY PO 03/19/17 09:00 03/19/17 08:43 (NovoLIN R INJ) 5 units TIDAC SQ 03/19/17 08:00 03/19/17 08:00 (Glucophage) 850 mg BIDPC PO 03/19/17 09:00 03/19/17 08:43 (D50w (Vial) Inj) 50 ml UNSCH PRN IV PUSH 03/19/17 07:45 (Glucagon Inj) 1 mg UNSCH PRN OTHER 03/19/17 07:45 (NovoLOG SUPPLEMENTAL SCALE) 1 ACHS SLIDING SCALE SQ 03/19/17 08:00 03/19/17 08:00 Family Psych History See above Social History See above Patient's Strengths (min. 2) Able to access clinical care. Verbally fluent. Physical Exam Physical exam completed by ED provider. On my examination today, the patient appears to be in no acute physical distress. No motoric abnormalities noted. No signs of any intoxication or withdrawal noted. Labs and vitals reviewed: Vital Signs Vital Signs Date Time Temp Pulse Resp B/P (MAP) Pulse Ox O2 Delivery O2 Flow Rate FiO2 03/19/17 04:59 98.5 89 17 139/65 (89) 97 Lab Results No new laboratories were ordered by the ED provider. Most recent laboratories from previous admission reviewed. I did order a urine toxicology screen this morning but the patient has not provided urine for assessment. Mental Status Examination Appearance: Appropriate (in hospital attire. Fairly well groomed.) Consciousness: Alert Orientation: x4 Motor Activity: Normal gait, Other (no motor abnormalities noted) Speech: Unremarkable Language: Adequate Fund of Knowledge: Adequate Attention and Concentration: Adequate Memory: Unremarkable (grossly intact on clinical exam) Mood: Other (fair) Affect: Blunt Thought Process & Associations: Logical, Goal directed, Linear Thought Content: Appropriate Hallucination Type: None Delusion Type: None Suicidal Ideation: No Suicidal Plan: No Suicidal Intention: No Homicidal Ideation: No Homicidal Plan: No Homicidal Intention: No Insight: Fair (knows that he needs to be on medications for his mental health condition) Judgment: Adequate (fair at best) Assessment & Plan Problem List: (1) Other psychotic disorder not due to a substance or known physiological condition ICD Codes: F28 - Other psychotic disorder not due to a substance or known physiological condition Assessment & Plan 36-year-old Kathy male psychiatric history as detailed above who was admitted to the inpatient psychiatric unit under a Martinez act. The patient tells me today that he had himself Martinez acted to be brought into the hospital in order to obtain a medication refill. He says that he did not fill the psychotropics that were ordered for him on discharge last time. He denies any suicidal or homicidal ideation at this time. I can detect no unstable mental illness as defined under the Martinez act in this patient at this time. He appears to be attending to his basic needs. Synthesizing the above information and weighing the relevant factors, I bus and trolley dispatcher that the patient does not presently meet the Martinez act criteria. I have recommended that the patient remain voluntarily on the unit to resume medications once again in a monitored setting , but he has declined. He is insisting upon discharge today. Given that he presented chiefly for medication refill, I have instructed the counselor to fill a 7 day supply of his medications and provide them to the patient prior to discharge. The patient would likely benefit from a long-acting injectable antipsychotic, but as noted last time we have not had the patient on the Abilify long enough to assess for good tolerability to permit safe initiation of Maintena. I have also consulted the [facility] health care coordinator to try to make contact with patient in the community and ensure that he remains adherent with medications and follows up psychiatrically. Patient will be discharged home today in stable condition with psychiatric follow-up as arranged by counselor. Patient is also to follow-up with primary care. Patient to return to psychiatric emergency room for any concerning psychiatric symptoms. As noted above, I have ordered the patient a 7 day supply of his Abilify 20mg daily, metformin 850mg BIDPC and regular insulin 5 units TIDAC with 3 refills of each. This note serves also as my discharge summary. Request HC Surrog/Guard Advoc?: No Foster Gill MD Mar 19, 2017 10:17
[2017-03-19] MEDS ORDERED: NOVORP2 SQ ×2 (14:49)
[2017-03-19] MEDS ORDERED: METF850 PO ×2 (14:49)
[2017-03-19] MEDS ORDERED: ARIP1TAB12 PO ×2 (14:49)
--- NOTE | 2017-03-19 17:00 | PD.CONS ---
[facility] By Foster Gill Reason for Consult medical Management. Primary Care Physician Unknown Diagnoses: History of Present Illness Readmission of a patient 36 y/o male under Martinez Act, with Diagnosis of Psychosis asking for Medication refill. This is a pleasant 36 y/o Male with Schizophrenia who came to ER under Martinez act by law enforcement, he stood he was back on his medicines, and that he is been sick for a little bit, as well as tired, admitted to psychiatric unit and asked for Medicine evaluation. seen in Psychiatric [place] stable. we were asked to see him for Medical management of his Diabetes. the patient did not refill his medicines, at this time seen in the presence of nurse in his Psychiatric unit, improving on actual management started of Insulin Long lasting, sliding scale and scheduled with every meal. will re start his Metformin 850 mg bid. Review of Systems Constitutional: DENIES: Fever, Chills, Change in appetite Endocrine: DENIES: Heat/cold intolerance Eyes: DENIES: Blurred vision, Eye pain Except as stated in HPI: all other systems reviewed are Neg Past Family Social History Allergies: Coded Allergies: No Known Allergies (Verified Allergy, Unknown, 03/19/17) Past Medical History Schizophrenia Bipolar disorder [place] II. Past Surgical History No past surgical history Reported Medications Reported Meds & Active Scripts Active Novolin R Inj (Insulin Human Regular) 1,000 Unit/10 Ml Vial 5 Units SQ TIDAC 7 Days Glucophage (Metformin HCl) 850 Mg Tab 850 Mg PO BIDPC 7 Days Aripiprazole 10 Mg Tab 20 Mg PO DAILY 7 Days Ergocalciferol 50,000 Unit Cap 50,000 Units PO Q7D 8 Days Active Ordered Medications Current Medications Medications (Trade) Dose Ordered Sig/Jaxon Route Start Time Stop Time Status Last Admin (Ativan) 1 mg Q6H PRN PO 03/19/17 05:00 (Ativan Inj) 1 mg Q6H PRN IM 03/19/17 05:00 (Benadryl) 50 mg Q6H PRN PO 03/19/17 05:00 (Benadryl Inj) 50 mg Q6H PRN IM 03/19/17 05:00 (Tylenol) 650 mg Q4H PRN PO 03/19/17 05:00 (Milk Of Magnesia Liq) 30 ml DAILY PRN PO 03/19/17 05:00 (Mag-Al Plus Susp Liq) 30 ml Q6H PRN PO 03/19/17 05:00 (Habitrol 21 Mg Patch.24 Hr) 1 patch DAILY T-DERMAL 03/19/17 09:00 Miscellaneous Information 1 HS T-DERMAL 03/19/17 21:00 (Abilify) 20 mg DAILY PO 03/19/17 09:00 03/19/17 08:43 (NovoLIN R INJ) 5 units TIDAC SQ 03/19/17 08:00 03/19/17 08:00 (Glucophage) 850 mg BIDPC PO 03/19/17 09:00 03/19/17 08:43 (D50w (Vial) Inj) 50 ml UNSCH PRN IV PUSH 03/19/17 07:45 (Glucagon Inj) 1 mg UNSCH PRN OTHER 03/19/17 07:45 (NovoLOG SUPPLEMENTAL SCALE) 1 ACHS SLIDING SCALE SQ 03/19/17 08:00 03/19/17 08:00 Family History Father and mother with DM and Hypertension Social History Lives with his girlfriend alcohol abuse yes 3 drinks daily Tobacco dependence one pack per day since he was 12 years of age Marijuana abuse occasional. Physical Exam Vital Signs Vital Signs Date Time Temp Pulse Resp B/P (MAP) Pulse Ox O2 Delivery O2 Flow Rate FiO2 03/19/17 04:59 98.5 89 17 139/65 (89) 97 03/19/17 02:59 103 16 146/66 (92) Physical Exam GENERAL: alert and oriented no acute distress. SKIN: Focused skin assessment warm/dry. HEAD: Atraumatic. Normocephalic. EYES: Pupils equal and round. No scleral icterus. No injection or drainage. ENT: No nasal bleeding or discharge. Mucous membranes pink and moist. NECK: Trachea midline. No JVD. CARDIOVASCULAR: Regular rate and rhythm. No murmur appreciated. RESPIRATORY: No accessory muscle use. Clear to auscultation. Breath sounds equal bilaterally. GASTROINTESTINAL: Abdomen soft, non-tender, nondistended. Hepatic and splenic margins not palpable. MUSCULOSKELETAL: No obvious deformities. No clubbing. No cyanosis. No edema. NEUROLOGICAL: Awake and alert. No obvious cranial nerve deficits. Motor grossly within normal limits. Normal speech. PSYCHIATRIC: Appropriate mood and affect; insight and judgment normal. Assessment and Plan Assessment and Plan 1. Diabetes mellitus II asked for laboratory and following, will continue Metformin from home and sliding scale. 2. Schizophrenia and Bipolar disorder. continue psychiatry specialist management Follow laboratory no need for DVT prophylaxis the patient is active at this time walking in the aisle. Code Status Full Code. Code Status Full Code Discussed Condition With Patient and nurse. Donny Arndt MD Mar 19, 2017 17:00
[2017-03-19] MEDS ORDERED: REMOVE OLD NICOTINE PATCH T-DERMAL SCH ×2 (21:00)
== END 2017-03-19 16:50 | disposition home or self-care (01) | DRG 885 ==
LOC: NEPJ 02:53 → NEDA 04:36 → H270 04:53
PROVIDERS: ADMIT Psychiatry & Neurology Psychiatry; ATTEND Psychiatry & Neurology Psychiatry
DX: F28 Other psychotic disorder not due to a substance or known physiological condition (principal); E11.9 Type 2 diabetes mellitus without complications; F17.210 Nicotine dependence, cigarettes, uncomplicated; Z91.14 Patient's other noncompliance with medication regimen; Z79.4 Long term (current) use of insulin
CPT/HCPCS: 82948; J1815; J2060

== ENCOUNTER 2017-05-14 13:23 | Inpatient (IN) | payer OTHER ==
[~2017-05-14] VITALS: Ht 177.8 cm; Wt 69.1 kg
[~2017-05-14 13:23] MED LIST changes: -ERGO1CAP30 PO; +VITA500012 PO
[2017-05-14 13:31] VITALS: BP 145/100; PULSE 107; RESP 20; TEMP 97.9; O2SAT 97
[2017-05-14 13:37] VITALS: BP 145/100; PULSE 107; RESP 20; TEMP 97.9; O2SAT 97
[2017-05-14 14:07] LABS: AUTOMATED NEUTROPHIL # 7.6 TH/MM3 (1.8-7.7); BASOPHIL # 0.1 TH/MM3 (0-0.2); BASOPHIL % 0.6 % (0.0-2.0); EOSINOPHIL % 0.1 % (0.0-4.0); HEMATOCRIT 43.3 % (39.0-51.0); HEMOGLOBIN 14.6 GM/DL (13.0-17.0); LYMPH % 17.9 % (9.0-44.0); LYMPHOCYTE # 1.9 TH/MM3 (1.0-4.8); MEAN CELL VOLUME 86.9 FL (80.0-100.0); MEAN CORPUSCULAR HEMOGLOBIN 29.3 PG (27.0-34.0); MEAN CORPUSCULAR HGB CONC 33.7 % (32.0-36.0); MEAN PLATELET VOLUME 8.8 FL (7.0-11.0); MONO % 8.9 % (0.0-8.0); MONOCYTE # 0.9 TH/MM3 (0-0.9); NEUT % 72.5 % (16.0-70.0); PLATELET COUNT 237 TH/MM3 (150-450); RED BLOOD COUNT 4.98 MIL/MM3 (4.50-5.90); WHITE BLOOD COUNT 10.4 TH/MM3 (4.0-11.0)
[2017-05-14] MEDS ORDERED: LORazepam 1 MG TAB PO ONE (14:15)
[2017-05-14 14:25] LABS: ALBUMIN 3.9 GM/DL (3.4-5.0); ALT (GPT) 20 U/L (12-78); AST (GOT) 15 U/L (15-37); BICARBONATE 22.6 MEQ/L (21.0-32.0); BLOOD UREA NITROGEN 10 MG/DL (7-18); CALCIUM 9.6 MG/DL (8.5-10.1); CHLORIDE 99 MEQ/L (98-107); CREATININE 0.91 MG/DL (0.60-1.30); GLOMERULAR FILTRATION RATE 114 ML/MIN (>89); GLUCOSE,RANDOM 312 MG/DL (74-106); SODIUM (NA) 133 MEQ/L (136-145)
[2017-05-14 14:27] LABS: ALKALINE PHOSPHATASE 101 U/L (45-117); TOTAL BILIRUBIN ADULT 2.3 MG/DL (0.2-1.0); TOTAL PROTEIN 8.1 GM/DL (6.4-8.2)
--- NOTE | 2017-05-14 14:35 | PD ---
HPI Chief Complaint: Psychiatric Symptoms Time Seen by Provider: 13:27 Travel History International Travel<30 days: No Contact w/Intl Traveler<30days: No Traveled to known affect area: No History of Present Illness HPI The patient arrives as a Martinez act by the police department. He was found agitated. PD reports patient abused flakka or a synthetic cannabinoid. Pt denies intent to harm others or himself in ED. He complains of thirst here. Pt denies drug abuse here. Location neuropsychiatric. Timing constant. PFSH Past Medical History Hx Anticoagulant Therapy: No Asthma: No Autoimmune Disease: No Bipolar Disorder: Yes Anxiety: Yes Cardiovascular Problems: No Chemotherapy: No COPD: No Cerebrovascular Accident: No Diabetes: Yes Patient Takes Glucophage: Yes Diminished Hearing: No Genitourinary: No Headaches: No Musculoskeletal: No Neurologic: No Psychiatric: Yes (Hx of treatment for Schizophrenia) Reproductive: No Respiratory: No Immunizations Current: Yes Schizophrenia: Yes Influenza Vaccination: Yes Past Surgical History Abdominal Surgery: No Ear Surgery: No Endocrine Surgery: Yes (NIDDM) Eye Surgery: No Genitourinary Surgery: No Gynecologic Surgery: No Hysterectomy: No Social History Alcohol Use: Yes (occ) Tobacco Use: Yes (1/2 ppd) Substance Use: No (DENIED) Allergies-Medications (Allergen,Severity, Reaction): Coded Allergies: No Known Allergies (Verified Allergy, Unknown, 03/19/17) Reported Meds & Prescriptions Reported Meds & Active Scripts Active Novolin R Inj (Insulin Human Regular) 1,000 Unit/10 Ml Vial 5 Units SQ TIDAC 7 Days Glucophage (Metformin HCl) 850 Mg Tab 850 Mg PO BIDPC 7 Days Aripiprazole 10 Mg Tab 20 Mg PO DAILY 7 Days Ergocalciferol 50,000 Unit Cap 50,000 Units PO Q7D 8 Days Review of Systems Except as stated in HPI: all other systems reviewed are Neg General / Constitutional: No: Fever Cardiovascular: No: Chest Pain or Discomfort Respiratory: No: Cough Physical Exam Narrative GENERAL: 36 yo M, mild anxiety SKIN: Warm and dry. HEAD: Atraumatic. Normocephalic. EYES: Pupils equal and round. No scleral icterus. No injection or drainage. ENT: No nasal bleeding or discharge. Mucous membranes pink and moist. NECK: Trachea midline. No JVD. CARDIOVASCULAR: Tachycardia to 110. Regular. RESPIRATORY: No accessory muscle use. Clear to auscultation. Breath sounds equal bilaterally. GASTROINTESTINAL: Abdomen soft, non-tender, nondistended. Hepatic and splenic margins not palpable. MUSCULOSKELETAL: Extremities without clubbing, cyanosis, or edema. No obvious deformities. NEUROLOGICAL: Awake and alert. No obvious cranial nerve deficits. Motor grossly within normal limits. Five out of 5 muscle strength in the arms and legs. Normal speech. PSYCHIATRIC: Mild anxiety. No HI/SI. Data Data Last Documented VS Vital Signs Date Time Temp Pulse Resp B/P (MAP) Pulse Ox O2 Delivery O2 Flow Rate FiO2 05/14/17 13:37 97.9 107 20 145/100 (115) 97 Room Air VS reviewed Orders Orders Complete Blood Count With Diff (05/14/17 13:27) Comprehensive Metabolic Panel (05/14/17 13:27) Psych Screen (05/14/17 13:27) Drug Screen, Random Urine (05/14/17 13:27) Lorazepam (Ativan) (05/14/17 14:15) Labs Laboratory Tests Test 05/14/17 13:50 05/14/17 13:52 White Blood Count 10.4 TH/MM3 Red Blood Count 4.98 MIL/MM3 Hemoglobin 14.6 GM/DL Hematocrit 43.3 % Mean Corpuscular Volume 86.9 FL Mean Corpuscular Hemoglobin 29.3 PG Mean Corpuscular Hemoglobin Concent 33.7 % Red Cell Distribution Width 14.0 % Platelet Count 237 TH/MM3 Mean Platelet Volume 8.8 FL Neutrophils (%) (Auto) 72.5 % Lymphocytes (%) (Auto) 17.9 % Monocytes (%) (Auto) 8.9 % Eosinophils (%) (Auto) 0.1 % Basophils (%) (Auto) 0.6 % Neutrophils # (Auto) 7.6 TH/MM3 Lymphocytes # (Auto) 1.9 TH/MM3 Monocytes # (Auto) 0.9 TH/MM3 Eosinophils # (Auto) 0.0 TH/MM3 Basophils # (Auto) 0.1 TH/MM3 CBC Comment DIFF FINAL Differential Comment Blood Urea Nitrogen 10 MG/DL Creatinine 0.91 MG/DL Random Glucose 312 MG/DL Total Protein 8.1 GM/DL Albumin 3.9 GM/DL Calcium Level 9.6 MG/DL Alkaline Phosphatase 101 U/L Aspartate Amino Transf (AST/SGOT) 15 U/L Alanine Aminotransferase (ALT/SGPT) 20 U/L Total Bilirubin 2.3 MG/DL Sodium Level 133 MEQ/L Potassium Level 3.8 MEQ/L Chloride Level 99 MEQ/L Carbon Dioxide Level 22.6 MEQ/L Anion Gap 11 MEQ/L Estimat Glomerular Filtration Rate 114 ML/MIN Urine Opiates Screen NEG Urine Barbiturates Screen NEG Urine Amphetamines Screen NEG Urine Benzodiazepines Screen NEG Urine Cocaine Screen NEG Urine Cannabinoids Screen NEG MDM Medical Decision Making Medical Screen Exam Complete: Yes Emergency Medical Condition: Yes Medical Record Reviewed: Yes Differential Diagnosis Altered mental status/psychosis due to infection/environmental exposure/ metabolic abnormality, polypharmacy, alcohol abuse/intoxication, illicit or prescribed drug abuse, malingering/secondary gain, non-organic psychiatric disease Narrative Course Drug screens pain negative Flacca or K2 would have false negative results Pt medically clear for psychiatry evaluation Diagnosis Primary Impression: Paranoid delusion Additional Impression: Medical clearance for psychiatric admission Admitting Information Admitting Physician Requests: Observation Conner Frazier MD May 14, 2017 14:35
[2017-05-14] MEDS ORDERED: INSULIN ASPART 1,000 UNITS/10 ML VIAL SQ ONE (19:45)
[2017-05-15 00:58] VITALS: BP 142/96; PULSE 130; RESP 20
[2017-05-15 06:46] VITALS: BP 134/87; PULSE 104; RESP 18
[2017-05-15 10:00] VITALS: BP_SYST 114; BP_SYST 128; BP_DIAS 75; BP_DIAS 87; PULSE 91; PULSE 94; RESP 18; O2SAT 97; O2SAT 99
[2017-05-15] MEDS ORDERED: diphenhydrAMINE HCL 50 MG/ML VIAL IM PRN (14:00)
[2017-05-15] MEDS ORDERED: ACETAMINOPHEN 325 MG TAB PO PRN (14:00)
[2017-05-15] MEDS ORDERED: ALUMINUM/MAGNESIUM/SIMETH 30 ML CUP PO PRN (14:00)
[2017-05-15] MEDS ORDERED: diphenhydrAMINE HCL 50 MG CAP PO PRN (14:00)
[2017-05-15] MEDS ORDERED: MAGNESIUM HYDROXIDE SUSP 30 ML CUP PO PRN (14:00)
[2017-05-15] MEDS ORDERED: LORazepam 1 MG TAB PO PRN (14:00)
[2017-05-15] MEDS ORDERED: LORazepam 2 MG/ML VIAL IM PRN (14:00)
[2017-05-15] MEDS ORDERED: traZODone HCL 50 MG TAB PO PRN (14:00)
--- NOTE | 2017-05-15 14:08 | HHI.HP ---
Provisional Diagnosis Admission Date [place]. Paranoid schizophrenia Certification of Person's Competence To Provide Express and Informed Consent I have personally examined Jovan Cristina , a person being served at [facility] on, May 15, 2017 13:53. Express and informed consent means consent voluntarily given in writing, by a competent person, after sufficient explanation and disclosure of the subject matter involved to enable the person to make a knowing and willful decision without any element of force, fraud, deceit, duress, or other form of constraint or coercion. This person is 18 years of age or older, is not now known to be incompetent to consent to treatment with a guardian advocate, and does not have a health care surrogate or proxy currently making medical treatment decisions. I have found this person to be one of the following: [x] Competent to provide express and informed consent, as defined above, for voluntary admission to this facility and is competent to provide express and informed consent for treatment. He/she has the consistent capacity to make well reasoned, willful, and knowing decisions concerning his or her medical or mental health treatment. The person fully and consistently understands the purpose of the admission for examination/placement and is fully capable of personally exercising all rights assured [place] Incompetent to provide express and informed consent to voluntary admission, and this is incompetent to provide express and informed consent to treatment. The person must be transferred to involuntary status and a petition for a guardian advocate filed with the Circuit Court. [] Refusing to provide express and informed consent to voluntary admission but is competent to provide express and informed consent for treatment. The person must be discharged or transferred to involuntary status. Form shall be completed within 24 hours of a person's arrival at the receiving facility and filed in the clinical record of each person: 1. Admitted on a voluntary basis 2. Permitted to provide express and informed consent to his/her own treatment 3. Allowed to transfer from involuntary to voluntary status 4. Prior to permitting a person to consent to his or her own treatment after having been previously found incompetent to consent to treatment. History of Present Illness Capacity: Has Capacity HPI 36-year-old male presents under a Martinez act with auditory hallucinations, paranoid delusions that others are trying to kill him and inability to care for himself. Patient is known to this physician and the staff in the Department of psychiatry, here at [facility]. He has been admitted here previously and carry diagnoses of schizophrenia, schizoaffective disorder, etc. He has been noncompliant with his psychotropic medicines again, prior to this admission. He has a pattern of being noncompliant. Possibly as a result, the patient is now complaining of auditory hallucinations, telling him others are trying to kill him. This has become a delusional belief as well. The patient has also been noncompliant with his nonpsychotropic physical medications, including those to assist with blood sugar control, etc. Upon interview, the patient demonstrates looseness of associations and at times is nonsensical. However, he does report auditory hallucinations. He does report feelings that others are going to kill him. He does report that his family will not support him in any way. Finally, he does provide a history that he is not caring for himself, his diabetes, etc. He admits to smoking flocca but this is not detectable on a drug screen. He also admits to suicidal ideation and states he could walk in front of traffic. Review of Systems Psychiatric: COMPLAINS OF: Anxiety, Depression, Hallucinations, Suicidal Ideation Except as stated in HPI: all other systems reviewed are Neg Past Psych History Psychological trauma history Unknown. Violence risk - others (6 mos) Moderate. Patient is paranoid of other people trying to kill him. Violence risk - self (6 mos) High. Patient is not caring for his diabetes, etc. He is experiencing auditory hallucinations and having suicidal thoughts. Substance Abuse History Drugs/Alcohol past 12 months See above. Patient does have a history of drug and alcohol abuse. Toxicology screen is negative today. Past Family Social History Coded Allergies: No Known Allergies (Verified Allergy, Unknown, 03/19/17) Active Scripts Insulin Human Regular Inj (Novolin R Inj) 1,000 Unit/10 Ml Vial, 5 UNITS SQ TIDAC for Blood Sugar Management for 7 Days, INJECTION 3 Refills Prov:Foster Gill MD 03/19/17 Metformin (Glucophage) 850 Mg Tab, 850 MG PO BIDPC for Blood Sugar Management for 7 Days, TAB 3 Refills Prov:Foster Gill MD 03/19/17 Aripiprazole (Aripiprazole) 10 Mg Tab, 20 MG PO DAILY for Mental Health for 7 Days, #14 TAB 3 Refills Prov:Foster Gill MD 03/19/17 Ergocalciferol (Ergocalciferol) 50,000 Unit Cap, 86920 UNITS PO Q7D for Vitamin D supplement for 8 Days, CAP 0 Refills Prov:Foster Gill MD 03/16/17 Current Medications Medications (Trade) Dose Ordered Sig/Jaxon Route Start Time Stop Time Status Last Admin (Ativan) 1 mg Q6H PRN PO 05/15/17 14:00 UNV (Ativan Inj) 1 mg Q6H PRN IM 05/15/17 14:00 UNV (Benadryl) 50 mg Q6H PRN PO 05/15/17 14:00 UNV (Benadryl Inj) 50 mg Q6H PRN IM 05/15/17 14:00 UNV (Tylenol) 650 mg Q4H PRN PO 05/15/17 14:00 UNV (Milk Of Magnesia Liq) 30 ml DAILY PRN PO 05/15/17 14:00 UNV (Mag-Al Plus Susp Liq) 30 ml Q6H PRN PO 05/15/17 14:00 UNV (Desyrel) 50 mg HS PRN PO 05/15/17 14:00 UNV (Abilify) 20 mg DAILY PO 05/15/17 14:00 UNV (NovoLIN R INJ) 5 units TIDAC SQ 05/15/17 17:00 UNV (Glucophage) 850 mg BIDPC PO 05/15/17 14:00 UNV Family Psych History Positive for psychotic mental illness. Social History Patient is unemployed and receives Social Security disability. He does experiment or self medicate with drugs intermittently. He has minimal family support at this time. Patient's Strengths (min. 2) Verbal and has access to healthcare. Physical Exam GENERAL: SKIN: Warm and dry. HEAD: Normocephalic. EYES: No scleral icterus. No injection or drainage. NECK: Supple, trachea midline. No JVD or lymphadenopathy. CARDIOVASCULAR: Regular rate and rhythm without murmurs, gallops, or rubs. RESPIRATORY: Breath sounds equal bilaterally. No accessory muscle use. GASTROINTESTINAL: Abdomen soft, non-tender, nondistended. MUSCULOSKELETAL: No cyanosis, or edema. BACK: Nontender without obvious deformity. No CVA tenderness. Vital Signs Vital Signs Date Time Temp Pulse Resp B/P (MAP) Pulse Ox O2 Delivery O2 Flow Rate FiO2 05/15/17 10:00 91 18 128/87 (101) 97 Room Air 05/14/17 13:37 97.9 Mental Status Examination Appearance: Disheveled Consciousness: Alert Orientation: Person, Place Motor Activity: Normal gait Speech: Hesitant Language: Adequate Fund of Knowledge: Inadequate Attention and Concentration: Easily Distracted Memory: Impaired Mood: Anxious Affect: Flat Thought Process & Associations: Loose associations Thought Content: Hallucinations, Delusional Hallucination Type: Auditory Delusion Type: Paranoid Suicidal Ideation: Yes Suicidal Plan: No Suicidal Intention: No Homicidal Ideation: No Homicidal Plan: No Homicidal Intention: No Insight: Fair Judgment: Impulsive Assessment & Plan Problem List: (1) Paranoid schizophrenia, chronic condition ICD Codes: F20.0 - Paranoid schizophrenia Status: Acute Assessment & Plan Estimated LOS: days. 36-year-old male with long history of paranoid schizophrenia, presents under a Martinez act with current auditory hallucinations, paranoid delusions, noncompliant with psychotropic and nonpsychotropic medicines , suicidal ideation and inability to care for himself. Patient is not taking medicines to control his blood sugars, etc. He is felt to be at high risk of self-neglect and self-harm and therefore being admitted for further evaluation and treatment. This physician has ordered a CBC and comprehensive metabolic panel to determine if any infectious process or metabolic process is causing or contributing to his psychosis and depression. Additionally, this physician has ordered thyroid stimulating hormone levels, vitamin B-12 levels and vitamin D levels, as deficiencies in these areas can also contribute to his psychosis and depression. This physician has ordered a hep us consult to assist with management of the patient's underlying medical conditions, including diabetes. An EKG was ordered to determine the patient's cardiac conduction status, as the multiple psychotropic medicines that have been used, can adversely affect the electrical system of his heart. This physician spoke with the patient's nurse, Aneta, regarding his recent behavior. Finally, case management will also be involved to assist with information gathering and disposition planning. Awais Guajardo MD May 15, 2017 14:08
[2017-05-15] MEDS: ARIPiprazole 10 MG TAB PO SCH (14:58)
[2017-05-15] MEDS: metFORMIN HCL 850 MG TAB PO SCH ×2 (15:27→18:19)
--- NOTE | 2017-05-15 16:21 | PD.CONS ---
HPI Service [facility] Hospitalists Consult Requested By Reason for Consult Medical management Primary Care Physician No Primary Care Physician Diagnoses: (1) Paranoid schizophrenia, chronic condition (2) Diabetes mellitus (3) Tobacco abuse History of Present Illness 36-year-old male with past medical history of diabetes, tobacco abuse, schizophrenia, and marijuana abuse. Patient presented to the emergency department under a Martinez act due to auditory hallucinations, and paranoid delusions. Patient has past history of multiple admissions to [facility] in the past with the most recent visit in March 2016. During that admission patient was also admitted under a Martinez act due to psychosis needing medication refills. Patient with a past medical history of diabetes, consult placed to medical management for further on entering of diabetes. Patient seen and examined in room with nurse at bedside. He reports that at home he is on metformin twice a day, denies checking blood sugars. He does endorse polyphasia , polydipsia, and polyuria. Endorses unintentionally lost 20 pounds in the last 6 months. He denies any fevers, chills, nausea, vomiting, shortness of breath or cough. Review of Systems Constitutional: COMPLAINS OF: Weight loss, DENIES: Fever, Chills Endocrine: COMPLAINS OF: Polydipsia, Polyuria, Polyphagia Gastrointestinal: DENIES: Abdominal pain, Black stools, Bloody stools Except as stated in HPI: all other systems reviewed are Neg Past Family Social History Allergies: Coded Allergies: No Known Allergies (Verified Allergy, Unknown, 03/19/17) Past Medical History Schizophrenia Diabetes Past Surgical History Denies past surgical history Reported Medications Reported Meds & Active Scripts Active Novolin R Inj (Insulin Human Regular) 1,000 Unit/10 Ml Vial 5 Units SQ TIDAC 7 Days Glucophage (Metformin HCl) 850 Mg Tab 850 Mg PO BIDPC 7 Days Aripiprazole 10 Mg Tab 20 Mg PO DAILY 7 Days Ergocalciferol 50,000 Unit Cap 50,000 Units PO Q7D 8 Days Active Ordered Medications Active Medications Acetaminophen (Tylenol) 650 mg Q4H PRN PO; Start 05/15/17 at 14:00 Al Hydrox/Mg Hydrox/Simethicone (Mag-Al Plus Susp Liq) 30 ml Q6H PRN PO; Start 05/15/17 at 14:00 Aripiprazole (Abilify) 20 mg DAILY PO Last administered on 05/15/17at 14:58; Admin Dose 20 MG; Start 05/15/17 at 15:00 Diphenhydramine HCl (Benadryl Inj) 50 mg Q6H PRN IM; Start 05/15/17 at 14:00 Diphenhydramine HCl (Benadryl) 50 mg Q6H PRN PO; Start 05/15/17 at 14:00 Insulin Aspart (NovoLOG INJ) 6 units ONCE ONCE SQ Last administered on at 19:45; Admin Dose 6 UNITS; Start 05/14/17 at 19:45; Stop 05/14/17 at 19:46; Status DC Insulin Human Regular (NovoLIN R INJ) 5 units TIDAC SQ; Start 05/15/17 at 17:00 Lorazepam (Ativan Inj) 1 mg Q6H PRN IM; Start 05/15/17 at 14:00 Lorazepam (Ativan) 1 mg Q6H PRN PO; Start 05/15/17 at 14:00 Magnesium Hydroxide (Milk Of ShowMe VIdeoke Liq) 30 ml DAILY PRN PO; Start 05/15/17 at 14:00 Metformin HCl (Glucophage) 850 mg BIDPC PO Last administered on 05/15/17at 15:27; Admin Dose 850 MG; Start 05/15/17 at 15:00 Trazodone HCl (Desyrel) 50 mg HS PRN PO; Start 05/15/17 at 14:00 Family History Patient reports grandmother and mother with history of diabetes Denies cardiac history Social History Tobacco: 1-1/2 PPD of cigarettes Alcohol: 1-2 beers a day, states he does not do this often as he knows this will increase his blood sugars. Illicit drug use: Admits to smoking marijuana several times a day Physical Exam Vital Signs Vital Signs Date Time Temp Pulse Resp B/P (MAP) Pulse Ox O2 Delivery O2 Flow Rate FiO2 05/15/17 10:00 91 18 128/87 (101) 97 Room Air 05/15/17 06:46 104 18 134/87 (103) Room Air 05/15/17 00:58 130 20 142/96 (111) Physical Exam GENERAL: This is a well-nourished, well-developed patient, in no apparent distress. SKIN: No rashes, ecchymoses or lesions. Cool and dry. HEAD: Atraumatic. Normocephalic. EYES: Pupils equal round and reactive. Extraocular motions intact. No scleral icterus. No injection or drainage. ENT: Nose without bleeding, purulent drainage or septal hematoma. Throat without erythema. Uvula midline. Airway patent. NECK: Trachea midline. Supple, nontender. CARDIOVASCULAR: Regular rate and rhythm without murmurs, gallops, or rubs. RESPIRATORY: Clear to auscultation. Breath sounds equal bilaterally. No wheezes , rales, or rhonchi. GASTROINTESTINAL: Abdomen soft, non-tender, nondistended. Normal active bowel sounds in all quadrants. No guarding. MUSCULOSKELETAL: Extremities without clubbing, cyanosis, or edema. No joint tenderness, effusion, or edema noted. NEUROLOGICAL: Awake and alert. Cranial nerves II through XII intact. Motor and sensory grossly within normal limits, equal and bilateral lower extremities. Ambulating without difficulties. 5/5 muscle strength in all muscle groups. Normal speech. Result Diagram: 05/14/17 1350 05/14/17 1350 Assessment and Plan Assessment and Plan 36-year-old male with past medical history of schizophrenia, diabetes admitted to psychiatric unit due to auditory hallucinations as well as paranoid delusions. Medical team consulted to manage diabetes. Schizophrenia - Spoke with nurse who states patient apparently has been off of his medications prior to coming to the hospital. - Patient admitted to psych unit, treatment per primary team DM II, uncontrolled - Patient with history of diabetes reports he on metformin at home - Last hemoglobin A1c checked on 03/14/17 was 8.6. Discussed with patient that for good diabetes control ideal hemoglobin A1c would be less than 7. - Spent brief amount of time discussing with patient long-term consequences of uncontrolled diabetes. Weight loss, polydipsia, polyphagia, and polyuria most likely secondary to uncontrolled sugars. - Patient has been restarted on metformin 850 mg twice a day along with prandial NovoLin 5 units TID. - Will hold off on prandial insulin, continue metformin, start glipizide 5 mg twice a day - Monitor blood sugars ACHS, supplement with NovoLog with ISS - 1800 ADA diet - Hopefully will keep patient on Metformin and work on good dose of glipizide to improve patient compliance. Tobacco abuse Marijuana abuse - Patient briefly counseled on long-term health effects of cigarette and marijuana abuse. - Nicotine patch DVT prophylaxis - Patient ambulating CBC from 05/14/17 reviewed, unremarkable with the exception of slightly elevated neutrophil count of 72.5, and monocyte count of 8.9, CMP reviewed with slight hyponatremia 133, random glucose 312, total bilirubin 2.3. Code Status Full code Discussed Condition With Nurse Rima Sanchez May 15, 2017 16:21
[2017-05-15 16:59] VITALS: BP 163/74; PULSE 91; RESP 19; TEMP 99; O2SAT 98
[2017-05-15] MEDS: INSULIN ASPART SUPPLEMENTAL SCALE SQ SCH ×2 (17:00→21:00)
[2017-05-15] MEDS ORDERED: INSULIN HUMAN REGULAR 1,000 UNITS/10 ML VIAL SQ SCH (17:00)
[2017-05-15] MEDS: glipiZIDE 5 MG TAB PO SCH (18:19)
[2017-05-15] MEDS ORDERED: REMOVE OLD PATCH T-DERMAL SCH (21:00)
[2017-05-16 05:44] VITALS: BP 122/76; PULSE 93; RESP 17; TEMP 97.6; O2SAT 98
[2017-05-16] MEDS: INSULIN ASPART SUPPLEMENTAL SCALE SQ SCH ×4 (08:00→20:33)
[2017-05-16] MEDS: REMOVE OLD PATCH T-DERMAL SCH (09:00)
[2017-05-16] MEDS: NICOTINE 14 MG/24 HR PATCH T-DERMAL SCH (09:00)
[2017-05-16] MEDS: glipiZIDE 5 MG TAB PO SCH ×2 (09:30→17:36)
[2017-05-16] MEDS: ARIPiprazole 10 MG TAB PO SCH (09:30)
[2017-05-16] MEDS: metFORMIN HCL 850 MG TAB PO SCH ×2 (09:31→18:00)
--- NOTE | 2017-05-16 13:58 | HHI.PR ---
Subjective Remarks 36-year-old male with past medical history of schizophrenia, diabetes admitted to psychiatric unit due to auditory hallucinations as well as paranoid delusions. Patient seen and examined in his room. He repots that his blood sugars have been high. Denies any fevers, chills, nausea, vomiting, diarrhea, or headaches. Sates otherwise has been doing fine. Objective Vitals Vital Signs Date Time Temp Pulse Resp B/P (MAP) Pulse Ox O2 Delivery O2 Flow Rate FiO2 05/16/17 05:44 97.6 93 17 122/76 (91) 98 05/15/17 16:59 99.0 91 19 163/74 (103) 98 05/15/17 16:21 Result Diagram: 05/14/17 1350 05/14/17 1350 Objective Remarks GENERAL: This is a well-nourished, well-developed patient, in no apparent distress. SKIN: Cool and dry. HEAD: Atraumatic. Normocephalic. EYES: Pupils equal round and reactive. Extraocular motions intact. No scleral icterus. No injection or drainage. ENT: Nose without bleeding, purulent drainage or septal hematoma. Airway patent. NECK: Trachea midline. Supple, nontender. CARDIOVASCULAR: Regular rate and rhythm without murmurs, gallops, or rubs. RESPIRATORY: Clear to auscultation. Breath sounds equal bilaterally. No wheezes , rales, or rhonchi. GASTROINTESTINAL: Abdomen soft, non-tender, nondistended. Normal active bowel sounds in all quadrants. No guarding. MUSCULOSKELETAL: Extremities without clubbing, cyanosis, or edema. No joint tenderness, effusion, or edema noted. NEUROLOGICAL: Awake and alert. Motor and sensory grossly within normal limits, equal and bilateral lower extremities. Ambulating without difficulties. 5/5 muscle strength in all muscle groups. Normal speech. A/P Problem List: (1) Paranoid schizophrenia, chronic condition ICD Code: F20.0 - Paranoid schizophrenia Status: Acute (2) Diabetes mellitus ICD Code: E11.9 - Type 2 diabetes mellitus without complications Status: Acute (3) Tobacco abuse ICD Code: Z72.0 - Tobacco use Assessment and Plan 36-year-old male with past medical history of schizophrenia, diabetes admitted to psychiatric unit due to auditory hallucinations as well as paranoid delusions. Medical team consulted to manage diabetes. Schizophrenia - Spoke with nurse who states patient apparently has been off of his medications prior to coming to the hospital. - Patient admitted to psych unit, treatment per primary team DM II, uncontrolled - Patient with history of diabetes reports he on metformin at home - Last hemoglobin A1c checked on 03/14/17 was 8.6. - Lunch sugars in the 200s - Continue metformin 850 mg twice, increase Glipizide to 10 mg twice a day - Continue Accu-Cheks with coverage on ISS - 1800 ADA diet - Continue to trend blood sugars, and sitter increasing ISS to medium scale Tobacco abuse Marijuana abuse - Nicotine patch, patient has been refusing. DVT prophylaxis - Patient ambulating Rima Sanchez May 16, 2017 13:58
[2017-05-16 17:00] VITALS: BP 116/72; PULSE 78; RESP 18; TEMP 98.2; O2SAT 98
--- NOTE | 2017-05-16 17:22 | HHI.PYPN ---
Subjective Remarks Patient seen for follow-up, chart reviewed. Discussion she staff reported patient has been visible on unit cooperative and compliant. Patient was found stable was able to cooperative with interview today. Patient as per ED note had been under [place] act by police department after being found agitated and reportedly having abused Flakka prior to his admission. Should upon initial psychiatric evaluation had reported auditory hallucinations and paranoid ideations of others trying to kill him as this was what the voices have been telling him. He also reports having noncompliance of medications as well as recently having spoke Flakka along with suicidal ideations to walk in front of traffic. Patient upon interview states that he had not been taking medications recently and had been experiencing auditory or visual hallucinations. Patient also states admitting to having smoked "that Flock stuff" for the past couple of days prior to admission. Patient states that he would like the risks have some help to address his substance use and was agreeable to inpatient rehabilitation program was psychiatrically stable for discharge. Patient states that he is taking medications here in the unit and has been helping him with the voices. Patient continues to have auditory hallucinations but not command type as well as having had visual hallucinations past couple of days. Patient continues with paranoid ideation stating that he does not feel safe being alone and would like his room moved to a room closer to the nurses station where he can be watched. Patient reports his mood as being okay at this time but reports feeling depressed recently and noted to be tearful during interview was not able to elaborate what has been causing his depression. Patient denies any SI or HI, reports having decreased sleep recently and feeling scared. Review of Systems Except as stated in HPI: all other systems reviewed are Neg Mental Status Examination Appearance: Disheveled Consciousness: Alert Orientation: Person, Place Motor Activity: Normal gait Speech: Hesitant Language: Adequate Fund of Knowledge: Inadequate Attention and Concentration: Easily Distracted Memory: Impaired Mood: Sad, Anxious Affect: Flat, Other (noted to be tearful at one point) Thought Process & Associations: Loose associations Thought Content: Hallucinations, Delusional Hallucination Type: Auditory Delusion Type: Paranoid Suicidal Ideation: Yes (denies at this time) Suicidal Plan: No Suicidal Intention: No Homicidal Ideation: No Homicidal Plan: No Homicidal Intention: No Insight: Fair Judgment: Impulsive Results Vitals/IOs Vital Signs Date Time Temp Pulse Resp B/P (MAP) Pulse Ox O2 Delivery O2 Flow Rate FiO2 05/16/17 05:44 97.6 93 17 122/76 (91) 98 05/15/17 10:00 Room Air Assessment & Plan Problem List: (1) Paranoid schizophrenia, chronic condition ICD Codes: F20.0 - Paranoid schizophrenia Status: Acute Assessment & Plan Patient at this time continues to endorse auditory hallucinations along with some paranoid ideation with depressed mood but denies any suicide ages at this time. Patient has reporting decreased sleep since admission. We will continue Abilify 20 mg by mouth daily, start mirtazapine 50 mg by mouth at bedtime to address depressive symptoms as well as poor sleep. Continue to monitor mood and behavior, continue to encourage patient to dissipating groups and activities while on the unit. Collateral information pending. Discharge planning in progress Justification for Cont. Inpt. At risk for further decompensation if at lower level of care Discharge Planning To be determined Saurabh Simms MD May 16, 2017 17:22
[2017-05-16] MEDS: MIRTAZAPINE 15 MG TAB PO SCH (21:29)
[2017-05-17 06:29] VITALS: BP 122/81; PULSE 91; RESP 16; TEMP 98.1; O2SAT 100
[2017-05-17] MEDS: INSULIN ASPART SUPPLEMENTAL SCALE SQ SCH ×4 (07:25→20:57)
[2017-05-17] MEDS: metFORMIN HCL 850 MG TAB PO SCH ×2 (07:58→17:24)
[2017-05-17] MEDS: glipiZIDE 5 MG TAB PO SCH ×2 (07:58→17:24)
[2017-05-17] MEDS: ARIPiprazole 10 MG TAB PO SCH (08:00)
[2017-05-17] MEDS: NICOTINE 14 MG/24 HR PATCH T-DERMAL SCH (08:31)
[2017-05-17] MEDS: REMOVE OLD PATCH T-DERMAL SCH (08:45)
[2017-05-17 10:12] LABS: AUTOMATED NEUTROPHIL # 4.4 TH/MM3 (1.8-7.7); BASOPHIL % 0.3 % (0.0-2.0); EOSINOPHIL % 0.4 % (0.0-4.0); HEMATOCRIT 46.2 % (39.0-51.0); HEMOGLOBIN 14.9 GM/DL (13.0-17.0); LYMPH % 28.5 % (9.0-44.0); MEAN CELL VOLUME 87.1 FL (80.0-100.0); MEAN CORPUSCULAR HEMOGLOBIN 28.1 PG (27.0-34.0); MEAN CORPUSCULAR HGB CONC 32.2 % (32.0-36.0); MEAN PLATELET VOLUME 8.8 FL (7.0-11.0); MONO % 9.5 % (0.0-8.0); MONOCYTE # 0.7 TH/MM3 (0-0.9); NEUT % 61.3 % (16.0-70.0); PLATELET COUNT 228 TH/MM3 (150-450); RED BLOOD COUNT 5.31 MIL/MM3 (4.50-5.90); RED CELL DISTRIBUTION WIDTH 14.1 % (11.6-17.2); WHITE BLOOD COUNT 7.2 TH/MM3 (4.0-11.0)
[2017-05-17 11:05] LABS: ALBUMIN 3.5 GM/DL (3.4-5.0); AST (GOT) 11 U/L (15-37); BICARBONATE 30.9 MEQ/L (21.0-32.0); BLOOD UREA NITROGEN 19 MG/DL (7-18); CALCIUM 9.7 MG/DL (8.5-10.1); CHLORIDE 99 MEQ/L (98-107); CHOLESTEROL 170 MG/DL (120-200); CREATININE 0.96 MG/DL (0.60-1.30); GLOMERULAR FILTRATION RATE 107 ML/MIN (>89); GLUCOSE,RANDOM 215 MG/DL (74-106); SODIUM (NA) 136 MEQ/L (136-145); TRIGLYCERIDES 141 MG/DL (42-150)
[2017-05-17 11:31] LABS: ALKALINE PHOSPHATASE 86 U/L (45-117); ALT (GPT) 18 U/L (12-78); CHOLESTEROL/ HDL RATIO 2.52 RATIO; HDL CHOLESTEROL 67.2 MG/DL (40.0-60.0); LDL CHOLESTEROL 75 MG/DL (0-99); TOTAL BILIRUBIN ADULT 1.5 MG/DL (0.2-1.0); TOTAL PROTEIN 7.1 GM/DL (6.4-8.2)
--- NOTE | 2017-05-17 16:13 | HHI.PYPN ---
Subjective Remarks Patient seen for follow-up, chart reviewed. Discussion with nursing staff reported that the patient was agreeable to lab work, upset about not having enough food and found grabbing other patient's food which had become irritable and argumentative with staff and given Ativan x 1; continued with vague AH. Patient was found lying on hospital bed, calm and cooperative but noted to be somewhat irritable Patient states that he would like to have more food but was reminded that he needs to be mindful of his diabetes which he acknowledged. Patient reports feeling "better" although affect was irritable, denied any SI and although denied AH did endorse this in the morning. He states that he continues to be interested in sober living facilities and was previously living with a girlfriend which relationship ended recently. Review of Systems Except as stated in HPI: all other systems reviewed are Neg Mental Status Examination Appearance: Disheveled Consciousness: Alert Orientation: Person, Place Motor Activity: Normal gait Speech: Hesitant Language: Adequate Fund of Knowledge: Inadequate Attention and Concentration: Easily Distracted Memory: Impaired Mood: Anxious Affect: Irritable Thought Process & Associations: Loose associations Thought Content: Hallucinations, Delusional Hallucination Type: Auditory Delusion Type: Paranoid Suicidal Ideation: Yes (denies at this time) Suicidal Plan: No Suicidal Intention: No Homicidal Ideation: No Homicidal Plan: No Homicidal Intention: No Insight: Fair Judgment: Impulsive Results Labs labs reviewed Test 05/17/17 09:26 05/17/17 09:50 Blood Urea Nitrogen 19 MG/DL Creatinine 0.96 MG/DL Random Glucose 215 MG/DL Total Protein 7.1 GM/DL Albumin 3.5 GM/DL Calcium Level 9.7 MG/DL Alkaline Phosphatase 86 U/L Aspartate Amino Transf (AST/SGOT) 11 U/L Alanine Aminotransferase (ALT/SGPT) 18 U/L Total Bilirubin 1.5 MG/DL Sodium Level 136 MEQ/L Potassium Level 3.8 MEQ/L Chloride Level 99 MEQ/L Carbon Dioxide Level 30.9 MEQ/L Anion Gap 6 MEQ/L Estimat Glomerular Filtration Rate 107 ML/MIN Triglycerides Level 141 MG/DL Cholesterol Level 170 MG/DL LDL Cholesterol 75 MG/DL HDL Cholesterol 67.2 MG/DL Cholesterol/HDL Ratio 2.52 RATIO Vitamin B12 Level 463 PG/ML 25-Hydroxy Vitamin D Total 12.6 ng/ML Thyroid Stimulating Hormone 3rd Gen 0.626 uIU/ML White Blood Count 7.2 TH/MM3 Red Blood Count 5.31 MIL/MM3 Hemoglobin 14.9 GM/DL Hematocrit 46.2 % Mean Corpuscular Volume 87.1 FL Mean Corpuscular Hemoglobin 28.1 PG Mean Corpuscular Hemoglobin Concent 32.2 % Red Cell Distribution Width 14.1 % Platelet Count 228 TH/MM3 Mean Platelet Volume 8.8 FL Neutrophils (%) (Auto) 61.3 % Lymphocytes (%) (Auto) 28.5 % Monocytes (%) (Auto) 9.5 % Eosinophils (%) (Auto) 0.4 % Basophils (%) (Auto) 0.3 % Neutrophils # (Auto) 4.4 TH/MM3 Lymphocytes # (Auto) 2.0 TH/MM3 Monocytes # (Auto) 0.7 TH/MM3 Eosinophils # (Auto) 0.0 TH/MM3 Basophils # (Auto) 0.0 TH/MM3 CBC Comment DIFF FINAL Differential Comment Vitals/IOs Vital Signs Date Time Temp Pulse Resp B/P (MAP) Pulse Ox O2 Delivery O2 Flow Rate FiO2 05/17/17 06:29 98.1 91 16 122/81 (95) 100 05/15/17 10:00 Room Air Intake and Output 05/17/17 05/17/17 05/18/17 08:00 16:00 00:00 Intake Total 240 ml Balance 240 ml Assessment & Plan Problem List: (1) Paranoid schizophrenia, chronic condition ICD Codes: F20.0 - Paranoid schizophrenia Status: Acute Assessment & Plan Patient noted to be irritable, inappropriate with others during meals as he was found taking other patients' food. Will increase Abilify to 25mg PO HS, continue mirtazapine 15mg PO HS. Patient recently moved to a more acute unit for further monitoring of mood and behavior. Labs reviewed. Discharge planning in progress. Justification for Cont. Inpt. At risk for further decompensation at lower level of care. Discharge Planning Possibly discharge to sober living facility Saurabh Simms MD May 17, 2017 16:13
[2017-05-17 16:29] LABS: HEMOGLOBIN A1C 9.9 % (4.3-6.0)
--- NOTE | 2017-05-17 16:53 | HHI.PR ---
Subjective Remarks 36-year-old male with past medical history of schizophrenia, diabetes admitted to psychiatric unit due to auditory hallucinations as well as paranoid delusions. Spoke with nurse who tells me that patient has been moved over to 2700 unit due to aggression. She reports that patient was being aggressive towards other patients while having meals as he verbalized the fact that he was not getting enough food. Patient was also making threats towards others. He is seen and examined in his room with staff member present. He reports that he was getting a very small hamburger and states "what is second to do for me". He would like to have more food with meals. He denies any fevers, chills, nausea, vomiting, diarrhea. He is aware that we are still trying to manage his blood sugars. Objective Vitals Vital Signs Date Time Temp Pulse Resp B/P (MAP) Pulse Ox O2 Delivery O2 Flow Rate FiO2 05/17/17 16:51 05/17/17 06:29 98.1 91 16 122/81 (95) 100 05/16/17 17:00 98.2 78 18 116/72 (87) 98 I/O 05/16/17 05/16/17 05/16/17 05/17/17 05/17/17 05/17/17 07:00 15:00 23:00 07:00 15:00 23:00 Intake Total 240 ml Balance 240 ml Intake Oral 240 ml Result Diagram: 05/17/17 0950 05/17/17 0926 Objective Remarks GENERAL: This is a well-nourished, well-developed patient, in no apparent distress. SKIN: Cool and dry. HEAD: Atraumatic. Normocephalic. EYES: Pupils equal round and reactive. Extraocular motions intact. No scleral icterus. No injection or drainage. ENT: Nose without bleeding, purulent drainage or septal hematoma. Airway patent. NECK: Trachea midline. Supple, nontender. CARDIOVASCULAR: Regular rate and rhythm without murmurs, gallops, or rubs. RESPIRATORY: Clear to auscultation. Breath sounds equal bilaterally. No wheezes , rales, or rhonchi. GASTROINTESTINAL: Abdomen soft, non-tender, nondistended. Normal active bowel sounds in all quadrants. No guarding. MUSCULOSKELETAL: Extremities without clubbing, cyanosis, or edema. No joint tenderness, effusion, or edema noted. NEUROLOGICAL: Awake and alert. Motor and sensory grossly within normal limits, equal and bilateral lower extremities. Ambulating without difficulties. 5/5 muscle strength in all muscle groups. Normal speech. A/P Problem List: (1) Paranoid schizophrenia, chronic condition ICD Code: F20.0 - Paranoid schizophrenia Status: Acute (2) Diabetes mellitus ICD Code: E11.9 - Type 2 diabetes mellitus without complications Status: Acute (3) Tobacco abuse ICD Code: Z72.0 - Tobacco use Assessment and Plan 36-year-old male with past medical history of schizophrenia, diabetes admitted to psychiatric unit due to auditory hallucinations as well as paranoid delusions. Medical team consulted to manage diabetes. Schizophrenia - Spoke with nurse who states patient apparently has been off of his medications prior to coming to the hospital. - Patient admitted to psych unit, treatment per primary team - Transfer to 2700 unit due to aggression towards other patients DM II, uncontrolled - Patient with history of diabetes reports he on metformin at home - Last hemoglobin A1c checked on 03/14/17 was 8.6. - Blood sugars today better, morning blood sugar 206, noon 177, afternoon 166. Will add 5 units of Levemir at bedtime - Continue metformin 850 mg twice, and Glipizide to 10 mg twice a day - Continue Accu-Cheks with coverage on ISS - 1800 ADA diet, patient requesting more food. Psychiatry has consulted dietitian for further recommendations. - Continue to trend blood sugars Tobacco abuse Marijuana abuse - Nicotine patch, patient has been refusing. DVT prophylaxis - Patient ambulating Rima Sanchez May 17, 2017 16:53
[2017-05-17] MEDS ORDERED: PILL SPLITTER OTHER PRN (18:30)
[2017-05-17] MEDS: MIRTAZAPINE 15 MG TAB PO SCH (20:44)
[2017-05-17] MEDS ORDERED: INSULIN DETEMIR 100 UNITS/ML VIAL SQ SCH (21:00)
[2017-05-18 05:55] VITALS: BP 128/76; PULSE 78; RESP 18; TEMP 98; O2SAT 97
[2017-05-18] MEDS: INSULIN ASPART SUPPLEMENTAL SCALE SQ SCH ×2 (08:00→11:26)
[2017-05-18] MEDS: NICOTINE 14 MG/24 HR PATCH T-DERMAL SCH (09:00)
[2017-05-18] MEDS: REMOVE OLD PATCH T-DERMAL SCH (09:00)
[2017-05-18] MEDS ORDERED: ARIPiprazole 10 MG TAB PO SCH (09:00)
[2017-05-18] MEDS: metFORMIN HCL 850 MG TAB PO SCH (09:28)
[2017-05-18] MEDS: glipiZIDE 5 MG TAB PO SCH (09:28)
[2017-05-18] MEDS ORDERED: LEVEMIR SQ (14:52)
[2017-05-18] MEDS ORDERED: METF850 PO (14:52)
[2017-05-18] MEDS ORDERED: MIRTA15 PO (14:52)
[2017-05-18] MEDS ORDERED: ARIP1TAB12 PO (14:52)
[2017-05-18] MEDS ORDERED: GLIP5 PO (14:52)
--- NOTE | 2017-05-18 16:14 | HHI.DS ---
Psychiatry Discharge Summary Inpatient Psychiatric care?: Yes Advance Directive: No Reason Not Provided: refused Mental Health AdvanceDirective: No Health Care Proxy: No Admission Admission Date May 15, 2017 at 13:48 Admission Diagnosis: (1) Paranoid schizophrenia, chronic condition ICD Code: F20.0 - Paranoid schizophrenia Brief History 36-year-old male presents under a Martinez act with auditory hallucinations, paranoid delusions that others are trying to kill him and inability to care for himself. Patient is known to this physician and the staff in the Department of psychiatry, here at [facility]. He has been admitted here previously and carry diagnoses of schizophrenia, schizoaffective disorder, etc. He has been noncompliant with his psychotropic medicines again, prior to this admission. He has a pattern of being noncompliant. Possibly as a result, the patient is now complaining of auditory hallucinations, telling him others are trying to kill him. This has become a delusional belief as well. The patient has also been noncompliant with his nonpsychotropic physical medications, including those to assist with blood sugar control, etc. Upon interview, the patient demonstrates looseness of associations and at times is nonsensical. However, he does report auditory hallucinations. He does report feelings that others are going to kill him. He does report that his family will not support him in any way. Finally, he does provide a history that he is not caring for himself, his diabetes, etc. He admits to smoking flocca but this is not detectable on a drug screen. He also admits to suicidal ideation and states he could walk in front of traffic. Tobacco Use In Past 30 Days: No Tobacco Past 30 Days Alcohol Use: Never Hospital Course Patient is a 36 y/o man, single, undomiciled, unemployed on [employer] , with a past psychiatric history of schizophrenia, prior psychiatric admissions, no prior suicide attempts with substance history significant for polysubstance use, who was admitted to the inpatient psychiatry unit for recent report of auditory hallucinations and paranoid delusions that others are trying to kill him and suicidal ideations in the context of recent flakka use and was subsequently admitted to the inpatient psychiatry unit for further evaluation and management. Patient was continued on abilify 20mg PO daily and increased to 25mg PO daily along with starting miratazapine 15mg PO HS for depressive symptoms. Patient continued to tolerate treatment well, had cessation of psychotic symptoms and no longer endorsed feeing depressed nor having suicidal ideations. Patient requested discharge and despite recommendations for further hospitalization he did not meet criteria for involuntary admission. Patient was provided with psychoeducation over abstinence from substance use along with recommendation to [facility] outpatient mental health follow up which he agreed to as well as referral to sober living facilities. Collateral was obtained from patients friend who agreed to have patient discharged to her residence. Patient and family agree with plan. Patient advised to return to ED or call 911 in case of emergency. Results Blood Pressure 128 / 76 Vital Signs Date Time Temp Pulse Resp B/P (MAP) Pulse Ox O2 Delivery O2 Flow Rate FiO2 05/18/17 05:55 98.0 78 18 128/76 (93) 97 05/15/17 10:00 Room Air Laboratory Tests Test 05/17/17 09:26 05/17/17 09:50 Blood Urea Nitrogen 19 MG/DL (7-18) Random Glucose 215 MG/DL (74-106) Aspartate Amino Transf (AST/SGOT) 11 U/L (15-37) Total Bilirubin 1.5 MG/DL (0.2-1.0) Hemoglobin A1c 9.9 % (4.3-6.0) HDL Cholesterol 67.2 MG/DL (40.0-60.0) 25-Hydroxy Vitamin D Total 12.6 ng/ML (30-100) Monocytes (%) (Auto) 9.5 % (0.0-8.0) Laboratory Results Test 05/17/17 09:26 Cholesterol Level 170 MG/DL (120-200) HDL Cholesterol 67.2 MG/DL (40.0-60.0) Hemoglobin A1c 9.9 % (4.3-6.0) LDL Cholesterol 75 MG/DL (0-99) Triglycerides Level 141 MG/DL (42-150) Summary of Procedures None Pending results at discharge: No Medications # of Antipsychotic meds at D/C: 1 Approp Antipsych med options 1 - Minimum of three failed multiple trials of monotherapy. 2 - Documented plan to taper to monotherapy due to previous use of multiple meds OR cross-taper in progress at D/C. 3 - Documentation of augmentation of Clozapine. 4 - Justification other than those listed in allowable values 1-3, document here : Discharge Discharge Date: May 18, 2017 Discharge Diagnosis: (1) Paranoid schizophrenia, chronic condition ICD Code: F20.0 - Paranoid schizophrenia Status: Acute Pt Condition on Discharge: Stable Discharge Disposition: Discharge Home Discharge Instructions Diet Instructions: Diabetic Diet Activities you can perform: Regular-No Restrictions Scheduled Appointment: Casimiro Jimenez Li Appointment Date: May 18, 2017 Discharge Time > 30 minutes Mental Status Examination Appearance: Disheveled Consciousness: Alert Orientation: Person, Place Motor Activity: Normal gait Speech: Hesitant Language: Adequate Fund of Knowledge: Inadequate Attention and Concentration: Adequate Memory: Unremarkable Mood: Appropriate Affect: Appropriate Thought Process & Associations: Intact, Linear Thought Content: Appropriate Hallucination Type: None, Auditory Delusion Type: None Suicidal Ideation: No (denies at this time) Suicidal Plan: No Suicidal Intention: No Homicidal Ideation: No Homicidal Plan: No Homicidal Intention: No Insight: Fair Judgment: Impulsive Discharge/Advance Care Plan Health Problems: (1) Paranoid schizophrenia, chronic condition Goals to promote your health * To prevent worsening of your condition and complications * To maintain your health at the optimal level Directions to meet your goals Take your medications as prescribed Follow your dietary instruction Follow activity as directed Keep your appointments as scheduled Take your immunizations and boosters as scheduled If your symptoms worsen call your PCP, if no PCP go to Urgent Care Center or Emergency Room For 24 questions related to your inpatient stay or results of tests pending at discharge, please contact Dr. Saurabh Simms at Smoking is Dangerous to Your Health. Avoid second hand smoking Saurabh Simms MD May 18, 2017 16:14
== END 2017-05-18 15:25 | disposition home or self-care (01) | DRG 885 ==
LOC: NEPD 13:23 → NEDA 05-15 13:48 → H270 05-15 16:35 → H260 05-15 22:00 → H270 05-17 15:50
PROVIDERS: ADMIT Student in an Organized Health Care Education/Training Program; ATTEND Student in an Organized Health Care Education/Training Program
DX: F20.0 Paranoid schizophrenia (principal); R45.851 Suicidal ideations; E11.65 Type 2 diabetes mellitus with hyperglycemia; Z91.14 Patient's other noncompliance with medication regimen; Z91.19 Patient's noncompliance with other medical treatment and regimen; F10.10 Alcohol abuse, uncomplicated; F19.10 Other psychoactive substance abuse, uncomplicated; Z72.0 Tobacco use; F12.10 Cannabis abuse, uncomplicated; Z79.84 Long term (current) use of oral hypoglycemic drugs
CPT/HCPCS: 80053; 80061; 80307; 82306; 82607; 82948; 83036; 84443; 85025; 99285; J1815

== ENCOUNTER 2017-06-04 19:07 | Emergency (ER) | payer OTHER ==
[2017-06-04 20:08] LABS: AUTOMATED NEUTROPHIL # 8.9 TH/MM3 (1.8-7.7); BASOPHIL % 0.1 % (0.0-2.0); EOSINOPHIL # 0.1 TH/MM3 (0-0.4); EOSINOPHIL % 0.5 % (0.0-4.0); HEMATOCRIT 36.5 % (39.0-51.0); HEMO FLAGS DIFF FINAL; HEMOGLOBIN 11.8 GM/DL (13.0-17.0); LYMPH % 20.9 % (9.0-44.0); LYMPHOCYTE # 2.7 TH/MM3 (1.0-4.8); MEAN CELL VOLUME 87.6 FL (80.0-100.0); MEAN CORPUSCULAR HEMOGLOBIN 28.3 PG (27.0-34.0); MEAN CORPUSCULAR HGB CONC 32.4 % (32.0-36.0); MEAN PLATELET VOLUME 8.3 FL (7.0-11.0); MONO % 10.9 % (0.0-8.0); MONOCYTE # 1.4 TH/MM3 (0-0.9); NEUT % 67.6 % (16.0-70.0); PLATELET COUNT 204 TH/MM3 (150-450); RED BLOOD COUNT 4.16 MIL/MM3 (4.50-5.90); WHITE BLOOD COUNT 13.2 TH/MM3 (4.0-11.0)
[2017-06-04 20:18] LABS: APTT (PATIENT) 23.1 SEC (24.3-30.1); PROTHROMBIN TIME - PATIENT 9.8 SEC (9.8-11.6)
[2017-06-04 20:29] LABS: ALBUMIN 2.8 GM/DL (3.4-5.0); ANION GAP 9 MEQ/L (5-15); AST (GOT) 11 U/L (15-37); BICARBONATE 22.3 MEQ/L (21.0-32.0); BLOOD UREA NITROGEN 10 MG/DL (7-18); CALCIUM 8.2 MG/DL (8.5-10.1); CHLORIDE 108 MEQ/L (98-107); GLOMERULAR FILTRATION RATE 133 ML/MIN (>89); GLUCOSE,RANDOM 226 MG/DL (74-106); POTASSIUM 3.2 MEQ/L (3.5-5.1); SODIUM (NA) 139 MEQ/L (136-145)
[2017-06-04 20:30] LABS: ALT (GPT) 14 U/L (12-78)
[2017-06-04 20:33] LABS: ALKALINE PHOSPHATASE 88 U/L (45-117); TOTAL BILIRUBIN ADULT 0.5 MG/DL (0.2-1.0); TOTAL PROTEIN 6.3 GM/DL (6.4-8.2); TROPONIN I LESS THAN 0.02 NG/ML (0.02-0.05)
[2017-06-04] MEDS: KETOROLAC TROMETHAMINE 30 MG/ML (IVP) VIAL IV PUSH (20:40)
[2017-06-04] MEDS: LEVOFLOXACIN 750 MG PREMIX INJ 150 ML IV (20:41)
[2017-06-04] MEDS: POTASSIUM CHLORIDE 20 MEQ CONTROLLED RELEASE TAB PO (20:41)
[2017-06-04] MEDS: SODIUM CHLOR 0.9% 1000 ML INJ 1,000 ML IV (20:45)
[2017-06-04 20:57] LABS: CREATINE KINASE 59 U/L (39-308)
== END 2017-06-05 02:38 | disposition home or self-care (01) ==
LOC: NEPC 06-05 02:38
DX: J18.9 Pneumonia, unspecified organism (principal); J43.9 Emphysema, unspecified; F17.200 Nicotine dependence, unspecified, uncomplicated; F12.90 Cannabis use, unspecified, uncomplicated; E11.9 Type 2 diabetes mellitus without complications; Z79.4 Long term (current) use of insulin
CPT/HCPCS: 71045; 80053; 82550; 84484; 85025; 85610; 85730; 87804; 87804-59; 93005; 96361; 96374; 96375; 99285-25

== ENCOUNTER 2018-03-03 13:16 | Inpatient (IN) ==
[2018-03-03 15:51] LABS: Baso % (Auto) 0.5 % (0.0-2.0); Eos % (Auto) 0.3 % (0.0-4.0); Hematocrit 44.2 % (39.0-51.0); Hemoglobin 14.8 gm/dL (13.0-17.0); Lymph # (Auto) 1.8 th/mm3 (1.0-4.8); Mean Corpuscular HGB Conc 33.6 % (32.0-36.0); Mean Corpuscular Hemoglobin 30.9 pg (27.0-34.0); Mean Corpuscular Volume 91.8 fL (80.0-100.0); Mean Platelet Volume 9.2 fL (7.0-11.0); Mono % (Auto) 12.3 % (0.0-8.0); Neut # (Auto) 5.1 th/mm3 (1.8-7.7); Neut % (Auto) 63.9 % (16.0-70.0); Platelet Count 206 th/mm3 (150-450); Red Blood Count 4.81 mil/mm3 (4.50-5.90); Red Cell Distribution Width 13.3 % (11.6-17.2)
[2018-03-03 16:07] LABS: Alanine Aminotransferase 20 U/L (12-78); Anion Gap 11 meq/L (5-15); Aspartate Aminotransferase 16 U/L (15-37); Blood Urea Nitrogen 9 mg/dL (7-18); Calcium 8.8 mg/dL (8.5-10.1); Carbon Dioxide 24.3 meq/L (21.0-32.0); Chloride 97 meq/L (98-107); Glomerular Filtration Rate Greater Than 89 mL/min (>89); Glucose,Random 290 mg/dL (74-106); Potassium 3.4 meq/L (3.5-5.1); Sodium 132 meq/L (136-145)
[2018-03-03 16:17] LABS: Alkaline Phosphatase 72 U/L (45-117); Total Protein 7.7 g/dL (6.4-8.2)
[2018-03-03 17:02] LABS: Amphetamine Screen,Urine Neg (Neg); Barbiturate Screen,Urine Neg (Neg); Cannabinoid Screen,Urine Neg (Neg); Cocaine Screen,Urine Pos (Neg)
[2018-03-03 17:05] LABS: Opiate Screen,Urine Neg (Neg)
--- NOTE | 2018-03-03 19:10 | ED ---
HPI General Chief Complaint: Psychiatric Symptoms Stated Complaint: Abdominal Pain Time Seen by Provider: 03/03/18 13:40 Source: patient Mode of arrival: ambulatory Limitations: no limitations History of Present Illness HPI Narrative: 37-year-old male requesting psychiatric evaluation. Patient called the police today requesting to be taken to the hospital for psychiatric evaluation. Patient admits to taking petra recently. Patient denies any headache. Patient denies any chest pain or shortness of breath. Patient denies abdominal pain. Patient denies any focal weakness or numbness of extremity. MD complaint: Reports altered mental status Related Data Home Medications Medication Instructions Recorded Confirmed No Known Home Medications 03/03/18 03/03/18 Allergies Allergy/AdvReac Type Severity Reaction Status Date / Time No Known Allergies Allergy Unknown Uncoded 06/04/17 19:21 Review of Systems ROS: all other systems reviewed are negative PMFSH Medical History Medical History Patient denies medical problems (Acute) Social History Social History Smoking Status: Current every day smoker Tobacco Type: Cigarettes How Often Do You Have a Drink Containing Alcohol: 2 to 4 times a month Immunization History Tetanus Immunization: Unable to Assess Exam Narrative Exam Narrative: GENERAL: Well-nourished, well-developed patient. SKIN: Focused skin assessment warm/dry. HEAD: Normocephalic. EYES: No scleral icterus. No injection or drainage. NECK: Supple, trachea midline. No JVD or lymphadenopathy. CARDIOVASCULAR: Regular rate and rhythm without murmurs, gallops, or rubs. RESPIRATORY: Breath sounds equal bilaterally. No accessory muscle use. GASTROINTESTINAL: Abdomen soft, non-tender, nondistended. MUSCULOSKELETAL: No cyanosis, or edema. BACK: Nontender without obvious deformity. No CVA tenderness. Patient's agitated. Patient moves all extremity well. No obvious focal neurologic deficit. Course Initial Documented Vital Signs Temperature 98.5 F 03/03/18 14:00 Pulse Rate 89 03/03/18 14:00 Respiratory Rate 20 03/03/18 14:00 Blood Pressure 132/68 03/03/18 14:00 Last Documented Vital Signs Temperature 98.5 F 03/03/18 14:00 Pulse Rate 89 03/03/18 14:00 Respiratory Rate 20 03/03/18 14:00 Blood Pressure 132/68 03/03/18 14:00 Medical Decision Making MDM Narrative Medical decision making narrative: 19 10 PM. Patient is medically clear for psychiatric evaluation. Patient was agitated. Patient was given Ativan 2 mg IV. Medical Screen Exam Complete: Yes Emergency Medical Condition: Yes Lab Data Lab results reviewed: Yes I reviewed the patient's lab results. Result diagrams: 03/03/18 14:32 03/03/18 14:32 Lab Results 03/03/18 03/03/18 03/03/18 Range/Units 14:32 14:32 14:32 WBC 8.0 (4.0-11.0) th/mm3 RBC 4.81 (4.50-5.90) mil/mm3 Hgb 14.8 (13.0-17.0) gm/dL Hct 44.2 (39.0-51.0) % MCV 91.8 (80.0-100.0) fL MCH 30.9 (27.0-34.0) pg MCHC 33.6 (32.0-36.0) % RDW 13.3 (11.6-17.2) % Plt Count 206 (150-450) th/mm3 MPV 9.2 (7.0-11.0) fL Neut % (Auto) 63.9 (16.0-70.0) % Lymph % (Auto) 23.0 (9.0-44.0) % [place] % (Auto) 12.3 H (0.0-8.0) % Eos % (Auto) 0.3 (0.0-4.0) % Baso % (Auto) 0.5 (0.0-2.0) % Neut # (Auto) 5.1 (1.8-7.7) th/mm3 Lymph # (Auto) 1.8 (1.0-4.8) th/mm3 [place] # (Auto) 1.0 H (0.0-0.9) th/mm3 Eos # (Auto) 0.0 (0.0-0.4) th/mm3 Baso # (Auto) 0.0 (0.0-0.2) th/mm3 WBC Differential . Differential Comment Auto diff final Sodium 132 L (136-145) meq/L Potassium 3.4 L (3.5-5.1) meq/L Chloride 97 L (98-107) meq/L Carbon Dioxide 24.3 (21.0-32.0) meq/L Anion Gap 11 (5-15) meq/L BUN 9 (7-18) mg/dL Creatinine 1.03 (0.60-1.30) mg/dL Estimated GFR Greater than 89 (>89) mL/min Random Glucose 290 H (74-106) mg/dL Calcium 8.8 (8.5-10.1) mg/dL Total Bilirubin 2.0 H (0.2-1.0) mg/dL AST 16 (15-37) U/L ALT 20 (12-78) U/L Alkaline Phosphatase 72 (45-117) U/L Total Protein 7.7 (6.4-8.2) g/dL Albumin 4.0 (3.4-5.0) g/dL TSH 0.500 (0.358-3.740) uIU/mL Salicylates 4.4 (2.8-20.0) mg/dL Urine Opiates Screen (Neg) Acetaminophen Less than 2.0 L (10.0-30.0) mcg/mL Ur Barbiturates Screen (Neg) Ur Amphetamines Screen (Neg) U Benzodiazepines Scrn (Neg) Urine Cocaine Screen (Neg) U Cannabinoids Screen (Neg) Serum Alcohol Less than 3 (0-5) mg/dL 03/03/18 Range/Units 14:40 WBC (4.0-11.0) th/mm3 RBC (4.50-5.90) mil/mm3 Hgb (13.0-17.0) gm/dL Hct (39.0-51.0) % MCV (80.0-100.0) fL MCH (27.0-34.0) pg MCHC (32.0-36.0) % RDW (11.6-17.2) % Plt Count (150-450) th/mm3 MPV (7.0-11.0) fL Neut % (Auto) (16.0-70.0) % Lymph % (Auto) (9.0-44.0) % [place] % (Auto) (0.0-8.0) % Eos % (Auto) (0.0-4.0) % Baso % (Auto) (0.0-2.0) % Neut # (Auto) (1.8-7.7) th/mm3 Lymph # (Auto) (1.0-4.8) th/mm3 [place] # (Auto) (0.0-0.9) th/mm3 Eos # (Auto) (0.0-0.4) th/mm3 Baso # (Auto) (0.0-0.2) th/mm3 WBC Differential Differential Comment Sodium (136-145) meq/L Potassium (3.5-5.1) meq/L Chloride (98-107) meq/L Carbon Dioxide (21.0-32.0) meq/L Anion Gap (5-15) meq/L BUN (7-18) mg/dL Creatinine (0.60-1.30) mg/dL Estimated GFR (>89) mL/min Random Glucose (74-106) mg/dL Calcium (8.5-10.1) mg/dL Total Bilirubin (0.2-1.0) mg/dL AST (15-37) U/L ALT (12-78) U/L Alkaline Phosphatase (45-117) U/L Total Protein (6.4-8.2) g/dL Albumin (3.4-5.0) g/dL TSH (0.358-3.740) uIU/mL Salicylates (2.8-20.0) mg/dL Urine Opiates Screen Neg (Neg) Acetaminophen (10.0-30.0) mcg/mL Ur Barbiturates Screen Neg (Neg) Ur Amphetamines Screen Neg (Neg) U Benzodiazepines Scrn Neg (Neg) Urine Cocaine Screen Pos H (Neg) U Cannabinoids Screen Neg (Neg) Serum Alcohol (0-5) mg/dL Discharge Plan Discharge Disposition Patient Disposition: 30 Still Patient Physicians Team ED Provider: Mike Kebede Primary Care Provider: UNKNOWN, Rxs /Orders / Referrals /Forms Prescriptions: No Action No Known Home Medications RF: 0 Status ED Status: Medically Cleared
--- NOTE | 2018-03-04 12:30 | P.CONPSY ---
Provisional Diagnosis Admission Date: March 03, 2018 13:16 Sunray I.: Substance induced mood disorder, Cocaine and amphetamine use disorder, Hx Schizophrenia Sunray II.: Deferred History of Present Illness Service: ER Primary Care Provider: UNKNOWN History of Present Illness: The patient is a 27-year-old AA man, single, homeless, with a psychiatric history of schizophrenia, methamphetamines, Petra and cocaine use disorder, well known by the service, previous psychiatric hospitalizations, with medical history of diabetes, who came to the ER requesting psychiatric evaluation. Patient called the police today requesting to be taken to the hospital for psychiatric evaluation. Patient admits to taking petra recently. He is positive for cocaine. On my psychiatric evaluation I find a patient that is quite disorganized, incoherent, very poor historian, agitated. He says he has been using petra and cocaine constituently for the last days. He has been paranoid thinking people are truing to hurt him. 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 DRUG SCREEN POSITIVE FOR COCAINE - Immunization History Tetanus Immunization: Unable to Assess Medications and Allergies Allergies Allergy/AdvReac Type Severity Reaction Status Date / Time No Known Allergies Allergy Unknown Uncoded 06/04/17 19:21 Home Medications Medication Instructions Recorded Confirmed Type No Known Home Medications 03/03/18 03/03/18 History Exam Vital signs: Vital Signs 03/03/18 14:00 Temperature 98.5 F Pulse Rate 89 Respiratory Rate 20 Blood Pressure 132/68 Mental Status Examination Appearance: Dirty, Disheveled Consciousness: Alert Orientation: x4 Motor Activity: Normal gait Speech: Unremarkable Language: Adequate Fund of Knowledge: Adequate Attention and Concentration: Adequate Memory: Unremarkable Mood: Oppositional Affect: Irritable Thought Process & Associations: Loose associations Thought Content: Appropriate Hallucination Type: None Delusion Type: Paranoid Suicidal Ideation: No Suicidal Plan: No Suicidal Intention: No Homicidal Ideation: No Homicidal Plan: No Homicidal Intention: No Insight: Poor Judgment: Poor Assessment and Plan - Assessment (1) Substance-induced psychotic disorder Code(s): F19.959 - Other psychoactive substance use, unspecified with psychoactive substance-induced psychotic disorder, unspecified Status: Acute - Plan Plan: On psychiatric Evaluation today patient is paranoid, internally preoccupied, agitated, incoherent. He admitted the recent used of cocaine and Petra recently. He does have history of schizophrenia. Will keep for observation and longitudinal observation, to rule out SIP vs primary psychinosis. No medications at the moment. Justification for Continued Inpatient Stay: Unclear if admission needed
[2018-03-04] MEDS ORDERED: Aluminum/Magnesium/Simethacone Susp 30 ML UDC PO PRN (13:45)
[2018-03-04] MEDS ORDERED: Bisacodyl 10 MG Supp RECTAL PRN (13:45)
--- NOTE | 2018-03-04 13:50 | P.HPPSY ---
Provisional Diagnosis Admission Date: March 03, 2018 13:16 [place] I.: Substance induced mood disorder, Cocaine and amphetamine use disorder, Hx Schizophrenia [place] II.: Deferred Competence Certification of Person's Competence To Provide Express and Informed Consent I have personally examined Jovan Cristina, a person being served at [facility] on, March 04, 2018 1347. Express and informed consent means consent voluntarily given in writing, by a competent person, after sufficient explanation and disclosure of the subject matter involved to enable the person to make a knowing and willful decision without any element of force, fraud, deceit, duress, or other form of constraint or coercion. This person is 18 years of age or older, is not now known to be incompetent to consent to treatment with a guardian advocate, and does not have a health care surrogate or proxy currently making medical treatment decisions. I have found this person to be one of the following: [] Competent to provide express and informed consent, as defined above, for voluntary admission to this facility and is competent to provide express and informed consent for treatment. He/she has the consistent capacity to make well reasoned, willful, and knowing decisions concerning his or her medical or mental health treatment. The person fully and consistently understands the purpose of the admission for examination/placement and is fully capable of personally exercising all rights [place] [] Incompetent to provide express and informed consent to voluntary admission, and this is incompetent to provide express and informed consent to treatment. The person must be transferred to involuntary status and a petition for a guardian advocate filed with the Circuit Court. [x] Refusing to provide express and informed consent to voluntary admission but is competent to provide express and informed consent for treatment. The person must be discharged or transferred to involuntary status. Form shall be completed within 24 hours of a person's arrival at the receiving facility and filed in the clinical record of each person: 1. Admitted on a voluntary basis 2. Permitted to provide express and informed consent to his/her own treatment 3. Allowed to transfer from involuntary to voluntary status 4. Prior to permitting a person to consent to his or her own treatment after having been previously found incompetent to consent to treatment. History of Present Illness Capacity: Has capacity History of Present Illness: 8:30AM The patient is a 27-year-old AA man, single, homeless, with a psychiatric history of schizophrenia, methamphetamines, Petra and cocaine use disorder, well known by the service, previous psychiatric hospitalizations, with medical history of diabetes, who came to the ER requesting psychiatric evaluation. Patient called the police today requesting to be taken to the hospital for psychiatric evaluation. Patient admits to taking petra recently. He is positive for cocaine. On my psychiatric evaluation I find a patient that is quite disorganized, incoherent, very poor historian, agitated. He says he has been using petra and cocaine constituently for the last days. He has been paranoid thinking people are truing to hurt him. 2:00 AM Patient is reevaluated He continues to be very disorganized, now adding he is hearing voices, but does not elaborate about the content. He seems to be still paranoid and internally preoccupied. Also very unpredictable and potentially aggressive. He does deny suicidal and homicidal ideation, he denies visual hallucinations. He is agitated, but he is not aggressive. 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 DRUG SCREEN POSITIVE FOR COCAINE - Immunization History Tetanus Immunization: Unable to Assess Medications and Allergies Active Medications: Active Medications Al Hydrox/Mg Hydrox/Simethicone (Mag-Al Plus Susp Liq) 30 ml PO Q6H PRN PRN Reason: DYSPEPSIA Al Hydroxide/Mg Hydroxide (Milk Of Magnesia Liq) 30 ml PO Q12H PRN PRN Reason: Mild Constipation Bisacodyl (Dulcolax Supp) 10 mg RECTAL DAILY PRN PRN Reason: SEVERE CONSITIPATION Lactulose (Lactulose Liq) 30 ml PO DAILY PRN PRN Reason: SEVERE CONSITIPATION Senna/Docusate Sodium (Liberty-Colace) 1 tab PO BID KEVAN Sennosides (Senokot) 17.2 mg PO Q12H PRN PRN Reason: Moderate Constipation Allergies Allergy/AdvReac Type Severity Reaction Status Date / Time No Known Allergies Allergy Unknown Uncoded 06/04/17 19:21 Home Medications Medication Instructions Recorded Confirmed Type No Known Home Medications 03/03/18 03/03/18 History Results - Labs CBC & Chem 7: 03/03/18 14:32 03/03/18 14:32 Labs: Laboratory Results - last 24 hr 03/03/18 03/03/18 03/03/18 14:32 14:32 14:32 WBC 8.0 RBC 4.81 Hgb 14.8 Hct 44.2 MCV 91.8 MCH 30.9 MCHC 33.6 RDW 13.3 Plt Count 206 MPV 9.2 Neut % (Auto) 63.9 Lymph % (Auto) 23.0 [place] % (Auto) 12.3 H Eos % (Auto) 0.3 Baso % (Auto) 0.5 Neut # (Auto) 5.1 Lymph # (Auto) 1.8 [place] # (Auto) 1.0 H Eos # (Auto) 0.0 Baso # (Auto) 0.0 WBC Differential . Differential Comment Auto diff final Sodium 132 L Potassium 3.4 L Chloride 97 L Carbon Dioxide 24.3 Anion Gap 11 BUN 9 Creatinine 1.03 Estimated GFR Greater than 89 POC Glucose Random Glucose 290 H Calcium 8.8 Total Bilirubin 2.0 H AST 16 ALT 20 Alkaline Phosphatase 72 Total Protein 7.7 Albumin 4.0 TSH 0.500 Salicylates 4.4 Urine Opiates Screen Acetaminophen Less than 2.0 L Ur Barbiturates Screen Ur Amphetamines Screen U Benzodiazepines Scrn Urine Cocaine Screen U Cannabinoids Screen Serum Alcohol Less than 3 03/03/18 03/03/18 14:40 21:34 WBC RBC Hgb Hct MCV MCH MCHC RDW Plt Count MPV Neut % (Auto) Lymph % (Auto) [place] % (Auto) Eos % (Auto) Baso % (Auto) Neut # (Auto) Lymph # (Auto) [place] # (Auto) Eos # (Auto) Baso # (Auto) WBC Differential Differential Comment Sodium Potassium Chloride Carbon Dioxide Anion Gap BUN Creatinine Estimated GFR POC Glucose 182 H Random Glucose Calcium Total Bilirubin AST ALT Alkaline Phosphatase Total Protein Albumin TSH Salicylates Urine Opiates Screen Neg Acetaminophen Ur Barbiturates Screen Neg Ur Amphetamines Screen Neg U Benzodiazepines Scrn Neg Urine Cocaine Screen Pos H U Cannabinoids Screen Neg Serum Alcohol Exam Vital signs: Vital Signs 03/03/18 14:00 Temperature 98.5 F Pulse Rate 89 Respiratory Rate 20 Blood Pressure 132/68 Narrative: Psychomotor agitation, but no EPS, no tremors, no gait disturbance - Constitutional mild distress - Routine HEENT Exam Head: Present: normocephalic, atraumatic Eye: Present: EOMI, PERRL ENT: Present: mucous membranes moist Mental Status Examination Appearance: Dirty, Disheveled Consciousness: Alert Orientation: x4 Motor Activity: Normal gait Speech: Unremarkable Language: Adequate Fund of Knowledge: Adequate Attention and Concentration: Adequate Memory: Unremarkable Mood: Oppositional Affect: Irritable Thought Process & Associations: Loose associations Thought Content: Appropriate Hallucination Type: None Delusion Type: Paranoid Suicidal Ideation: No Suicidal Plan: No Suicidal Intention: No Homicidal Ideation: No Homicidal Plan: No Homicidal Intention: No Insight: Poor Judgment: Poor Assessment and Plan - Assessment (1) Substance-induced psychotic disorder Code(s): F19.959 - Other psychoactive substance use, unspecified with psychoactive substance-induced psychotic disorder, unspecified Status: Acute (2) Schizophrenia Code(s): F20.9 - Schizophrenia, unspecified Status: Acute - Plan Plan: On psychiatric evaluation today the patient continues to present psychotic, with prominent agitation, internal preoccupation, paranoia, he is also reporting auditory hallucinations, even though he does not elaborate about the content. Patient has been using cocaine, Petra, noncompliant with psychotropics. At this moment he seems to be a danger to self and others given his level of psychosis, any psychiatric hospitalization for stabilization. Patient will be admitted in 2700 unit. I will start Abilify 5 mg now for psychosis. Unclear if current psychotic symptoms are related with substance intoxication or with primary psychosis. Collateral still pending. Will consult psychiatry for second opinion. Justification for Continued Inpatient Stay: Patient will be admitted to to psychosis.
[2018-03-04] MEDS: ARIPiprazole 5 MG Tablet PO SCH (16:49)
[2018-03-04] MEDS: Senna/Docusate Sodium 8.6/50 MG Tablet PO SCH (20:25)
[2018-03-05 06:21] LABS: Anion Gap 9 meq/L (5-15); Blood Urea Nitrogen 11 mg/dL (7-18); Calcium 8.5 mg/dL (8.5-10.1); Chloride 104 meq/L (98-107); Cholesterol 131 mg/dL (120-200); Glomerular Filtration Rate Greater Than 89 mL/min (>89); Glucose,Random 239 mg/dL (74-106); Potassium 3.9 meq/L (3.5-5.1); Sodium 139 meq/L (136-145); Triglycerides 107 mg/dL (42-150)
[2018-03-05 06:25] LABS: Chol/HDL Ratio 2.09 Ratio; HDL Cholesterol 62.4 mg/dL (40.0-60.0); LDL Cholesterol,Calculated 47 mg/dL (0-99)
[2018-03-05] MEDS: ARIPiprazole 5 MG Tablet PO SCH (08:14)
[2018-03-05] MEDS: Senna/Docusate Sodium 8.6/50 MG Tablet PO SCH (08:15)
[2018-03-05] MEDS ORDERED: ARIPiprazole 5 MG Tablet PO ONE (11:44)
[2018-03-05] MEDS ORDERED: Melatonin 5 MG Tablet PO PRN (11:46)
[2018-03-05] MEDS ORDERED: Dextrose 50% in Water 50 ML Vial IV.PUSH PRN (11:48)
--- NOTE | 2018-03-05 11:48 | P.PNPSY ---
Subjective Remarks: This notes also serves as my second opinion for involuntary psychiatric hospitalization. Patient seen and examined with nurse. Chart reviewed. Case discussed with nursing staff. Patient noted by nursing to be social on the unit and demanding but otherwise has presented no real behavioral problem. No suicidality or homicidality noted. On my examination today, the patient presents as unengaged in interview. He seems to view our presence as an imposition, preferring to sleep. He is somewhat malodorous and disheveled. He tells me that he needs to be here because he is "messed up. I gotta get myself together." He admits that he has been non-adherent with psychotropic medications. He tells me that he hears voices but cannot describe them in any detail. No SI or HI voiced. Antisocial personality traits noted. Tolerating Abilify well without side effects. No acute physical complaints. I endeavored to obtain past psychiatric, family, chemical dependency and social history from the patient but he is fairly uncooperative, limiting the interview. Vital Signs Temp Pulse Resp BP Pulse Ox 03/05/18 05:49 97.8 F 88 18 141/75 H 98 03/04/18 18:00 98.6 F 96 H 18 130/72 98 03/04/18 15:21 98.6 F 94 H 16 120/68 Intake and Output 03/04/18 03/05/18 03/05/18 22:59 06:59 14:59 Other: Weight 70.76 kg Weight On Admission 71.21 kg Laboratory Tests 03/03/18 03/03/18 03/03/18 14:32 14:32 14:40 WBC 8.0 Hgb 14.8 Plt Count 206 Sodium Potassium Chloride Carbon Dioxide BUN Creatinine Estimated GFR Random Glucose AST 16 ALT 20 Alkaline Phosphatase 72 TSH 0.500 Urine Cocaine Screen Pos H Serum Alcohol Less than 3 03/05/18 05:31 WBC Hgb Plt Count Sodium 139 Potassium 3.9 Chloride 104 Carbon Dioxide 26.0 BUN 11 Creatinine 0.98 Estimated GFR Greater than 89 Random Glucose 239 H AST ALT Alkaline Phosphatase TSH Urine Cocaine Screen Serum Alcohol Review of Systems All other systems reviewed negative except as stated in HPI (Limitation: Uncooperative) Mental Status Examination Appearance: Disheveled, Malodorous Consciousness: Alert Orientation: Person, Place (At least) Motor Activity: Other (No motor abnormalities noted) Speech: Unremarkable Language: Adequate Fund of Knowledge: Adequate Attention and Concentration: Adequate Memory: Unremarkable Mood: Oppositional Affect: Irritable, Blunt Thought Process & Associations: Intact Thought Content: Appropriate Hallucination Type: Auditory (Reported, vague, does not appear internally stimulated) Delusion Type: None Suicidal Ideation: No Homicidal Ideation: No Insight: Poor Judgment: Poor Assessment and Plan - Assessment (1) Cocaine abuse with unspecified cocaine-induced disorder Code(s): F14.19 - Cocaine abuse with unspecified cocaine-induced disorder Status: Acute - Plan Plan: Patient with cocaine abuse and antisocial personality style. Reported AH may be substance-induced or malingered for secondary gain. Keiry antonio psychotic illness is also possible but less likely in the present instance. I will titrate Abilify to 10mg daily for management of reported AH. Check EKG for QTc [UPDATE: NSR, QTc wnl]. Diabetic diet, sliding scale insulin and hospitalist consultation for hyperglycemia. Atarax as needed for anxiety. Melatonin as needed for sleep. Continue to monitor on the inpatient unit. Continue other care as ordered. Patient is capacitated to consent for voluntary admission; voluntary status. Justification for Continued Inpatient Stay: Monitoring for impairment in reality construction. Medication changes. Discharge Planning: Anticipate discharge tomorrow, Sunday. Request Healthcare Surrogate/Guardian Advocate?: No
[2018-03-05] MEDS: Insulin NovoLOG Aspart Correctional Sugar Inj SQ SCH ×3 (12:28→20:32)
--- NOTE | 2018-03-05 14:33 | ECG ---
Date Performed: 03/05/2018 Time Performed: 13:44:34 PTAGE: 37 years EKG: Sinus rhythm NORMAL ECG No significant change from prior electrocardiogram. PREVIOUS TRACING : 06/04/2017 19.19 DOCTOR: Jerry Page Interpretating Date/Time 03/05/2018 14:32:21
--- NOTE | 2018-03-05 15:52 | P.CON ---
History of Present Illness Service: Hospitalist Consult date: 03/05/18 Requesting Physician: Foster Gill Reason for Consult: Medical management Primary Care Provider: UNKNOWN Chief Complaint: I am tired and have not been doing what I should History of Present Illness: Patient is seen lying in bed. Nurses present. He is very sleepy but wakes up easily. Tells me he has not been taking any medications for his known diabetes. He was once started on metformin but only took it for a short while. Has no idea what his A1c is and does not check his sugars. Denies any chest pain or shortness of breath. No nausea vomiting. no other medical complaints. Review of Systems All other systems reviewed negative except as stated in HPI [facility] - History History Provided By: Patient - Medical History Medical History: Medical History (Last Updated 03/05/18 @ 19:06 by LEWIS Shearer) Diabetes No significant past surgical history Non compliance with medical treatment - Family History Family History: Family History (Last Updated 03/05/18 @ 19:06 by LEWIS Shearer) Mother Diabetes - Tobacco History Second Hand Smoke Exposure: No Tobacco Use In Past 30 Days: Yes Smoking Status: Current every day smoker Tobacco Type: Cigarettes - Alcohol History How Often Do You Have a Drink Containing Alcohol: 2 to 3 times a week - Substance Use History Substance History: Active Abuse - 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 DRUG SCREEN POSITIVE FOR COCAINE Patient has a long history of substance use. Patient does not display a desire to change his substance use. Crack/Cocaine Status: Active Route Used: Inhalation Reason for Use: Get High Comment: Patient has a long history of substance use. Patient does not display a desire to change his substance use. - Immunization History Tetanus Immunization: <5 Years Hx Influenza Vaccine This Season: Yes Medications and Allergies Active Medications: Active Medications Al Hydrox/Mg Hydrox/Simethicone (Mag-Al Plus Susp Liq) 30 ml PO Q6H PRN PRN Reason: DYSPEPSIA Al Hydroxide/Mg Hydroxide (Milk Of Magnesia Liq) 30 ml PO Q12H PRN PRN Reason: Mild Constipation Aripiprazole (Abilify) 10 mg PO DAILY KEVAN Dextrose (D50w Vial) 50 ml IV.PUSH UNSCH PRN PRN Reason: PER HYPOGLYCEMIA PROTOCOL Glucagon (Glucagon Inj) 1 mg OTHER PRN PRN PRN Reason: for Hypoglycemia Protocol Hydroxyzine HCl (Atarax) 50 mg PO Q6H PRN PRN Reason: ANXIETY Insulin Aspart (Novolog Insulin Correctional Sugar Inj) 0 unit SQ ACHS [facility]; Protocol Last Admin: 03/05/18 12:28 Dose: 7 unit Melatonin (Melatonin) 5 mg PO HS PRN PRN Reason: INSOMNIA Allergies Allergy/AdvReac Type Severity Reaction Status Date / Time No Known Allergies Allergy Unknown Uncoded 06/04/17 19:21 Home Medications Medication Instructions Recorded Confirmed Type No Known Home Medications 03/03/18 03/03/18 History Physical Exam Vital signs: Vital Signs 03/04/18 18:00 03/05/18 05:49 Temperature 98.6 F 97.8 F Pulse Rate 96 H 88 Respiratory Rate 18 18 Blood Pressure 130/72 141/75 H Pulse Oximetry 98 98 Intake & Output 03/04/18 03/05/18 03/05/18 18:59 06:59 18:59 Weight 70.76 kg Other: Weight On Admission 71.21 kg Narrative: GENERAL: Well-nourished, well-developed adult male slightly disheveled but in no obvious distress. SKIN: Warm and dry. HEAD: Atraumatic. Normocephalic. CARDIOVASCULAR: Regular rate and rhythm. RESPIRATORY: No accessory muscle use. Clear to auscultation. Breath sounds equal bilaterally. GASTROINTESTINAL: Abdomen soft, non-tender, non-distended. Positive bowel sounds. MUSCULOSKELETAL: Extremities without clubbing, cyanosis, or edema. No obvious deformities. NEUROLOGICAL: Sleeping but easily aroused. No obvious cranial nerve deficits. Motor grossly within normal limits. Normal speech. Assessment and Plan - Assessment (1) Diabetes Code(s): E11.9 - Type 2 diabetes mellitus without complications Status: Acute - Plan Patient is a 37-year-old -Turk[place] male with a past medical history of schizophrenia, substance abuse and diabetes. He is admitted to the psychiatry unit and reports recent use of multiple drugs. He also reports that he has not been taking any of the medications prescribed to him including metformin. Hospitalist service consulted for assistance in medical management. Substance abuse/psychosis -Managed by psychiatry Diabetes -Sliding scale while admitted -Patient to follow-up with primary when discharged Discussed with: Patient and nurse. Thank you for this consult. We look forward to assisting you with the medical management of this patient.
[2018-03-05 16:24] VITALS: PULSE 82
[2018-03-05 17:08] LABS: Hemoglobin A1c 8.2 % (4.3-6.0)
[2018-03-06 06:08] VITALS: BP 103/77; RESP 17; TEMP 98.4; O2SAT 100
[2018-03-06] MEDS: Insulin NovoLOG Aspart Correctional Sugar Inj SQ SCH ×2 (08:32→11:26)
[2018-03-06] MEDS ORDERED: ARIPiprazole 5 MG Tablet PO SCH (09:00)
--- NOTE | 2018-03-06 13:19 | P.PN ---
Subjective Interval history: Patient is seen in break room prior to lunch. Denies any new complaints or concerns. Appears uninterested in talking to me. Nursing reports no adverse events. Physical Exam Vital signs: Vital Signs 03/05/18 16:24 03/06/18 06:06 Temperature 98.5 F 98.4 F Pulse Rate 82 82 Respiratory Rate 19 17 Blood Pressure 118/74 103/77 Pulse Oximetry 99 100 Narrative: GENERAL: Well-nourished, well-developed adult male slightly disheveled but in no obvious distress. SKIN: Warm and dry. HEAD: Atraumatic. Normocephalic. CARDIOVASCULAR: Regular rate and rhythm. RESPIRATORY: No accessory muscle use. Clear to auscultation. Breath sounds equal bilaterally. GASTROINTESTINAL: Abdomen soft, non-tender, non-distended. Positive bowel sounds. MUSCULOSKELETAL: Extremities without clubbing, cyanosis, or edema. No obvious deformities. NEUROLOGICAL: Sleeping but easily aroused. No obvious cranial nerve deficits. Motor grossly within normal limits. Normal speech. Results - Labs CBC & Chem 7: 03/03/18 14:32 03/05/18 05:31 Laboratory Results - last 24 hr 03/05/18 03/05/18 03/05/18 05:31 16:50 20:21 POC Glucose 215 H 242 H Hemoglobin A1c 8.2 H 03/06/18 03/06/18 06:03 11:24 POC Glucose 278 H 170 H Hemoglobin A1c Assessment and Plan - Assessment (1) Diabetes Code(s): E11.9 - Type 2 diabetes mellitus without complications Status: Chronic (2) Non compliance with medical treatment Code(s): Z91.19 - Patient's noncompliance with other medical treatment and regimen Status: Chronic - Plan Patient is a 37-year-old -[place] male with a past medical history of schizophrenia, substance abuse and diabetes. He is admitted to the psychiatry unit and reports recent use of multiple drugs. He also reports that he has not been taking any of the medications prescribed to him including metformin. Hospitalist service consulted for assistance in medical management. Substance abuse/psychosis -Managed by psychiatry Diabetes -Sliding scale while admitted -Patient to follow-up with primary when discharged; not currently taking home medications Noncompliance with medical plan -Patient educated on the importance of controlling diabetes in order to protect against potential heart attack, stroke and/or kidney failure. He indicated understanding but appears to unlikely to be compliant with either diet or medications in the future. Discussed with: Patient and nurse. Thank you for this consult. We look forward to assisting you with the medical management of this patient. 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
--- NOTE | 2018-03-06 14:08 | P.DSPSY ---
Psychiatry Discharge Summary Inpatient Psychiatric care?: Yes Advance Directives: No Reason for Unknown:: Other Mental Health Advance Directive: No Health Care Proxy: No - Admission Admission Date: March 04, 2018 14:40 - Admission Diagnosis (1) Cocaine abuse with unspecified cocaine-induced disorder Code(s): F14.19 - Cocaine abuse with unspecified cocaine-induced disorder Brief History: 8:30AM The patient is a 27-year-old AA man, single, homeless, with a psychiatric history of schizophrenia, methamphetamines, Petra and cocaine use disorder, well known by the service, previous psychiatric hospitalizations, with medical history of diabetes, who came to the ER requesting psychiatric evaluation. Patient called the police today requesting to be taken to the hospital for psychiatric evaluation. Patient admits to taking petra recently. He is positive for cocaine. On my psychiatric evaluation I find a patient that is quite disorganized, incoherent, very poor historian, agitated. He says he has been using petra and cocaine constituently for the last days. He has been paranoid thinking people are truing to hurt him. 2:00 AM Patient is reevaluated He continues to be very disorganized, now adding he is hearing voices, but does not elaborate about the content. He seems to be still paranoid and internally preoccupied. Also very unpredictable and potentially aggressive. He does deny suicidal and homicidal ideation, he denies visual hallucinations. He is agitated, but he is not aggressive. PPHx: Schizophrenia, multiple psychiatric hospitalizations, suicidal attempt PMHx: Diabetes Substance Hx: Patient reports the use of cocaine and Petra Family Hx: No family psychiatric history Social Hx: Patient was born and raised in [facility], he is homeless in the area of the [facility], single, unemployed, supported by [facility] Tobacco Use In Past 30 Days: Yes How Often Do You Have a Drink Containing Alcohol: 2 to 3 times a week Hospital Course: Patient was admitted to a locked, inpatient psychiatric unit. A general medical consultation was obtained. Appropriate precautions were in place throughout patient's hospital stay. Patient was seen and examined on the unit by psychiatry and visited by counselor. Psychotropic medications were adjusted. Patient tolerated medication changes well without side effects. There was no evidence of any suicidality or homicidality on the inpatient unit. There was no evidence of significant self-care deficit. On the day of discharge: Patient seen and examined with nurse. Chart reviewed. Case discussed with nursing staff. Patient presented no behavioral issue overnight and is noted to be pleasant and cooperative today. On my examination today, the patient is requesting discharge from the inpatient psychiatric unit today. He tells me "I do not have no more voices. I am ready to go." He denies any suicidal or homicidal ideation, intent or plan. I can elicit no depressive or hypomanic/manic symptoms. As noted above, the patient denies any audiovisual hallucinations. He has no command auditory hallucinations to hurt self or others. I can elicit no delusional material. There is no evidence of ongoing impairment in reality construction. He denies side effects from medications. He has no physical complaints. He notes that he plans to go stay with his girlfriend Gaye, and the counselor has been in contact with Gaye and reports to me that she is comfortable with receiving the patient home today. Suicide and violence risk assessment on day of discharge both suggest lower imminent risk from mental illness as defined under the [place] act, and the patient's level of function is adequate for outpatient care. There are no acute risk factors: No suicidal or homicidal ideation, no severe depressive illness, no ongoing impairment in reality construction, no current substance intoxication. Patient's substance use issues present a chronic risk factor, and I have counseled the patient to pursue chemical dependency evaluation and treatment on an outpatient basis. The patient does not meet criteria for involuntary psychiatric hospitalization. He is requesting discharge from the inpatient psychiatric unit today, and I have no basis to retain him over his objection. Patient will be discharged today with psychiatric follow-up as arranged by counselor. Patient is also to follow up with primary care. I have counseled the patient regarding warning signs for need to return to the psychiatric emergency room as part of a general safety plan. - Discharge Discharge Date: 03/06/18 - Discharge Diagnosis (1) Cocaine abuse Diagnosis: Principal Code(s): F14.10 - Cocaine abuse, uncomplicated Status: Chronic Discharge Disposition: Home - Discharge Instructions Discharge Diet: Diabetic Diet Activities You Can Perform: Weight Bearing As Tolerat - Discharge Time <= 30 minutes Mental Status Examination Appearance: Appropriate Consciousness: Alert Orientation: x4 Motor Activity: Other (No abnormal motor movements noted. No signs of intoxication or withdrawal noted.) Speech: Unremarkable Language: Adequate Fund of Knowledge: Adequate Attention and Concentration: Adequate Memory: Unremarkable Mood: Appropriate Affect: Appropriate Thought Process & Associations: Intact, Logical, Linear Thought Content: Appropriate Hallucination Type: None Delusion Type: None Suicidal Ideation: No Suicidal Plan: No Suicidal Intention: No Homicidal Ideation: No Homicidal Plan: No Homicidal Intention: No Mental Status Exam Remarks: Insight and judgment are likely chronically poor. Discharge/Advance Care Plan - Results Vital Signs: Last Vital Signs Temp 98.4 F 03/06/18 06:06 Pulse 82 03/06/18 06:06 Resp 17 03/06/18 06:06 BP 103/77 03/06/18 06:06 Pulse Ox 100 03/06/18 06:06 Lab Results: Abnormal Lab Results 03/05/18 03/05/18 03/05/18 05:31 16:50 20:21 POC Glucose 215 H 242 H Hemoglobin A1c 8.2 H 03/06/18 03/06/18 06:03 11:24 POC Glucose 278 H 170 H Hemoglobin A1c Laboratory Results Hemoglobin A1c 8.2 % (4.3-6.0) H 03/05/18 05:31 Triglycerides 107 mg/dL (42-150) 03/05/18 05:31 Cholesterol 131 mg/dL (120-200) 03/05/18 05:31 LDL Cholesterol, Calc 47 mg/dL (0-99) 03/05/18 05:31 HDL Cholesterol 62.4 mg/dL (40.0-60.0) H 03/05/18 05:31 TSH 0.500 uIU/mL (0.358-3.740) 03/03/18 14:32 Summary of Procedures: None done Pending Results: None - Medications Number of antipsychotic medications at discharge: 1 - Discharge Care Plan Goals to Promote Your Health: * To prevent worsening of your condition and complications * To maintain your health at the optimal level Directions to Meet Your Goals: Take your medications as prescribed Follow your dietary instruction Follow activity as directed Keep your appointments as scheduled Take your immunizations and boosters as scheduled If your symptoms worsen call your PCP, if no PCP go to Urgent Care Center or Emergency Room For 04/12 questions related to your inpatient stay or results of tests pending at discharge, please contact Dr. Foster Gill MD at [phone] Smoking is Dangerous to Your Health. Avoid second hand smoking
== END 2018-03-06 15:45 | disposition home or self-care (01) ==
LOC: NEPC 13:16 → NEDA 03-04 14:40 → H270 03-04 16:41
PROVIDERS: ADMIT Psychiatry & Neurology Psychiatry; ATTEND Psychiatry & Neurology Psychiatry